=== PATIENT | male | born 1960 | race Caucasian/White ===

== ENCOUNTER 2019-05-14 18:36 | Inpatient (IN) ==
[2019-05-14] MEDS ORDERED: SODIUM CHLORIDE 0.9% 1000ML 1,000 ML IV SCH (19:15)
[2019-05-14 19:27] LABS: Basophils # (auto) 0.02 K/uL (0-0.2); Basophils % (auto) 0.2 %; Eosinophils # (auto) 0.01 K/uL (0-0.5); Eosinophils % (auto) 0.1 %; Hematocrit (blood only) 35.4 % (42-52); Hemoglobin 11.4 g/dL (14.0-18.0); Immature Granulocytes # (auto) 0.02 K/uL (0.00-0.02); Immature Granulocytes % (auto) 0.2 %; Lymphocytes % (auto) 10.5 %; Mean Corpuscular Hgb Conc 32.2 g/dL (32-36); Mean Corpuscular Volume 89.4 fL (80-100); Monocytes # (auto) 1.03 K/uL (0.11-0.59); Monocytes % (auto) 9.1 %; Neutrophils % (auto) 79.9 %; Platelet Count 302 K/uL (130-400); RDW Coefficient of Variation 15.7 % (11.5-14.5); RDW Standard Deviation 49.9 fL (36.4-46.3); Red Blood Count 3.96 M/uL (4.7-6.1); White Blood Count 11.38 K/uL (4.8-10.8)
--- NOTE | 2019-05-14 19:39 | XRay Report ---
XR chest 1V portable CLINICAL HISTORY: 58 years-old Male presenting with weakness. TECHNIQUE: Portable upright AP view of the chest was obtained. COMPARISON: 05/03/2019. FINDINGS: Cardiac silhouette mildly enlarged as on prior exam. Resolution of prior pulmonary vascular prominenc e. Resolution of prior interlobular septal thickening and added density in the lungs. No focal opacit y. No large effusion or pneumothorax. Degenerative changes of the thoracic spine. Upper abdomen melissa l. IMPRESSION: 1. Cardiomegaly with resolution of prior volume overload, congestive change, and pulmonary edema. No convincing evidence of acute cardiopulmonary disease on the current exam. Electronically signed by: Stanley Lopez M.D. 05/14/2019 7:38 PM
[2019-05-14 19:45] LABS: iSTAT Creatinine 1.2 mg/dl (0.6-1.3); iSTAT Hemoglobin 11.2 g/dl (14.0-18.0); iSTAT Ionized Calcium 1.09 mmol/l (1.12-1.32); iSTAT Potassium 5.1 mEq/L (3.3-5.0)
[2019-05-14 19:45] LABS: Alanine Aminotransferase 45 U/L (12-78); Albumin Level 3.3 gm/dl (3.4-5.0); Aspartate Aminotransferase 18 U/L (15-37); BUN Creatinine Ratio 23.6 (10-20); Blood Urea Nitrogen 32 mg/dl (7-18); Calcium 9.5 mg/dl (8.5-10.1); Carbon Dioxide 20 mmol/L (21-32); Chloride 107 mmol/L (98-107); Est GFR (African American) 67.5; Est GFR (Non-African American) 58.3; Glucose 163 mg/dl (70-99); Magnesium 1.6 mg/dl (1.8-2.4); Potassium 4.9 mmol/L (3.5-5.1); Sodium 138 mmol/L (136-145)
[2019-05-14 19:56] LABS: Albumin Globulin Ratio 0.6 (0.9-2); Alkaline Phosphatase 75 U/L (45-117); Bilirubin,Total 0.4 mg/dl (0.2-1); Creatine Kinase 29 U/L (39-308); Globulin 5.9 gm/dl (2.5-4.0); Total Protein 9.2 gm/dl (6.4-8.2)
--- NOTE | 2019-05-14 19:57 | CT Scan Report ---
CT head/brain wo con CLINICAL HISTORY: 58 years-old Male presenting with Pt c/o dizziness. TECHNIQUE: Multidetector CT imaging of the head was performed without the use of intravenous contrast . IV contrast: None. One or more dose lowering techniques were used consistent with the principles of ALARA (as low as reasonably achievable), including automatic exposure control, mA or kV adjustment t o individual patient size, and/or use of iterative reconstruction. COMPARISON: None. CT DOSE (mGy.cm): The estimated cumulative dose is 537.48 mGy.cm. FINDINGS: Commission Specialist topogram: Unremarkable. Ventricles and sulci normal in size. No hemorrhage. Brain parenchyma normal in appearance with preser sharifa zaldivar-white differentiation. No acute territorial infarct. No mass effect or midline shift. No ext ra-axial fluid collection. Paranasal sinuses and mastoid air cells clear. Calvarium intact. IMPRESSION: 1. No acute intracranial abnormality. Electronically signed by: Stanley Lopez M.D. 05/14/2019 7:56 PM
--- NOTE | 2019-05-14 20:06 | CT Scan Report ---
CT abd pelvis wo con CLINICAL HISTORY: 58 years-old Male presenting with ureteral stents, back pain. TECHNIQUE: Multidetector CT of the abdomen and pelvis was performed without the use of intravenous co ntrast. IV contrast: None. One or more dose lowering techniques were used consistent with the princip les of ALA (as low as reasonably achievable), including automatic exposure control, mA or kV adjust ment to individual patient size, and/or use of iterative reconstruction. COMPARISON: None. CT DOSE (mGy.cm): The estimated cumulative dose is 1468.87 mGy.cm. FINDINGS: Animal Care Giver topogram: Bilateral ureteral stents in place. Lung bases: Multichamber enlargement of the heart. Coronary artery calcification. No pericardial or p leural effusion. No focal infiltrate or nodule at the lung bases. Liver: Normal morphology. Normal density. Biliary: No gross biliary ductal dilatation allowing for noncontrast technique. Gallbladder contains gallstones. Pancreas: Normal noncontrast appearance. Spleen: Normal noncontrast appearance. Adrenal glands: Normal noncontrast appearance. Kidneys and ureters: Bilateral moderate perinephric fat infiltration. No right hydronephrosis. Mild t o moderate left pelvocaliectasis with distention of the left ureter to the level of 2 adjacent large calculi measuring 20 mm and 16 mm in the mid to distal left ureter. The right ureter is nondistended though there is a 7 mm calculus in the proximal right ureter. Bilateral urothelial thickening evident with bilateral ureteral stents in place. Bladder: 11 mm bladder calculus. Mild circumferential bladder wall thickening. Pelvic organs: Prostate enlargement likely secondary to benign prostatic hyperplasia. Bowel: Diverticulosis of the proximal to mid sigmoid colon and minimally in the distal descending col on. Focal wall thickening and trace pericolonic fat infiltration and peritoneal thickening in the lef t lower quadrant. The appendix is normal. No bowel obstruction. Peritoneal cavity: No extraluminal gas or fluid collection in the left lower quadrant adjacent to the inflamed sigmoid colon. No free intraperitoneal fluid or gas. Lymph nodes: No gross lymphadenopathy allowing for noncontrast technique. Vasculature: Atherosclerosis of the normal caliber abdominal aorta. Abdominal wall: Nodular infiltration in the subcutaneous tissue of the right chest wall (series 3 abby ge [id number]). Musculoskeletal: Degenerative changes of the spine. IMPRESSION: 1. Acute uncomplicated diverticulitis in the proximal to mid sigmoid colon in the left lower quadran t. No abscess or extraluminal gas. 2. Left pelvocaliectasis and distention of the left ureter raises concern for hydroureteronephrosis despite the presence of the left ureteral stent. 3. 2 adjacent large mid to distal left ureteral calculi may be resulting in obstruction or partial o bstruction. 4. Subcentimeter proximal right ureteral calculus. Right ureteral stent. No right hydronephrosis. 5. Urothelial thickening bilaterally may be reactive to the presence of the stents. Correlate with u rinalysis to exclude superinfection. 6. Prostatomegaly with suspected chronic bladder outlet obstruction. 7. Cholelithiasis. Electronically signed by: Stanley Lopez M.D. 05/14/2019 8:05 PM
--- NOTE | 2019-05-14 21:56 | History & Physical Report ---
Date of Service May 14, 2019 Assessment & Plan (1) Lightheadedness: Mr. Dorsey is a 58-year-old male with a past medical history of hypertension, diabetes mellitus, recent admission to [facility] for acute kidney injury secondary to bilateral nephrolithiasis, requiring emergent dialysis and bilateral ureteral stents who presents to the emergency department due to a 4- day history of lightheadedness. ED course: 1 L normal saline bolus Lightheadedness -Head CT negative -coincides with the start of both of his blood pressure medications, and seems orthostatic in nature -Orthostatic vital signs ordered -We will hold home amlodipine, and continue metoprolol -May also be related to palpitations, see below Palpitations -Patient describes long-standing history of a "fast heart rate," but denies a diagnosis of arrhythmia -TSH normal at 3.83, no electrolyte abnormalities noted -Reviewed records from [place], they mention a diagnosis of atrial fibrillation, however there are no further details and the patient is not on any anticoagula tion -EKG in the emergency department shows sinus tachycardia -Continue metoprolol -Monitor on telemetry -Request records from [place] from prior admission Acute diverticulitis -CT abdomen and pelvis shows acute uncomplicated diverticulitis in the proximal to mid sigmoid colon -mildly tachycardic, BP stable, afebrile, elevated WCC of 11.38 -no history of prior diverticulitis -IV Cipro and Flagyl ordered Bilateral nephrolithiasis -Patient is recently life flighted to [place] on 05/03 for bilateral nephrolithiasis resulting in acute kidney injury with a creatinine of 36 - patient required emergency dialysis -Creatinine has normalized to 1.35 -CT abdomen and pelvis today -> " left pelvic caliectasis and distention of the left ureter raises concern for hydroureteronephrosis despite the left ureteral stent. 2 adjacent large mid to distal left ureteral calculi may be resulting in obstruction" -Patient without any urinary symptoms, but does endorse left-sided back pain -consult urology, recommendations appreciated -CT scan also showed "urothelial thickening bilaterally - either reactive or superinfection" - will order UA to assess Hypertension -continue metoprolol, hold home amlodipine Diabetes mellitus -Hold home metformin -Place on insulin sliding scale with BSG AC/HS Hypomagnesemia -Magnesium 1.6 in the emergency department, repleted with 1 g magnesium sulfate CODE STATUS: Full DVT prophylaxis: Lovenox 40 mg SQ daily Disposition: Admit to med/surg with telemetry (2) Palpitations: (3) Diverticulitis: (4) Diabetes mellitus: (5) Hypertension: (6) Bilateral nephrolithiasis: History of Present Illness Chief Complaint: Lightheadedness Primary Care Provider: NO PCP Mr. Dorsey is a 58-year-old male with a past medical history of hypertension, diabetes mellitus, recent admission to [facility] for acute kidney injury secondary to bilateral nephrolithiasis, requiring emergent dialysis and bilateral ureteral stents who presents to the emergency department due to a 4-day history of lightheadedness. The patient states that he was started on several medications in [place], including 2 blood pressure medications. He states that after he started taking his medications 5 days ago, he began to feel lightheaded with standing. He denies any overt dizziness. He states that he is does not have any symptoms when lying down, however has a hard time walking due to severe lightheadedness, resulting in him feeling like he may pass out. He also endorses a long time history of a rapid heart rate, and states he feels like he "breathes heavier than regular people." He denies any history of chest pain, or prior history of [place]. He states he has never seen a [facility] for this, and has never been diagnosed with an arrhythmia. He denies any fever, chills, nausea, vomiting, or diarrhea. He states that he has been eating and drinking well. He has follow-up appointments arranged with a new primary care provider, and urologist, to establish care and follow-up from his recent discharge. Past medical history: HTN, Diabetes Mellitus, b/l nephrolithiasis Past surgical history: b/l ureteral stent placement Medications: Amlodipine, ferrous sulfate, folic acid, metformin, metoprolol, potassium chloride Allergies: No known drug allergies Social Hx: Quit smoking 25 years ago, chews tobacco daily. No recent alcohol or recreational drug use. Allergies Allergy/AdvReac Type Severity Reaction Status Date / Time No Known Allergies Allergy Unverified 05/14/19 20:13 Home Medications Home Medications Medication Instructions Recorded Confirmed Type amlodipine 2.5 mg tablet 2.5 mg PO DAILY 05/11/19 05/14/19 History ferrous sulfate 325 mg (65 mg 325 mg PO DAILY tab 05/11/19 05/14/19 History iron) tablet folic acid 1 mg tablet 1 mg PO DAILY 05/11/19 05/14/19 History metformin 500 mg tablet 500 mg PO BID 05/11/19 05/14/19 History metoprolol tartrate 50 mg tablet 50 mg PO BID 05/11/19 05/14/19 History potassium chloride ER 20 mEq 20 meq PO DAILY 05/11/19 05/14/19 History tablet,extended release Past Med/Surg History Social History Preferred Language: Hungarian Communication Ability: Effective Clean Room Assembler Required: No Beliefs That Will Affect Care: None marital status: Single Current Living Situation: Alone and Family Current Living Situation Comment: lives in downstairs apt from brother current occupational status: unemployed Other Information That Helps Us Care for You: No Feels Safe at Home: Yes Safety Concerns: Feels Safe At This Time Smoking Status: Former smoker Tobacco Type: smokeless tobacco ; Do You Dip or Chew Tobacco: No ; Hx Alcohol Use: No Hx Substance Use: No Review of Systems Constitutional: no fever, no chills, no fatigue and no anorexia Respiratory: no cough, no dyspnea, no pain on inspiration and no wheezing Cardiovascular: + palpitations; no chest pain, no syncope, no edema and no calf pain Gastrointestinal: no abdominal pain, no nausea, no vomiting, no change in bowel habits and no melena Genitourinary: no dysuria, no difficulty urinating, no urinary frequency, no urinary hesitancy, no hematuria and no flank pain Neurologic: + unsteadiness; no gait abnormality, no falls, no loss of sensation, no numbness, no syncope and no headache(s) Physical Exam Constitutional: WD/WN, vitals as above + disheveled, cooperative and comfortable Eyes: PERRL, conjunctivae normal, anicteric sclerae ENMT: external ear and nose normal, oropharynx normal Mouth: + poor dentition and + chipped teeth Respiratory: normal respiratory effort, lungs clear to auscultation Cardiovascular: Rate/Rhythm: regular rhythm and + tachycardic Extremities: no calf tenderness and no pedal edema Gastrointestinal (Abdomen): Percussion/Palpation: + abdomen tender (tender in LLQ) and abdomen soft; no guarding and abdomen not rigid Musculoskeletal: no cyanosis or clubbing, extremities motor strength 5/5 Skin: no rashes, warm and dry Neurologic: patellar DTR's 2+ bilat, sensation intact and PERRL, EOMI, accommodation nl, no face palsy, no dysarthria Psychiatric: A+Ox3, euthymic affect Results & Data Vital Signs (Past 12 Hours) Vital Signs Temp Pulse Pulse Resp BP BP Pulse Ox 05/14/19 20:49 100 H 16 112/71 94 05/14/19 20:38 102 H 18 95 05/14/19 19:04 112 H 24 109/76 93 05/14/19 18:43 36.6 C 82 22 105/66 98 Code Status & VTE Plan VTE Prophylaxis Plan VTE Prophylaxis will be ordered: Yes Supervising Physician Co-Signing Physician Notes Patient was seen and examined by me personally. I reviewed the chart, the orders and discussed the case in detail with Claudia Naik MD . I read this H&P and agree with its contents to entirety. PG Care Time/CCT Total # of Minutes Spent Total Time Spent with Patient: Total time spent is greater than 50% in coordination of care (as documented) at patient's floor/unit and/or counseling patient: Resident Activity Tracking Resident Involvement: Resident Care Provided Care Provided: Adult Hospital Medicine
[2019-05-14] MEDS ORDERED: GLUCAGON FOR INJ 1 MG VIAL SQ PRN (23:14)
[2019-05-14] MEDS ORDERED: MAGNESIUM SULFATE / D5W 1 GM/100 ML BAG IV ONE (23:14)
[2019-05-14] MEDS ORDERED: DEXTROSE 50% 50 ML SYRINGE IV PRN (23:14)
[2019-05-14] MEDS ORDERED: CARBOHYDRATES FOR HYPOGLYCEMIA PO PRN (23:14)
[2019-05-14] MEDS ORDERED: ACETAMINOPHEN 325 MG TAB PO PRN (23:14)
[2019-05-14] MEDS ORDERED: GLUCOSE 10 TABS/TUBE PO PRN (23:14)
[2019-05-14] MEDS ORDERED: GLUCOSE 40% GEL 15 GM TUBE PO PRN (23:14)
[2019-05-14] MEDS ORDERED: ONDANSETRON INJ 2 MG/ML 2 ML VIAL IV PRN (23:14)
[2019-05-15] MEDS: METOPROLOL TARTRATE 50 MG TAB PO SCH ×3 (00:19→20:19)
[2019-05-15] MEDS: metroNIDAZOLE 500 MG/100 ML BAG IV SCH ×4 (00:25→23:23)
--- NOTE | 2019-05-15 00:36 | Emergency Department Note ---
Entered by Marry Nowak acting as a scribe for Curtis Jamison MD History of Present Illness General Chief complaint: Dizziness Stated complaint: POSSIBLE ALLERGIC REACTION TO MEDICATIONS Time Seen by Provider: 05/14/19 19:04 Source: patient History of Present Illness Provider complaint: Dizziness Onset (ago): day(s) 2 Location: head Pain Consistency: + constant Maximum Pain Intensity: 1 Quality: + constant Associated symptoms: + other (Positive: dizziness, lightheadedness, rapid breathing. Negative: urinary symptoms ) The patient is a 58 year old male with past medical history of acute renal failure, dehydration, hyperkalemia, metabolic acidosis, hyperuricemia, who presents to the ED with complaints of constant dizziness and lightheadedness that started 2 days ago. The patient reports he is lightheaded and gets dizzy when he walks. He notes he breathes very rapidly when he takes a few steps. The patient additionally reports he thinks his symptoms might be due to starting new medications on Sunday. He reports he has history of very high potassium levels and kidney failure. He notes he has stents in his kidneys. The patient denies urinary symptoms. Home Medications Home Medications Medication Instructions Recorded Confirmed Type amlodipine 2.5 mg tablet 2.5 mg PO DAILY 05/11/19 05/14/19 History ferrous sulfate 325 mg (65 mg 325 mg PO DAILY tab 05/11/19 05/14/19 History iron) tablet folic acid 1 mg tablet 1 mg PO DAILY 05/11/19 05/14/19 History metformin 500 mg tablet 500 mg PO BID 05/11/19 05/14/19 History metoprolol tartrate 50 mg tablet 50 mg PO BID 05/11/19 05/14/19 History potassium chloride ER 20 mEq 20 meq PO DAILY 05/11/19 05/14/19 History tablet,extended release Allergies Allergy/AdvReac Type Severity Reaction Status Date / Time No Known Allergies Allergy Unverified 05/14/19 20:13 Past Med/Surg History Social History Preferred Language: Turkmen Communication Ability: Effective Dev 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 and A total of 10 systems reviewed and were otherwise negative Physical Exam Vital Signs Vital Signs - 24 hr 05/14/19 18:43 05/14/19 19:04 05/14/19 20:38 Temperature 36.6 C Temperature Source Oral Sepsis Recent Fever Within 48 Hours No Sepsis New/Unexplained Change in Mental Status No Sepsis Action Taken by Nursing No Action Required Pulse Rate 82 102 H Pulse Rate [Apical] 112 H Pulse Rhythm Regular Pulse Rhythm [Apical] Regular Respiratory Rate 22 24 18 Respiratory Effort / Characteristics Non-Labored Respiratory Depth Normal Shallow Respiratory Pattern Regular Tachypnea Blood Pressure 105/66 Blood Pressure [Right Arm] 109/76 Blood Pressure Mean 79 Blood Pressure Mean [Right Arm] 87 Blood Pressure Position Sitting Pulse Oximetry 98 93 95 Oxygen Delivery Method Room Air Room Air Room Air 05/14/19 20:39 05/14/19 20:49 Temperature 36.4 C L Temperature Source Oral Sepsis Recent Fever Within 48 Hours Sepsis New/Unexplained Change in Mental Status Sepsis Action Taken by Nursing Pulse Rate Pulse Rate [Apical] 103 H 100 H Pulse Rhythm Pulse Rhythm [Apical] Regular Respiratory Rate 28 H 16 Respiratory Effort / Characteristics Non-Labored Spontaneous Respiratory Depth Normal Respiratory Pattern Regular Blood Pressure Blood Pressure [Right Arm] 104/72 112/71 Blood Pressure Mean Blood Pressure Mean [Right Arm] 82 84 Blood Pressure Position Pulse Oximetry 94 94 Oxygen Delivery Method Room Air Room Air GENERAL: Awake, alert, well-appearing, in no acute distress HENT: Normocephalic, atraumatic. Oropharynx unremarkable. EYES: Normal conjunctiva. Sclera non-icteric. NECK: Supple. No nuchal rigidity. FROM. No JVD. RESPIRATORY: Clear to auscultation. CARDIAC: Regular rate, normal rhythm. Extremities warm and well perfused. Pulses equal. ABDOMEN: Soft, non-distended. No tenderness to palpation. No rebound or guarding. No masses. RECTAL: Deferred. MUSCULOSKELETAL: Chest examination reveals no tenderness. The back is symmetrical on inspection without obvious abnormality. There is no CVA tenderness to palpation. No joint edema. LOWER EXTREMITIES: Calves are equal size bilaterally and non-tender. +2 pitting edema bilaterally. No discoloration. NEURO: Normal sensorium. No sensory or motor deficits noted. SKIN: No rash or jaundice noted. Course 1910: The patient was evaluated in room A4B. A complete history and physical e xam was performed. 2050: I discussed the patient's case with Dr. Aguero, [facility] Hospitalist. He will evaluate the patient for further management. Administered Medications Metronidazole (Flagyl) 500 mg in 100 mls @ 100 mls/hr IV Q8H YASIR Stop: 05/25/19 00:00 Last Admin: 05/15/19 00:25 Dose: 100 mls/hr Documented by: [id number] Metoprolol Tartrate (Lopressor) 50 mg PO BID YASIR Stop: 06/13/19 23:13 Last Admin: 05/15/19 00:19 Dose: 50 mg Documented by: [id number] Discontinued Medications Sodium Chloride (Nss 1000ml) 1,000 mls @ 999 mls/hr IV .Q1H1M YASIR Stop: 05/14/19 20:15 Last Infusion: 05/14/19 22:17 Dose: 0 mls/hr Documented by: [id number] Admin: 05/14/19 20:26 Dose: 999 mls/hr Documented by: [id number] Magnesium Sulfate/Dextrose (Magnesium Sulfate / D5w) 1 gm in 100 mls @ 100 mls/hr IV ONE ONE Stop: 05/15/19 00:13 Last Admin: 05/15/19 00:24 Dose: 100 mls/hr Documented by: [id number] Medical Decision Making Differential Diagnosis Differential Diagnosis: Differential diagnosis includes etiologies such as benign positional vertigo, dehydration, hypovolemia, anemia, tumor, infection, hypoglycemia, electrolyte abnormalities, cardiac sources, intracerebral event, toxicologic, neurologic, as well as others were entertained. Medical Records Attestation: I reviewed the patient's medical records. Home Medications Current Medication List: was personally reviewed by me Laboratory Data Attestation: I reviewed the patient's lab results. Result diagrams: 05/14/19 19:07 05/14/19 19:07 Lab Results 05/14/19 05/14/19 05/14/19 Range/Units 19:07 19:07 19:10 WBC 11.38 H (4.8-10.8) K/uL RBC 3.96 L (4.7-6.1) M/uL Hgb 11.4 L (14.0-18.0) g/dL POC Hgb (14.0-18.0) g/dl Hct 35.4 L (42-52) % POC Hct (42-52) % MCV 89.4 (80-100) fL MCH 28.8 (25-34) pg MCHC 32.2 (32-36) g/dL RDW Std Deviation 49.9 H (36.4-46.3) fL RDW Coeff of Mayito 15.7 H (11.5-14.5) % Plt Count 302 (130-400) K/uL MPV 9.0 (7.4-10.4) fL Immature Gran % (Auto) 0.2 % Neut % (Auto) 79.9 % Lymph % (Auto) 10.5 % Mccreary % (Auto) 9.1 % Eos % (Auto) 0.1 % Baso % (Auto) 0.2 % Immature Gran # (Auto) 0.02 (0.00-0.02) K/uL Neut # (Auto) 9.10 H (1.4-6.5) K/uL Lymph # (Auto) 1.20 (1.2-3.4) K/uL Mccreary # (Auto) 1.03 H (0.11-0.59) K/uL Eos # (Auto) 0.01 (0-0.5) K/uL Baso # (Auto) 0.02 (0-0.2) K/uL POC Sodium (135-144) mEq/L Sodium 138 (136-145) mmol/L POC Potassium (3.3-5.0) mEq/L Potassium 4.9 (3.5-5.1) mmol/L POC Chloride (101-112) mEq/L Chloride 107 (98-107) mmol/L Carbon Dioxide 20 L (21-32) mmol/L POC Total CO2 (24-31) mEq/l Anion Gap 11.0 (3-11) POC Anion Gap (16-25) mmol/L POC BUN (7-18) mg/dl BUN 32 H (7-18) mg/dl Creatinine 1.35 (0.6-1.4) mg/dl POC Creatinine (0.6-1.3) mg/dl Est Cr Clr Drug Dosing Not Reportable Est GFR ( Amer) 67.5 Est GFR (Non-Af Amer) 58.3 BUN/Creatinine Ratio 23.6 H (10-20) Glucose 163 H (70-99) mg/dl POC Glucose 161 H (70-99) POC Glucose (other) (70-99) mg/dl Calcium 9.5 (8.5-10.1) mg/dl POC Ioniz Calcium Nabeel (1.12-1.32) mmol/l Magnesium 1.6 L (1.8-2.4) mg/dl Total Bilirubin 0.4 (0.2-1) mg/dl AST 18 (15-37) U/L ALT 45 (12-78) U/L Alkaline Phosphatase 75 (45-117) U/L Total Creatine Kinase 29 L (39-308) U/L Total Protein 9.2 H (6.4-8.2) gm/dl Albumin 3.3 L (3.4-5.0) gm/dl Globulin 5.9 H (2.5-4.0) gm/dl Albumin/Globulin Ratio 0.6 L (0.9-2) TSH 3.830 (0.300-4.500) uIu/ml 05/14/19 Range/Units 19:33 WBC (4.8-10.8) K/uL RBC (4.7-6.1) M/uL Hgb (14.0-18.0) g/dL POC Hgb 11.2 L (14.0-18.0) g/dl Hct (42-52) % POC Hct 33 L (42-52) % MCV (80-100) fL MCH (25-34) pg MCHC (32-36) g/dL RDW Std Deviation (36.4-46.3) fL RDW Coeff of Mayito (11.5-14.5) % Plt Count (130-400) K/uL MPV (7.4-10.4) fL Immature Gran % (Auto) % Neut % (Auto) % Lymph % (Auto) % Mccreary % (Auto) % Eos % (Auto) % Baso % (Auto) % Immature Gran # (Auto) (0.00-0.02) K/uL Neut # (Auto) (1.4-6.5) K/uL Lymph # (Auto) (1.2-3.4) K/uL Mccreary # (Auto) (0.11-0.59) K/uL Eos # (Auto) (0-0.5) K/uL Baso # (Auto) (0-0.2) K/uL POC Sodium 139 (135-144) mEq/L Sodium (136-145) mmol/L POC Potassium 5.1 H (3.3-5.0) mEq/L Potassium (3.5-5.1) mmol/L POC Chloride 107 (101-112) mEq/L Chloride (98-107) mmol/L Carbon Dioxide (21-32) mmol/L POC Total CO2 22 L (24-31) mEq/l Anion Gap (3-11) POC Anion Gap 16.0 (16-25) mmol/L POC BUN 39 H (7-18) mg/dl BUN (7-18) mg/dl Creatinine (0.6-1.4) mg/dl POC Creatinine 1.2 (0.6-1.3) mg/dl Est Cr Clr Drug Dosing Est GFR ( Amer) Est GFR (Non-Af Amer) BUN/Creatinine Ratio (10-20) Glucose (70-99) mg/dl POC Glucose (70-99) POC Glucose (other) 157 H (70-99) mg/dl Calcium (8.5-10.1) mg/dl POC Ioniz Calcium Nabeel 1.09 L (1.12-1.32) mmol/l Magnesium (1.8-2.4) mg/dl Total Bilirubin (0.2-1) mg/dl AST (15-37) U/L ALT (12-78) U/L Alkaline Phosphatase (45-117) U/L Total Creatine Kinase (39-308) U/L Total Protein (6.4-8.2) gm/dl Albumin (3.4-5.0) gm/dl Globulin (2.5-4.0) gm/dl Albumin/Globulin Ratio (0.9-2) TSH (0.300-4.500) uIu/ml Imaging Data Radiologist's Impression: Radiology results as stated below per my review and the radiologist's interpretation: XR chest 1V portable CLINICAL HISTORY: 58 years-old Male presenting with weakness. TECHNIQUE: Portable upright AP view of the chest was obtained. COMPARISON: 05/03/2019. FINDINGS: Cardiac silhouette mildly enlarged as on prior exam. Resolution of prior pulmonary vascular prominence. Resolution of prior interlobular septal t hickening and added density in the lungs. No focal opacity. No large effusion or pneumothorax. Degenerative changes of the thoracic spine. Upper abdomen normal. IMPRESSION: 1. Cardiomegaly with resolution of prior volume overload, congestive change, and pulmonary edema. No convincing evidence of acute cardiopulmonary disease on the current exam. Electronically signed by: Stanley Lopez M.D. 05/14/2019 7:[address] head/brain wo con CLINICAL HISTORY: 58 years-old Male presenting with Pt c/o dizziness. TECHNIQUE: Multidetector CT imaging of the head was performed without the use of intravenous contrast. IV contrast: None. One or more dose lowering techniques were used consistent with the principles of ALARA (as low as reasonably achievable), including automatic exposure control, mA or kV adjustment to individual patient size, and/or use of iterative reconstruction. COMPARISON: None. CT DOSE (mGy.cm): The estimated cumulative dose is 537.48 mGy.cm. FINDINGS: Money Room Supervisor topogram: Unremarkable. Ventricles and sulci normal in size. No hemorrhage. Brain parenchyma normal in appearance with preserved zaldivar-white differentiation. No acute territorial infarct. No mass effect or midline shift. No extra-axial fluid collection. Paranasal sinuses and mastoid air cells clear. Calvarium intact. IMPRESSION: 1. No acute intracranial abnormality. Electronically signed by: Stanley Lopez M.D. 05/14/2019 7:56 PM ADDENDUM Additional impression: 8. Nodular subcutaneous fat infiltration in the right chest wall. This is indeterminate. Correlate with physical exam. It is not known if this is associated with the right breast as the right nipple was not included within the [id number]. Electronically signed by: Stanley Lopez M.D. 05/14/2019 8:[address] abd pelvis wo con CLINICAL HISTORY: 58 years-old Male presenting with ureteral stents, back pain. TECHNIQUE: Multidetector CT of the abdomen and pelvis was performed without the use of intravenous contrast. IV contrast: None. One or more dose lowering techniques were used consistent with the principles of ALARA (as low as reasonably achievable), including automatic exposure control, mA or kV adjustment to individual patient size, and/or use of iterative reconstruction. COMPARISON: None. CT DOSE (mGy.cm): The estimated cumulative dose is 1468.87 mGy.cm. FINDINGS: Money Room Supervisor topogram: Bilateral ureteral stents in place. Lung bases: Multichamber enlargement of the heart. Coronary artery calcification. No pericardial or pleural effusion. No focal infiltrate or nodule at the lung bases. Liver: Normal morphology. Normal density. Biliary: No gross biliary ductal dilatation allowing for noncontrast technique. Gallbladder contains gallstones. Pancreas: Normal noncontrast appearance. Spleen: Normal noncontrast appearance. Adrenal glands: Normal noncontrast appearance. Kidneys and ureters: Bilateral moderate perinephric fat infiltration. No right hydronephrosis. Mild to moderate left pelvocaliectasis with distention of the left ureter to the level of 2 adjacent large calculi measuring 20 mm and 16 mm in the mid to distal left ureter. The right ureter is nondistended though there is a 7 mm calculus in the proximal right ureter. Bilateral urothelial thickening evident with bilateral ureteral stents in place. Bladder: 11 mm bladder calculus. Mild circumferential bladder wall thickening. Pelvic organs: Prostate enlargement likely secondary to benign prostatic hyperplasia. Bowel: Diverticulosis of the proximal to mid sigmoid colon and minimally in the distal descending colon. Focal wall thickening and trace pericolonic fat infiltration and peritoneal thickening in the left lower quadrant. The appendix is normal. No bowel obstruction. Peritoneal cavity: No extraluminal gas or fluid collection in the left lower quadrant adjacent to the inflamed sigmoid colon. No free intraperitoneal fluid or gas. Lymph nodes: No gross lymphadenopathy allowing for noncontrast technique. Vasculature: Atherosclerosis of the normal caliber abdominal aorta. Abdominal wall: Nodular infiltration in the subcutaneous tissue of the right chest wall (series 3 image 51). Musculoskeletal: Degenerative changes of the spine. IMPRESSION: 1. Acute uncomplicated diverticulitis in the proximal to mid sigmoid colon in the left lower quadrant. No abscess or extraluminal gas. 2. Left pelvocaliectasis and distention of the left ureter raises concern for hydroureteronephrosis despite the presence of the left ureteral stent. 3. 2 adjacent large mid to distal left ureteral calculi may be resulting in obstruction or partial obstruction. 4. Subcentimeter proximal right ureteral calculus. Right ureteral stent. No right hydronephrosis. 5. Urothelial thickening bilaterally may be reactive to the presence of the stents. Correlate with urinalysis to exclude superinfection. 6. Prostatomegaly with suspected chronic bladder outlet obstruction. 7. Cholelithiasis. Electronically signed by: Stanley Lopez M.D. 05/14/2019 8:05 PM Blood Pressure Blood Pressure Findings: Normal blood pressure Blood Pressure Disposition: did not require urgent referral MDM Narrative This is a 58-year-old male who presents to the emergency department complaining of dizziness. Patient was recently diagnosed with acute renal failure and went to [facility] for dialysis. His creatinine has recovered however I am concerned that the patient appears to have diverticulitis as well as swelling of the kidney. He was started on antibiotics in the emergency department. I did discuss case with the hospitalist service who agreed to admit the patient. Patient was in agreement with the treatment plan. Impression & Plan Dehydration, Diverticulitis, Lightheadedness Discharge Plan Visit Data *Final* Discharge Date/Time: 05/14/19 22:25 Chief Complaint: Dizziness Stated Complaint: POSSIBLE ALLERGIC REACTION TO MEDICATIONS ED Provider: Curtis Jamison Discharge Problem: Dehydration, Diverticulitis, Lightheadedness Patient Disposition: Admitted As Inpatient Discharge Instructions Interventions: ED Discharge Assessment Last Done: 05/14/19 22:25 The scribe's documentation has been prepared under my direction and personally reviewed by me in its entirety. I confirm that the note above accurately reflects all work, treatment, procedures, and medical decision making performed by me.
[2019-05-15] MEDS: CIPROFLOXACIN 400 MG/200 ML BAG IV SCH ×2 (01:29→13:32)
[2019-05-15] MEDS ORDERED: PNEUMOCOCCAL ADMINISTRATION CHARGE ONE (04:45)
[2019-05-15] MEDS ORDERED: PNEUMOCOCCAL POLYSACCHARIDES 25 MCG/0.5 ML VIAL/SYR IM ONE (04:45)
[2019-05-15] MEDS ORDERED: ENOXAPARIN INJ 40 MG/0.4 ML SYR SQ SCH (06:00)
[2019-05-15 06:23] LABS: Appearance Urine Clear (Clear); Bacteria Urine Automated Negative (Negative); Bilirubin Urine Negative (Negative); Blood Urine 2+ (Negative); Color Urine Yellow; Epithelial Cell Urine Auto >30 /lpf (0-5); Glucose Urine UA Negative (Negative); Ketones Urine Negative (Negative); Leukocyte Esterase Urine Trace (Negative); Nitrite Urine Negative (Negative); Protein Urine Trace (Negative); Urobilinogen Urine Negative (Negative)
[2019-05-15 07:17] LABS: Basophils # (auto) 0.03 K/uL (0-0.2); Basophils % (auto) 0.3 %; Eosinophils # (auto) 0.03 K/uL (0-0.5); Eosinophils % (auto) 0.3 %; Hematocrit (blood only) 32.7 % (42-52); Hemoglobin 10.5 g/dL (14.0-18.0); Immature Granulocytes # (auto) 0.02 K/uL (0.00-0.02); Immature Granulocytes % (auto) 0.2 %; Lymphocytes # (auto) 2.56 K/uL (1.2-3.4); Lymphocytes % (auto) 24.9 %; Mean Corpuscular Hgb Conc 32.1 g/dL (32-36); Mean Corpuscular Volume 90.3 fL (80-100); Monocytes # (auto) 1.07 K/uL (0.11-0.59); Monocytes % (auto) 10.4 %; Neutrophils # (auto) 6.58 K/uL (1.4-6.5); Neutrophils % (auto) 63.9 %; Platelet Count 276 K/uL (130-400); RDW Coefficient of Variation 16.1 % (11.5-14.5); RDW Standard Deviation 52.3 fL (36.4-46.3); Red Blood Count 3.62 M/uL (4.7-6.1); White Blood Count 10.29 K/uL (4.8-10.8)
[2019-05-15 07:50] LABS: BUN Creatinine Ratio 22.8 (10-20); Calcium 8.6 mg/dl (8.5-10.1); Creatinine Clr Calc Pharmacy 79.8 ml/min; Est GFR (African American) 68.2; Est GFR (Non-African American) 58.8; Potassium 4.5 mmol/L (3.5-5.1)
[2019-05-15] MEDS ORDERED: SODIUM CHLORIDE 0.9% 1000ML 500 ML IV ONE (08:08)
--- NOTE | 2019-05-15 08:27 | Urology Consultation ---
Date of Consultation May 15, 2019 Assessment & Plan (1) Bilateral nephrolithiasis: A/P 58 yo comorbid male, poor historian, with bilateral ureteral stones and bilateral ureteral stents placed at outside facility. Findings reviewed. Patient is adequately decompressed, Cr normalized, no s/s ongoing obstruction, CT findings not overly concerning. If there is concern over inadequate urinary drainage clinically by primary service the next step would be mireles placement - would avoid if possible. Check for UTI and cover as needed. Will need outside records and imaging from [facility]. Continue evaluation for source of ongoing SOB and lightheadedness. Renal function seems to be improved, less likely to still be source. Will assume urologic care of patient locally. When stabilized will need to have his stones addressed surgically - not urgent with adequate stent drainage. Semi-elective bilateral ureteoscopy with laser lithotripsy will likely be the modality of therapy. Will discuss further with patient when stabilized. Thank you for allowing us to participate in this patient's acute care. Please contact our service with any questions or concerns. History of Present Illness Reason for Consultation: Bilateral ureteral stents, stone disease, history of renal failure. Attending Physician: Anthony Doss MD History of Present Illness 58 yo male, poor historian, who was in his usual state of health until a few weeks ago when he presented locally to ER due to SOB, ? CVA symptoms. Evaluation demonstrated hyperkalemia, leukocytosis, renal failure with a Cr of 36 and bilateral obstructive ureteral stones. Patient was life-flighted to [facility] where he was managed acutely with bilateral ureteral stents and emergent dialysis. He was discharged with a plan for outpatient follow-up later this month. He is unsure of the specifics of his care or who he was due to see as outpatient. Impressively his Cr has normalized to 1.3. He is readmitted currently due to lightheadedness, palpitations and his chronic SOB. He reports he was told some of these symptoms were due to new BP meds. CT imaging has been done showing questionable mild L hydro with stent in place (not impressive on personal review especially in the context of the degree of hydronephrosis described on the patient's original CT scan, likely chronic), 7 mm R proximal stone, large L distal ureteral stone, bladder stone, R stent with incomplete coil in bladder, bilateral stent otherwise in place. consult is requested to assist with the patient's care. Allergies Allergy/AdvReac Type Severity Reaction Status Date / Time No Known Allergies Allergy Unverified 05/14/19 20:13 Home Medications Home Medications Medication Instructions Recorded Confirmed Type amlodipine 2.5 mg tablet 2.5 mg PO DAILY 05/11/19 05/14/19 History ferrous sulfate 325 mg (65 mg 325 mg PO DAILY tab 05/11/19 05/14/19 History iron) tablet folic acid 1 mg tablet 1 mg PO DAILY 05/11/19 05/14/19 History metformin 500 mg tablet 500 mg PO BID 05/11/19 05/14/19 History metoprolol tartrate 50 mg tablet 50 mg PO BID 05/11/19 05/14/19 History potassium chloride ER 20 mEq 20 meq PO DAILY 05/11/19 05/14/19 History tablet,extended release Patient History Social History Preferred Language: Malay Communication Ability: Effective Valve Steamer Required: No Beliefs That Will Affect Care: None marital status: Single Current Living Situation: Alone and Family Current Living Situation Comment: lives in downstairs apt from brother current occupational status: unemployed Feels Safe at Home: Yes Smoking Status: Former smoker Tobacco Type: smokeless tobacco ; Hx Alcohol Use: No Hx Substance Use: No Review of Systems Constitutional: + weakness; no fever and no chills Eyes: no diplopia Ear, Nose, Mouth, Throat: no ear pain and no hearing loss Respiratory: + dyspnea (chronic) Cardiovascular: + lightheadedness; no chest pain Gastrointestinal: + abdominal pain; no vomiting Genitourinary: + as per Subjective / HPI Musculoskeletal: + back pain Integumentary: no acne and no boil Neurologic: no paralysis Psychiatric: no hopelessness Endocrine: + fatigue Hematologic / Lymphatic: no lymphadenopathy Allergy / Immunological: no tongue swelling Physical Exam Constitutional: + obese; no acute distress Eyes: eyes not dysmorphic ENMT: Ears: no external ear abnormality Neck: trachea midline; no anterior neck swelling Respiratory: + respiratory distress (mild to moderate) and + labored breathing Cardiovascular: Vessels: + radial pulses abnormal Gastrointestinal (Abdomen): Inspection/Auscultation: + abdomen distended and + significant pannus Percussion/Palpation: abdomen soft; abdomen nontender Musculoskeletal: Head/Neck/Chest: normocephalic Skin: normal turgor Neurologic: awake; not obtunded Psychiatric: Orientation: oriented x 3 Lymphatic: no lymphadenopathy Results & Data Vital Signs (Past 12 Hours) Vital Signs Temp Pulse Pulse Resp BP BP Pulse Ox 05/15/19 07:22 36.6 C 84 20 99/68 L 94 05/15/19 05:10 83 14 99/66 L 94 05/15/19 04:00 36.4 C L 86 19 98/67 L 90 05/15/19 00:06 107 H 05/14/19 22:17 18 116/67 97 05/14/19 20:49 100 H 16 112/71 94 05/14/19 20:39 36.4 C L 103 H 28 H 104/72 94 05/14/19 20:38 102 H 18 95 Laboratory Results Laboratory Results - last 48 hr 05/14/19 05/14/19 05/14/19 19:07 19:07 19:10 WBC 11.38 H RBC 3.96 L Hgb 11.4 L POC Hgb Hct 35.4 L POC Hct MCV 89.4 MCH 28.8 MCHC 32.2 RDW Std Deviation 49.9 H RDW Coeff of [place] 15.7 H Plt Count 302 MPV 9.0 Immature Gran % (Auto) 0.2 Neut % (Auto) 79.9 Lymph % (Auto) 10.5 [place] % (Auto) 9.1 Eos % (Auto) 0.1 Baso % (Auto) 0.2 Immature Gran # (Auto) 0.02 Neut # (Auto) 9.10 H Lymph # (Auto) 1.20 [place] # (Auto) 1.03 H Eos # (Auto) 0.01 Baso # (Auto) 0.02 POC Sodium Sodium 138 POC Potassium Potassium 4.9 POC Chloride Chloride 107 Carbon Dioxide 20 L POC Total CO2 Anion Gap 11.0 POC Anion Gap POC BUN BUN 32 H Creatinine 1.35 POC Creatinine Est Cr Clr Drug Dosing Not Reportable Est GFR ( Amer) 67.5 Est GFR (Non-Af Amer) 58.3 BUN/Creatinine Ratio 23.6 H Glucose 163 H POC Glucose 161 H POC Glucose (other) Calcium 9.5 POC Ioniz Calcium Nabeel Magnesium 1.6 L Total Bilirubin 0.4 AST 18 ALT 45 Alkaline Phosphatase 75 Total Creatine Kinase 29 L Total Protein 9.2 H Albumin 3.3 L Globulin 5.9 H Albumin/Globulin Ratio 0.6 L TSH 3.830 Urine Color Urine Appearance Urine pH Ur Specific [place] Urine Protein Urine Glucose (UA) Urine Ketones Urine Blood Urine Nitrite Urine Bilirubin Urine Urobilinogen Ur Leukocyte Esterase Urine WBC (Auto) Urine RBC (Auto) U Hyaline Cast (Auto) U Epithel Cells (Auto) Urine Bacteria (Auto) 05/14/19 05/15/19 05/15/19 19:33 05:55 06:51 WBC 10.29 RBC 3.62 L Hgb 10.5 L POC Hgb 11.2 L Hct 32.7 L POC Hct 33 L MCV 90.3 MCH 29.0 MCHC 32.1 RDW Std Deviation 52.3 H RDW Coeff of [place] 16.1 H Plt Count 276 MPV 9.0 Immature Gran % (Auto) 0.2 Neut % (Auto) 63.9 Lymph % (Auto) 24.9 [place] % (Auto) 10.4 Eos % (Auto) 0.3 Baso % (Auto) 0.3 Immature Gran # (Auto) 0.02 Neut # (Auto) 6.58 H Lymph # (Auto) 2.56 [place] # (Auto) 1.07 H Eos # (Auto) 0.03 Baso # (Auto) 0.03 POC Sodium 139 Sodium POC Potassium 5.1 H Potassium POC Chloride 107 Chloride Carbon Dioxide POC Total CO2 22 L Anion Gap POC Anion Gap 16.0 POC BUN 39 H BUN Creatinine POC Creatinine 1.2 Est Cr Clr Drug Dosing Est GFR ( Amer) Est GFR (Non-Af Amer) BUN/Creatinine Ratio Glucose POC Glucose POC Glucose (other) 157 H Calcium POC Ioniz Calcium Nabeel 1.09 L Magnesium Total Bilirubin AST ALT Alkaline Phosphatase Total Creatine Kinase Total Protein Albumin Globulin Albumin/Globulin Ratio TSH Urine Color Yellow Urine Appearance Clear Urine pH 5.0 Ur Specific [place] 1.020 Urine Protein Trace H Urine Glucose (UA) Negative Urine Ketones Negative Urine Blood 2+ H Urine Nitrite Negative Urine Bilirubin Negative Urine Urobilinogen Negative Ur Leukocyte Esterase Trace H Urine WBC (Auto) 5-10 H Urine RBC (Auto) 5-10 H U Hyaline Cast (Auto) 1-5 U Epithel Cells (Auto) >30 H Urine Bacteria (Auto) Negative 05/15/19 05/15/19 06:51 08:24 WBC RBC Hgb POC Hgb Hct POC Hct MCV MCH MCHC RDW Std Deviation RDW Coeff of [place] Plt Count MPV Immature Gran % (Auto) Neut % (Auto) Lymph % (Auto) [place] % (Auto) Eos % (Auto) Baso % (Auto) Immature Gran # (Auto) Neut # (Auto) Lymph # (Auto) [place] # (Auto) Eos # (Auto) Baso # (Auto) POC Sodium Sodium 140 POC Potassium Potassium 4.5 POC Chloride Chloride 109 H Carbon Dioxide 23 POC Total CO2 Anion Gap 8.0 POC Anion Gap POC BUN BUN 31 H Creatinine 1.34 POC Creatinine Est Cr Clr Drug Dosing 79.8 Est GFR ( Amer) 68.2 Est GFR (Non-Af Amer) 58.8 BUN/Creatinine Ratio 22.8 H Glucose 128 H POC Glucose 147 H POC Glucose (other) Calcium 8.6 POC Ioniz Calcium Nabeel Magnesium Total Bilirubin AST ALT Alkaline Phosphatase Total Creatine Kinase Total Protein Albumin Globulin Albumin/Globulin Ratio TSH Urine Color Urine Appearance Urine pH Ur Specific [place] Urine Protein Urine Glucose (UA) Urine Ketones Urine Blood Urine Nitrite Urine Bilirubin Urine Urobilinogen Ur Leukocyte Esterase Urine WBC (Auto) Urine RBC (Auto) U Hyaline Cast (Auto) U Epithel Cells (Auto) Urine Bacteria (Auto) PG Care Time/CCT Total # of Minutes Spent Total Time Spent with Patient: Total time spent is greater than 50% in coordination of care (as documented) at patient's floor/unit and/or counseling patient:
[2019-05-15] MEDS: FOLIC ACID 1 MG TAB PO SCH (08:53)
[2019-05-15] MEDS: FERROUS SULFATE 325 MG TAB PO SCH (08:53)
[2019-05-15] MEDS: INSULIN ASPART 100 UNITS/ML 3 ML PEN SC SCH ×4 (08:59→21:34)
[2019-05-15] MEDS: SODIUM CHLORIDE 0.9% 1000ML 1,000 ML IV SCH ×2 (10:59→19:15)
--- NOTE | 2019-05-15 15:43 | Ultrasound Report ---
ULTRASOUND RIGHT LOWER EXTREMITY VENOUS CLINICAL HISTORY: Right leg swelling. COMPARISON STUDY: No priors. TECHNIQUE: Real-time, grayscale, and color Doppler sonography of the deep veins of the right lower ex tremity was performed from the inguinal crease to the calf. Compression and augmentation were utilize d. FINDINGS: There is occlusive deep venous thrombosis identified in the popliteal vein. This extends in to the calf within the posterior tibial and peroneal veins. The common femoral and superficial femora l veins are patent and normally compressible. The greater saphenous vein and the profunda femoris vei n at the junction with the common femoral vein are clear. IMPRESSION: There is occlusive deep venous thrombosis identified in the popliteal vein which extends into the calf. See above. Electronically signed by: Lauri Ramsey M.D. 05/15/2019 3:41 PM
[2019-05-15] MEDS ORDERED: Nursing to Pharmacy Communication ONE ×2 (17:32→20:23)
--- NOTE | 2019-05-15 19:00 | History & Physical Bridge Note ---
Date of Service May 15, 2019 History & Physical Bridge Note Pt seen and examined at bedside. Doing well at present with diminishing positional lightheadedness and no complaint of SOB or similar. LLQ pain is aching and faint, but present. Bowels have been regular. No urinary complaints. No PCP per pt, nor previous preventative screening. On exam, S1/S2 nl RRR no MCG. CTAB. Abd ND BS+ve, TTP upper LLQ. RLE with significant swelling, no dusky skin changes or TTP. DVT with likely PE - start rivaroxaban LLQ pain - diverticulitis called on noncontrast CT - continue cipro/flagyl, tolerating well and afebrile Hypertension - holding amlodipine, continue metoprolol. Likely not to resume amlodipine on discharge regardless. For attending attestation and further detail, see resident note from day of encounter.
--- NOTE | 2019-05-15 19:32 | Family Medicine Progress Note ---
Date of Service May 15, 2019 Assessment & Plan (1) Lightheadedness: 58 M here with lightheadedness, palpitations with new supplemental O2 requirement and unilateral leg swelling. DVT RLE / mild hypoxia - + on U/S in RLE - start on rivaroxaban - appreciate for CM to check for cost - suspect PE given new O2 demand - wary of using IV contrast if not necessary given very recent florid kidney failure and emergent dialysis (now since resolved, see below) - will add TTE to assess for right heart strain. Orthostatic hypotension - cont maint fluids - agree with holding amlodipine. Cont metoprolol. Diverticulitis - incidental finding on CT abd (which was to assess ureteral stents) - cont cipro flagyl, tolerating well Ureteral stents, recent h/o fulminant kidney failure - did req emergent dialysis in [place] on 05/03 for bilateral nephrolithiasis resulting in acute kidney injury with a creatinine of 36 - CT shows reactive urotherlium - seen by Urology here, no acute issues or interventions needed with regard to stents. - follow BMP. FEN/GI: DM2, NSS @ 125 ml/hr. DVT ppx: on rivaraxoban CODE STATUS: FULL DISPO: med/tele Other ongoing medical issues: HTN: holding home amlodipine. Cont home metoprolol. T2DM: ISS here (2) DVT of lower extremity (deep venous thrombosis): (3) Diverticulitis: (4) Palpitations: Supervising Physician Co-Signing Physician Notes Attending attestation Pt seen and examined in concert with Dr. Beasley. In agreement with the documented findings as noted in the resident documentation with any exceptions or additions as noted here. Doing well at present with diminishing positional lightheadedness and no complaint of SOB or similar. LLQ pain is aching and faint, but present. Bowels have been regular. No urinary complaints. No PCP per pt, nor previous preventative screening. On exam, S1/S2 nl RRR no MCG. CTAB. Abd ND BS+ve, TTP upper LLQ. RLE with significant swelling, no dusky skin changes or TTP. DVT with likely PE - start rivaroxaban LLQ pain - diverticulitis called on noncontrast CT - continue cipro/flagyl, tolerating well and afebrile Hypertension - holding amlodipine, continue metoprolol. Likely not to resume amlodipine on discharge regardless. Else see resident documentation as noted. Subjective Still with some lightheadedness, subjective palpitations. Dyspnea with exertion. Now with O2 requirement. Tolerating PO otherwise, denies chest pain or severe abdominal pain. Review of Systems Review of Systems: All systems reviewed & are unremarkable except as noted in HPI & below Physical Exam Physical Exam: Vitals noted and within normal limits with the exception of hypoxia, mild hypotension GENERAL: Awake, alert to person, place, and time, nontoxic-appearing, in no distress. HENT: Normocephalic, atraumatic. Nasal cannula in place. Mucus membranes appear moist. EYES: Normal conjunctiva. Sclera non-icteric. EOMI. NECK: Supple. Full range of motion. No JVD. RESPIRATORY: Clear to auscultation. Normal work of breathing. CARDIAC: Regular rate, normal rhythm. Extremities warm and well perfused, 2+ r adial pulses bilaterally; 2+ posterior tibialis pulses bilaterally. ABDOMEN: Soft, non-distended. very mild tenderness to palpation in llq. Bowel sounds are normal. LOWER EXTREMITIES: Inspection of calves reveal RIGHT >> LEFT. They are non- tender. trace edema. No discoloration. NEURO: No gross focal motor deficits noted. Sensation in tact. CN II-XII grossly in tact. . SKIN: Rash not present. No jaundice noted. PSYCH: Appropriate mood and affect. Cooperative. Exam as done by Antonia Beasley MD, [employer]. Results & Data Vital Signs (Past 12 Hours) Vital Signs Temp Pulse Pulse Resp BP Pulse Ox 05/15/19 16:00 74 05/15/19 11:41 36.4 C L 81 20 97/70 L 94 05/15/19 08:00 81 05/15/19 07:22 36.6 C 84 20 99/68 L 94 Laboratory Results 05/15/19 05/15/19 05/15/19 Range/Units 16:17 12:02 08:25 WBC (4.8-10.8) K/uL RBC (4.7-6.1) M/uL Hgb (14.0-18.0) g/dL POC Hgb (14.0-18.0) g/dl Hct (42-52) % POC Hct (42-52) % MCV (80-100) fL MCH (25-34) pg MCHC (32-36) g/dL RDW Std Deviation (36.4-46.3) fL RDW Coeff of Mayito (11.5-14.5) % Plt Count (130-400) K/uL MPV (7.4-10.4) fL Immature Gran % (Auto) % Neut % (Auto) % Lymph % (Auto) % Vernon % (Auto) % Eos % (Auto) % Baso % (Auto) % Immature Gran # (Auto) (0.00-0.02) K/uL Neut # (Auto) (1.4-6.5) K/uL Lymph # (Auto) (1.2-3.4) K/uL Vernon # (Auto) (0.11-0.59) K/uL Eos # (Auto) (0-0.5) K/uL Baso # (Auto) (0-0.2) K/uL POC Sodium (135-144) mEq/L Sodium (136-145) mmol/L POC Potassium (3.3-5.0) mEq/L Potassium (3.5-5.1) mmol/L POC Chloride (101-112) mEq/L Chloride (98-107) mmol/L Carbon Dioxide (21-32) mmol/L POC Total CO2 (24-31) mEq/l Anion Gap (3-11) POC Anion Gap (16-25) mmol/L POC BUN (7-18) mg/dl BUN (7-18) mg/dl Creatinine (0.6-1.4) mg/dl POC Creatinine (0.6-1.3) mg/dl Est Cr Clr Drug Dosing Est GFR ( Amer) Est GFR (Non-Af Amer) BUN/Creatinine Ratio (10-20) Glucose (70-99) mg/dl POC Glucose 125 H 116 H (70-99) POC Glucose (other) (70-99) mg/dl Calcium (8.5-10.1) mg/dl POC Ioniz Calcium Nabeel (1.12-1.32) mmol/l Magnesium (1.8-2.4) mg/dl Total Bilirubin (0.2-1) mg/dl AST (15-37) U/L ALT (12-78) U/L Alkaline Phosphatase (45-117) U/L Total Creatine Kinase (39-308) U/L Troponin I 0.069 H* (0-0.045) ng/ml Total Protein (6.4-8.2) gm/dl Albumin (3.4-5.0) gm/dl Globulin (2.5-4.0) gm/dl Albumin/Globulin Ratio (0.9-2) TSH (0.300-4.500) uIu/ml Urine Color Urine Appearance (Clear) Urine pH (4.5-7.5) Ur Specific [place] (1.000-1.030) Urine Protein (Negative) Urine Glucose (UA) (Negative) Urine Ketones (Negative) Urine Blood (Negative) Urine Nitrite (Negative) Urine Bilirubin (Negative) Urine Urobilinogen (Negative) Ur Leukocyte Esterase (Negative) Urine WBC (Auto) (0-5) /hpf Urine RBC (Auto) (0-4) /hpf U Hyaline Cast (Auto) (0-5) /lpf U Epithel Cells (Auto) (0-5) /lpf Urine Bacteria (Auto) (Negative) Hepatitis C Ab Screen (Neg) 05/15/19 05/15/19 05/15/19 Range/Units 08:24 06:51 06:51 WBC 10.29 (4.8-10.8) K/uL RBC 3.62 L (4.7-6.1) M/uL Hgb 10.5 L (14.0-18.0) g/dL POC Hgb (14.0-18.0) g/dl Hct 32.7 L (42-52) % POC Hct (42-52) % MCV 90.3 (80-100) fL MCH 29.0 (25-34) pg MCHC 32.1 (32-36) g/dL RDW Std Deviation 52.3 H (36.4-46.3) fL RDW Coeff of Mayito 16.1 H (11.5-14.5) % Plt Count 276 (130-400) K/uL MPV 9.0 (7.4-10.4) fL Immature Gran % (Auto) 0.2 % Neut % (Auto) 63.9 % Lymph % (Auto) 24.9 % Vernon % (Auto) 10.4 % Eos % (Auto) 0.3 % Baso % (Auto) 0.3 % Immature Gran # (Auto) 0.02 (0.00-0.02) K/uL Neut # (Auto) 6.58 H (1.4-6.5) K/uL Lymph # (Auto) 2.56 (1.2-3.4) K/uL Vernon # (Auto) 1.07 H (0.11-0.59) K/uL Eos # (Auto) 0.03 (0-0.5) K/uL Baso # (Auto) 0.03 (0-0.2) K/uL POC Sodium (135-144) mEq/L Sodium 140 (136-145) mmol/L POC Potassium (3.3-5.0) mEq/L Potassium 4.5 (3.5-5.1) mmol/L POC Chloride (101-112) mEq/L Chloride 109 H (98-107) mmol/L Carbon Dioxide 23 (21-32) mmol/L POC Total CO2 (24-31) mEq/l Anion Gap 8.0 (3-11) POC Anion Gap (16-25) mmol/L POC BUN (7-18) mg/dl BUN 31 H (7-18) mg/dl Creatinine 1.34 (0.6-1.4) mg/dl POC Creatinine (0.6-1.3) mg/dl Est Cr Clr Drug Dosing 79.8 Est GFR ( Amer) 68.2 Est GFR (Non-Af Amer) 58.8 BUN/Creatinine Ratio 22.8 H (10-20) Glucose 128 H (70-99) mg/dl POC Glucose 147 H (70-99) POC Glucose (other) (70-99) mg/dl Calcium 8.6 (8.5-10.1) mg/dl POC Ioniz Calcium Nabeel (1.12-1.32) mmol/l Magnesium (1.8-2.4) mg/dl Total Bilirubin (0.2-1) mg/dl AST (15-37) U/L ALT (12-78) U/L Alkaline Phosphatase (45-117) U/L Total Creatine Kinase (39-308) U/L Troponin I (0-0.045) ng/ml Total Protein (6.4-8.2) gm/dl Albumin (3.4-5.0) gm/dl Globulin (2.5-4.0) gm/dl Albumin/Globulin Ratio (0.9-2) TSH (0.300-4.500) uIu/ml Urine Color Urine Appearance (Clear) Urine pH (4.5-7.5) Ur Specific [place] (1.000-1.030) Urine Protein (Negative) Urine Glucose (UA) (Negative) Urine Ketones (Negative) Urine Blood (Negative) Urine Nitrite (Negative) Urine Bilirubin (Negative) Urine Urobilinogen (Negative) Ur Leukocyte Esterase (Negative) Urine WBC (Auto) (0-5) /hpf Urine RBC (Auto) (0-4) /hpf U Hyaline Cast (Auto) (0-5) /lpf U Epithel Cells (Auto) (0-5) /lpf Urine Bacteria (Auto) (Negative) Hepatitis C Ab Screen (Neg) 05/15/19 05/14/19 05/14/19 Range/Units 05:55 19:33 19:07 WBC (4.8-10.8) K/uL RBC (4.7-6.1) M/uL Hgb (14.0-18.0) g/dL POC Hgb 11.2 L (14.0-18.0) g/dl Hct (42-52) % POC Hct 33 L (42-52) % MCV (80-100) fL MCH (25-34) pg MCHC (32-36) g/dL RDW Std Deviation (36.4-46.3) fL RDW Coeff of Mayito (11.5-14.5) % Plt Count (130-400) K/uL MPV (7.4-10.4) fL Immature Gran % (Auto) % Neut % (Auto) % Lymph % (Auto) % Vernon % (Auto) % Eos % (Auto) % Baso % (Auto) % Immature Gran # (Auto) (0.00-0.02) K/uL Neut # (Auto) (1.4-6.5) K/uL Lymph # (Auto) (1.2-3.4) K/uL Vernon # (Auto) (0.11-0.59) K/uL Eos # (Auto) (0-0.5) K/uL Baso # (Auto) (0-0.2) K/uL POC Sodium 139 (135-144) mEq/L Sodium (136-145) mmol/L POC Potassium 5.1 H (3.3-5.0) mEq/L Potassium (3.5-5.1) mmol/L POC Chloride 107 (101-112) mEq/L Chloride (98-107) mmol/L Carbon Dioxide (21-32) mmol/L POC Total CO2 22 L (24-31) mEq/l Anion Gap (3-11) POC Anion Gap 16.0 (16-25) mmol/L POC BUN 39 H (7-18) mg/dl BUN (7-18) mg/dl Creatinine (0.6-1.4) mg/dl POC Creatinine 1.2 (0.6-1.3) mg/dl Est Cr Clr Drug Dosing Est GFR ( Amer) Est GFR (Non-Af Amer) BUN/Creatinine Ratio (10-20) Glucose (70-99) mg/dl POC Glucose (70-99) POC Glucose (other) 157 H (70-99) mg/dl Calcium (8.5-10.1) mg/dl POC Ioniz Calcium Nabeel 1.09 L (1.12-1.32) mmol/l Magnesium (1.8-2.4) mg/dl Total Bilirubin (0.2-1) mg/dl AST (15-37) U/L ALT (12-78) U/L Alkaline Phosphatase (45-117) U/L Total Creatine Kinase (39-308) U/L Troponin I (0-0.045) ng/ml Total Protein (6.4-8.2) gm/dl Albumin (3.4-5.0) gm/dl Globulin (2.5-4.0) gm/dl Albumin/Globulin Ratio (0.9-2) TSH (0.300-4.500) uIu/ml Urine Color Yellow Urine Appearance Clear (Clear) Urine pH 5.0 (4.5-7.5) Ur Specific [place] 1.020 (1.000-1.030) Urine Protein Trace H (Negative) Urine Glucose (UA) Negative (Negative) Urine Ketones Negative (Negative) Urine Blood 2+ H (Negative) Urine Nitrite Negative (Negative) Urine Bilirubin Negative (Negative) Urine Urobilinogen Negative (Negative) Ur Leukocyte Esterase Trace H (Negative) Urine WBC (Auto) 5-10 H (0-5) /hpf Urine RBC (Auto) 5-10 H (0-4) /hpf U Hyaline Cast (Auto) 1-5 (0-5) /lpf U Epithel Cells (Auto) >30 H (0-5) /lpf Urine Bacteria (Auto) Negative (Negative) Hepatitis C Ab Screen Neg (Neg) 05/14/19 05/14/19 Range/Units 19:07 19:07 WBC 11.38 H (4.8-10.8) K/uL RBC 3.96 L (4.7-6.1) M/uL Hgb 11.4 L (14.0-18.0) g/dL POC Hgb (14.0-18.0) g/dl Hct 35.4 L (42-52) % POC Hct (42-52) % MCV 89.4 (80-100) fL MCH 28.8 (25-34) pg MCHC 32.2 (32-36) g/dL RDW Std Deviation 49.9 H (36.4-46.3) fL RDW Coeff of Mayito 15.7 H (11.5-14.5) % Plt Count 302 (130-400) K/uL MPV 9.0 (7.4-10.4) fL Immature Gran % (Auto) 0.2 % Neut % (Auto) 79.9 % Lymph % (Auto) 10.5 % Vernon % (Auto) 9.1 % Eos % (Auto) 0.1 % Baso % (Auto) 0.2 % Immature Gran # (Auto) 0.02 (0.00-0.02) K/uL Neut # (Auto) 9.10 H (1.4-6.5) K/uL Lymph # (Auto) 1.20 (1.2-3.4) K/uL Vernon # (Auto) 1.03 H (0.11-0.59) K/uL Eos # (Auto) 0.01 (0-0.5) K/uL Baso # (Auto) 0.02 (0-0.2) K/uL POC Sodium (135-144) mEq/L Sodium 138 (136-145) mmol/L POC Potassium (3.3-5.0) mEq/L Potassium 4.9 (3.5-5.1) mmol/L POC Chloride (101-112) mEq/L Chloride 107 (98-107) mmol/L Carbon Dioxide 20 L (21-32) mmol/L POC Total CO2 (24-31) mEq/l Anion Gap 11.0 (3-11) POC Anion Gap (16-25) mmol/L POC BUN (7-18) mg/dl BUN 32 H (7-18) mg/dl Creatinine 1.35 (0.6-1.4) mg/dl POC Creatinine (0.6-1.3) mg/dl Est Cr Clr Drug Dosing Not Reportable Est GFR ( Amer) 67.5 Est GFR (Non-Af Amer) 58.3 BUN/Creatinine Ratio 23.6 H (10-20) Glucose 163 H (70-99) mg/dl POC Glucose (70-99) POC Glucose (other) (70-99) mg/dl Calcium 9.5 (8.5-10.1) mg/dl POC Ioniz Calcium Nabeel (1.12-1.32) mmol/l Magnesium 1.6 L (1.8-2.4) mg/dl Total Bilirubin 0.4 (0.2-1) mg/dl AST 18 (15-37) U/L ALT 45 (12-78) U/L Alkaline Phosphatase 75 (45-117) U/L Total Creatine Kinase 29 L (39-308) U/L Troponin I (0-0.045) ng/ml Total Protein 9.2 H (6.4-8.2) gm/dl Albumin 3.3 L (3.4-5.0) gm/dl Globulin 5.9 H (2.5-4.0) gm/dl Albumin/Globulin Ratio 0.6 L (0.9-2) TSH 3.830 (0.300-4.500) uIu/ml Urine Color Urine Appearance (Clear) Urine pH (4.5-7.5) Ur Specific [place] (1.000-1.030) Urine Protein (Negative) Urine Glucose (UA) (Negative) Urine Ketones (Negative) Urine Blood (Negative) Urine Nitrite (Negative) Urine Bilirubin (Negative) Urine Urobilinogen (Negative) Ur Leukocyte Esterase (Negative) Urine WBC (Auto) (0-5) /hpf Urine RBC (Auto) (0-4) /hpf U Hyaline Cast (Auto) (0-5) /lpf U Epithel Cells (Auto) (0-5) /lpf Urine Bacteria (Auto) (Negative) Hepatitis C Ab Screen (Neg) Medications Administered Current Inpatient Medications Acetaminophen (Tylenol) 650 mg PO Q4H PRN PRN Reason: pain/fever Stop: 06/13/19 23:13 Dextrose (Dextrose 50%) 25 - 50 ml IV UD PRN; Protocol PRN Reason: Hypoglycemia Protocol Stop: 06/13/19 23:13 Ferrous Sulfate (Feosol) 325 mg PO DAILY YASIR Stop: 06/14/19 08:59 Last Admin: 05/15/19 08:53 Dose: 325 mg Documented by: Folic Acid (Folvite) 1 mg PO DAILY YASIR Stop: 06/14/19 08:59 Last Admin: 05/15/19 08:53 Dose: 1 mg Documented by: Glucagon (Glucagen) 1 mg SQ UD PRN; Protocol PRN Reason: Hypoglycemia Protocol Stop: 06/13/19 23:13 Glucose (Glucose 40%) 15 - 30 gm PO UD PRN; Protocol PRN Reason: Hypoglycemia Protocol Stop: 06/13/19 23:13 Glucose (Dex4 Glucose) 4 - 8 tabs PO UD PRN; Protocol PRN Reason: Hypoglycemia Protocol Stop: 06/13/19 23:13 Metronidazole (Flagyl) 500 mg in 100 mls @ 100 mls/hr IV Q8H [facility] Stop: 05/25/19 00:00 Last Infusion: 05/15/19 17:21 Dose: Infused Documented by: Ciprofloxacin (Cipro) 400 mg in 200 mls @ 100 mls/hr IV Q12H YASIR; Protocol Stop: 05/25/19 01:59 Last Infusion: 05/15/19 15:50 Dose: Infused Documented by: Sodium Chloride (Nss 1000ml) 1,000 mls @ 125 mls/hr IV .Q8H YASIR Stop: 06/14/19 08:14 Last Admin: 05/15/19 19:15 Dose: 125 mls/hr Documented by: Insulin Aspart (Novolog Flexpen) 0 units SC ACHS YASIR Stop: 06/14/19 07:29 Last Admin: 05/15/19 17:17 Dose: 2 units Documented by: Metoprolol Tartrate (Lopressor) 50 mg PO BID [facility] Stop: 06/13/19 23:13 Last Admin: 05/15/19 08:54 Dose: 50 mg Documented by: Miscellaneous (Carbohydrates For Hypoglycemia) 15 - 30 gm PO UD PRN PRN Reason: Hypoglycemia Treatment Stop: 06/13/19 23:13 Ondansetron HCl (Zofran) 4 mg IV Q6H PRN PRN Reason: Nausea Stop: 06/13/19 23:13 Rivaroxaban (Xarelto) 15 mg PO BID [facility] Stop: 06/14/19 20:59 PG Care Time/CCT Total # of Minutes Spent Total Time Spent with Patient: Total time spent is greater than 50% in coordination of care (as documented) at patient's floor/unit and/or counseling patient: Resident Activity Tracking Resident Involvement: Resident Care Provided Care Provided: Adult Hospital Medicine
[2019-05-15] MEDS: RIVAROXABAN 15 MG TAB PO SCH (20:20)
[2019-05-16] MEDS: CIPROFLOXACIN 400 MG/200 ML BAG IV SCH ×2 (01:19→14:01)
[2019-05-16] MEDS: SODIUM CHLORIDE 0.9% 1000ML 1,000 ML IV SCH ×3 (03:20→18:15)
[2019-05-16 06:25] LABS: Basophils # (auto) 0.03 K/uL (0-0.2); Basophils % (auto) 0.4 %; Eosinophils # (auto) 0.14 K/uL (0-0.5); Eosinophils % (auto) 1.7 %; Hematocrit (blood only) 29.4 % (42-52); Hemoglobin 9.3 g/dL (14.0-18.0); Immature Granulocytes # (auto) 0.01 K/uL (0.00-0.02); Immature Granulocytes % (auto) 0.1 %; Lymphocytes # (auto) 2.31 K/uL (1.2-3.4); Lymphocytes % (auto) 27.6 %; Mean Corpuscular Hgb Conc 31.6 g/dL (32-36); Mean Corpuscular Volume 90.7 fL (80-100); Mean Platelet Volume 8.7 fL (7.4-10.4); Monocytes # (auto) 1.05 K/uL (0.11-0.59); Monocytes % (auto) 12.5 %; Neutrophils # (auto) 4.83 K/uL (1.4-6.5); Neutrophils % (auto) 57.7 %; Platelet Count 221 K/uL (130-400); RDW Coefficient of Variation 15.8 % (11.5-14.5); RDW Standard Deviation 52.1 fL (36.4-46.3); Red Blood Count 3.24 M/uL (4.7-6.1); White Blood Count 8.37 K/uL (4.8-10.8)
[2019-05-16 06:52] LABS: BUN Creatinine Ratio 22.1 (10-20); Calcium 8.6 mg/dl (8.5-10.1); Creatinine Clr Calc Pharmacy 85.9 ml/min; Est GFR (African American) 74.1; Potassium 4.3 mmol/L (3.5-5.1)
[2019-05-16] MEDS: INSULIN ASPART 100 UNITS/ML 3 ML PEN SC SCH ×4 (08:07→21:53)
[2019-05-16] MEDS: metroNIDAZOLE 500 MG/100 ML BAG IV SCH ×3 (08:07→23:30)
[2019-05-16] MEDS: FOLIC ACID 1 MG TAB PO SCH (08:08)
[2019-05-16] MEDS: RIVAROXABAN 15 MG TAB PO SCH ×2 (08:08→20:31)
[2019-05-16] MEDS: METOPROLOL TARTRATE 50 MG TAB PO SCH (08:08)
[2019-05-16] MEDS: FERROUS SULFATE 325 MG TAB PO SCH (08:08)
--- NOTE | 2019-05-16 08:47 | Urology Progress Note ---
Date of Service May 16, 2019 Assessment & Plan (1) Bilateral nephrolithiasis: A/P 58 yo comorbid male, poor historian, with bilateral ureteral stones and bilateral ureteral stents placed at outside facility. Findings reviewed. Patient is adequately decompressed, Cr normalized, no s/s ongoing obstruction, past CT findings not overly concerning. When stabilized will need to have his stones addressed surgically with our service. Semi- elective bilateral ureteoscopy with laser lithotripsy will likely be the modality of therapy. Will discuss further with patient when stabilized as outpatient - will arrange for OP f/u in 2-3 weeks to coordinate. Patient instructed to expect hematuria to arise with anticoagulation seen indwelling bilateral ureteral stents. Thank you for allowing us to participate in this patient's acute care. Subjective 58 yo male with bilateral ureteral stent and stones. He notes a DVT was found yesterday, pending anticoagulation. Past notes and labs reviewed, no new c/o, voiding clear urine. Review of Systems Constitutional: + weakness; no fever and no chills Eyes: no diplopia Respiratory: + dyspnea (chronic) Cardiovascular: + lightheadedness; no chest pain Gastrointestinal: + abdominal pain; no vomiting Genitourinary: + as per Subjective / HPI Musculoskeletal: + back pain Integumentary: no acne Neurologic: no paralysis Psychiatric: no hopelessness Endocrine: + fatigue Physical Exam Constitutional: + obese; no acute distress Eyes: eyes not dysmorphic ENMT: Ears: no external ear abnormality Neck: trachea midline; no anterior neck swelling Respiratory: + respiratory distress (mild to moderate) and + labored breathing Cardiovascular: Vessels: + radial pulses abnormal Gastrointestinal (Abdomen): Inspection/Auscultation: + abdomen distended and + significant pannus Percussion/Palpation: abdomen soft; abdomen nontender Musculoskeletal: Head/Neck/Chest: normocephalic Skin: normal turgor Neurologic: awake; not obtunded Psychiatric: Orientation: oriented x 3 Lymphatic: no lymphadenopathy Results & Data Vital Signs (Past 12 Hours) Vital Signs Temp Pulse Pulse Resp BP Pulse Ox 05/16/19 07:28 36.5 C 78 20 117/80 93 05/16/19 03:51 36.3 C L 81 20 109/77 96 05/15/19 23:34 83 05/15/19 23:02 36.7 C 84 20 91/62 L 90 Laboratory Results Laboratory Results - last 48 hr 05/14/19 05/14/19 05/14/19 19:07 19:07 19:07 WBC 11.38 H RBC 3.96 L Hgb 11.4 L POC Hgb Hct 35.4 L POC Hct MCV 89.4 MCH 28.8 MCHC 32.2 RDW Std Deviation 49.9 H RDW Coeff of Mayito 15.7 H Plt Count 302 MPV 9.0 Immature Gran % (Auto) 0.2 Neut % (Auto) 79.9 Lymph % (Auto) 10.5 King % (Auto) 9.1 Eos % (Auto) 0.1 Baso % (Auto) 0.2 Immature Gran # (Auto) 0.02 Neut # (Auto) 9.10 H Lymph # (Auto) 1.20 King # (Auto) 1.03 H Eos # (Auto) 0.01 Baso # (Auto) 0.02 POC Sodium Sodium 138 POC Potassium Potassium 4.9 POC Chloride Chloride 107 Carbon Dioxide 20 L POC Total CO2 Anion Gap 11.0 POC Anion Gap POC BUN BUN 32 H Creatinine 1.35 POC Creatinine Est Cr Clr Drug Dosing Not Reportable Est GFR ( Amer) 67.5 Est GFR (Non-Af Amer) 58.3 BUN/Creatinine Ratio 23.6 H Glucose 163 H POC Glucose POC Glucose (other) Calcium 9.5 POC Ioniz Calcium Nabeel Magnesium 1.6 L Total Bilirubin 0.4 AST 18 ALT 45 Alkaline Phosphatase 75 Total Creatine Kinase 29 L Troponin I Total Protein 9.2 H Albumin 3.3 L Globulin 5.9 H Albumin/Globulin Ratio 0.6 L TSH 3.830 Urine Color Urine Appearance Urine pH Ur Specific [place] Urine Protein Urine Glucose (UA) Urine Ketones Urine Blood Urine Nitrite Urine Bilirubin Urine Urobilinogen Ur Leukocyte Esterase Urine WBC (Auto) Urine RBC (Auto) U Hyaline Cast (Auto) U Epithel Cells (Auto) Urine Bacteria (Auto) Hepatitis C Ab Screen Neg 05/14/19 05/14/19 05/15/19 19:10 19:33 05:55 WBC RBC Hgb POC Hgb 11.2 L Hct POC Hct 33 L MCV MCH MCHC RDW Std Deviation RDW Coeff of Mayito Plt Count MPV Immature Gran % (Auto) Neut % (Auto) Lymph % (Auto) King % (Auto) Eos % (Auto) Baso % (Auto) Immature Gran # (Auto) Neut # (Auto) Lymph # (Auto) King # (Auto) Eos # (Auto) Baso # (Auto) POC Sodium 139 Sodium POC Potassium 5.1 H Potassium POC Chloride 107 Chloride Carbon Dioxide POC Total CO2 22 L Anion Gap POC Anion Gap 16.0 POC BUN 39 H BUN Creatinine POC Creatinine 1.2 Est Cr Clr Drug Dosing Est GFR ( Amer) Est GFR (Non-Af Amer) BUN/Creatinine Ratio Glucose POC Glucose 161 H POC Glucose (other) 157 H Calcium POC Ioniz Calcium Nabeel 1.09 L Magnesium Total Bilirubin AST ALT Alkaline Phosphatase Total Creatine Kinase Troponin I Total Protein Albumin Globulin Albumin/Globulin Ratio TSH Urine Color Yellow Urine Appearance Clear Urine pH 5.0 Ur Specific [place] 1.020 Urine Protein Trace H Urine Glucose (UA) Negative Urine Ketones Negative Urine Blood 2+ H Urine Nitrite Negative Urine Bilirubin Negative Urine Urobilinogen Negative Ur Leukocyte Esterase Trace H Urine WBC (Auto) 5-10 H Urine RBC (Auto) 5-10 H U Hyaline Cast (Auto) 1-5 U Epithel Cells (Auto) >30 H Urine Bacteria (Auto) Negative Hepatitis C Ab Screen 05/15/19 05/15/19 05/15/19 06:51 06:51 08:24 WBC 10.29 RBC 3.62 L Hgb 10.5 L POC Hgb Hct 32.7 L POC Hct MCV 90.3 MCH 29.0 MCHC 32.1 RDW Std Deviation 52.3 H RDW Coeff of Mayito 16.1 H Plt Count 276 MPV 9.0 Immature Gran % (Auto) 0.2 Neut % (Auto) 63.9 Lymph % (Auto) 24.9 King % (Auto) 10.4 Eos % (Auto) 0.3 Baso % (Auto) 0.3 Immature Gran # (Auto) 0.02 Neut # (Auto) 6.58 H Lymph # (Auto) 2.56 King # (Auto) 1.07 H Eos # (Auto) 0.03 Baso # (Auto) 0.03 POC Sodium Sodium 140 POC Potassium Potassium 4.5 POC Chloride Chloride 109 H Carbon Dioxide 23 POC Total CO2 Anion Gap 8.0 POC Anion Gap POC BUN BUN 31 H Creatinine 1.34 POC Creatinine Est Cr Clr Drug Dosing 79.8 Est GFR ( Amer) 68.2 Est GFR (Non-Af Amer) 58.8 BUN/Creatinine Ratio 22.8 H Glucose 128 H POC Glucose 147 H POC Glucose (other) Calcium 8.6 POC Ioniz Calcium Nabeel Magnesium Total Bilirubin AST ALT Alkaline Phosphatase Total Creatine Kinase Troponin I Total Protein Albumin Globulin Albumin/Globulin Ratio TSH Urine Color Urine Appearance Urine pH Ur Specific [place] Urine Protein Urine Glucose (UA) Urine Ketones Urine Blood Urine Nitrite Urine Bilirubin Urine Urobilinogen Ur Leukocyte Esterase Urine WBC (Auto) Urine RBC (Auto) U Hyaline Cast (Auto) U Epithel Cells (Auto) Urine Bacteria (Auto) Hepatitis C Ab Screen 05/15/19 05/15/19 05/15/19 08:25 12:02 16:17 WBC RBC Hgb POC Hgb Hct POC Hct MCV MCH MCHC RDW Std Deviation RDW Coeff of Mayito Plt Count MPV Immature Gran % (Auto) Neut % (Auto) Lymph % (Auto) King % (Auto) Eos % (Auto) Baso % (Auto) Immature Gran # (Auto) Neut # (Auto) Lymph # (Auto) King # (Auto) Eos # (Auto) Baso # (Auto) POC Sodium Sodium POC Potassium Potassium POC Chloride Chloride Carbon Dioxide POC Total CO2 Anion Gap POC Anion Gap POC BUN BUN Creatinine POC Creatinine Est Cr Clr Drug Dosing Est GFR ( Amer) Est GFR (Non-Af Amer) BUN/Creatinine Ratio Glucose POC Glucose 116 H 125 H POC Glucose (other) Calcium POC Ioniz Calcium Nabeel Magnesium Total Bilirubin AST ALT Alkaline Phosphatase Total Creatine Kinase Troponin I 0.069 H* Total Protein Albumin Globulin Albumin/Globulin Ratio TSH Urine Color Urine Appearance Urine pH Ur Specific [place] Urine Protein Urine Glucose (UA) Urine Ketones Urine Blood Urine Nitrite Urine Bilirubin Urine Urobilinogen Ur Leukocyte Esterase Urine WBC (Auto) Urine RBC (Auto) U Hyaline Cast (Auto) U Epithel Cells (Auto) Urine Bacteria (Auto) Hepatitis C Ab Screen 05/15/19 05/16/19 05/16/19 21:05 06:01 06:01 WBC 8.37 RBC 3.24 L Hgb 9.3 L POC Hgb Hct 29.4 L POC Hct MCV 90.7 MCH 28.7 MCHC 31.6 L RDW Std Deviation 52.1 H RDW Coeff of Mayito 15.8 H Plt Count 221 MPV 8.7 Immature Gran % (Auto) 0.1 Neut % (Auto) 57.7 Lymph % (Auto) 27.6 King % (Auto) 12.5 Eos % (Auto) 1.7 Baso % (Auto) 0.4 Immature Gran # (Auto) 0.01 Neut # (Auto) 4.83 Lymph # (Auto) 2.31 King # (Auto) 1.05 H Eos # (Auto) 0.14 Baso # (Auto) 0.03 POC Sodium Sodium 142 POC Potassium Potassium 4.3 POC Chloride Chloride 113 H Carbon Dioxide 23 POC Total CO2 Anion Gap 6.0 POC Anion Gap POC BUN BUN 28 H Creatinine 1.25 POC Creatinine Est Cr Clr Drug Dosing 85.9 Est GFR ( Amer) 74.1 Est GFR (Non-Af Amer) 64.0 BUN/Creatinine Ratio 22.1 H Glucose 101 H POC Glucose 105 H POC Glucose (other) Calcium 8.6 POC Ioniz Calcium Nabeel Magnesium Total Bilirubin AST ALT Alkaline Phosphatase Total Creatine Kinase Troponin I Total Protein Albumin Globulin Albumin/Globulin Ratio TSH Urine Color Urine Appearance Urine pH Ur Specific [place] Urine Protein Urine Glucose (UA) Urine Ketones Urine Blood Urine Nitrite Urine Bilirubin Urine Urobilinogen Ur Leukocyte Esterase Urine WBC (Auto) Urine RBC (Auto) U Hyaline Cast (Auto) U Epithel Cells (Auto) Urine Bacteria (Auto) Hepatitis C Ab Screen 05/16/19 07:43 WBC RBC Hgb POC Hgb Hct POC Hct MCV MCH MCHC RDW Std Deviation RDW Coeff of Myaito Plt Count MPV Immature Gran % (Auto) Neut % (Auto) Lymph % (Auto) King % (Auto) Eos % (Auto) Baso % (Auto) Immature Gran # (Auto) Neut # (Auto) Lymph # (Auto) King # (Auto) Eos # (Auto) Baso # (Auto) POC Sodium Sodium POC Potassium Potassium POC Chloride Chloride Carbon Dioxide POC Total CO2 Anion Gap POC Anion Gap POC BUN BUN Creatinine POC Creatinine Est Cr Clr Drug Dosing Est GFR ( Amer) Est GFR (Non-Af Amer) BUN/Creatinine Ratio Glucose POC Glucose 107 H POC Glucose (other) Calcium POC Ioniz Calcium Nabeel Magnesium Total Bilirubin AST ALT Alkaline Phosphatase Total Creatine Kinase Troponin I Total Protein Albumin Globulin Albumin/Globulin Ratio TSH Urine Color Urine Appearance Urine pH Ur Specific [place] Urine Protein Urine Glucose (UA) Urine Ketones Urine Blood Urine Nitrite Urine Bilirubin Urine Urobilinogen Ur Leukocyte Esterase Urine WBC (Auto) Urine RBC (Auto) U Hyaline Cast (Auto) U Epithel Cells (Auto) Urine Bacteria (Auto) Hepatitis C Ab Screen PG Care Time/CCT Total # of Minutes Spent Total Time Spent with Patient: Total time spent is greater than 50% in coordination of care (as documented) at patient's floor/unit and/or counseling patient:
--- NOTE | 2019-05-16 09:56 | XRay Report ---
XR KUB/Abdomen 1 view CLINICAL HISTORY: stones COMPARISON STUDY: CT scan dated 05/14/2019 FINDINGS: There is no pathologic bowel dilatation. Bilateral double pigtail nephroureteral stents are visualized. The distal pigtail on the right is not fully formed. No urinary tract calculi are visual ized. The bladder calculus and 2 large distal left ureteral calculi are not visualized with certainty on this conventional radiographic study. IMPRESSION: 1. Bilateral nephroureteral stents 2. The previously identified ureteral and bladder calculi are not visualized with certainty on this c onventional radiographic study Electronically signed by: Ancelmo Wright M.D. 05/16/2019 9:55 AM
--- NOTE | 2019-05-16 18:00 | Family Medicine Progress Note ---
Date of Service May 16, 2019 Assessment & Plan (1) Lightheadedness: 58 M here with lightheadedness, palpitations with new supplemental O2 requirement and unilateral leg swelling. DVT RLE / mild hypoxia - + on U/S in RLE - started on rivaroxaban Case Management is arranging coupons to be sent to PCP for first year of treatment until insurance is approved to pay for care. Suspect PE as well Obtained echo showing right heart elevated systolic pressure to 40-50 mmHg and borderline dilation of right ventricle Orthostatic hypotension Holding amlodipine and cut metoprolol dose in half. BP's not low but likely low for him. Diverticulitis - incidental finding on CT abd (which was to assess ureteral stents) - cont cipro flagyl, tolerating well Ureteral stents, recent h/o fulminant kidney failure - did req emergent dialysis in [place] on 05/03 for bilateral nephrolithiasis resulting in acute kidney injury with a creatinine of 36 - CT shows reactive urotherlium - seen by Urology here, no acute issues or interventions needed with regard to stents. - follow BMP. FEN/GI: DM2, D/C'd fluids DVT ppx: on rivaraxoban CODE STATUS: FULL DISPO: med/tele Other ongoing medical issues: HTN: holding home amlodipine. Cont home metoprolol. T2DM: ISS here (2) DVT of lower extremity (deep venous thrombosis): (3) Diverticulitis: (4) Palpitations: Supervising Physician Co-Signing Physician Notes I saw the patient the resident physician and confirmed mosley portion of the history and physical exam. Agree with the impression and plan as noted above. Upon examination, the patient is seated in his bed. Denies abdominal pain, chest pain, and dyspnea. His only complaint is being lightheaded, which worsens with standing and activity. Hypertension -amlodipine has been held. Recommend decreasing metoprolol dose with hold parameters. VTE -first event that he is aware of, could be provoked and related to prior hospitalization. He will need anticoagulation for 3 to 6 months. Recommend usual cancer screenings -colonoscopy, PSA. Continue rivaroxaban. Diverticulitis -continue antibiotics DVT with likely PE - start rivaroxaban Subjective Patient continuing to have lightheadedness with change in position. He otherwise feels well, is saturating well on room air, and has no acute complaints. He notices the lightheadedness on standing and denies heart palpitations or syncope. Review of Systems Review of Systems: All systems reviewed & are unremarkable except as noted in HPI & below Physical Exam Constitutional: well developed, well nourished, + disheveled, cooperative and comfortable; no acute distress Eyes: PERRL, conjunctivae normal, anicteric sclerae Respiratory: normal respiratory effort; no respiratory distress Auscultation: lungs clear to auscultation bilaterally; no crackles, no rales, no rhonchi and no wheezes Cardiovascular: Rate/Rhythm: regular rate and regular rhythm Heart Sounds: no click, no gallop, no murmur and no cardiac rub Extremities: no calf tenderness Gastrointestinal (Abdomen): Inspection/Auscultation: abdomen normal to inspection; abdomen not distended Percussion/Palpation: abdomen soft; abdomen nontender Skin: no rashes, warm and dry Neurologic: patellar DTR's 2+ bilat, sensation intact and PERRL, EOMI, accommodation nl, no face palsy, no dysarthria Results & Data Vital Signs (Past 12 Hours) Vital Signs Temp Pulse Pulse Resp BP BP Pulse Ox 05/16/19 15:50 36.6 C 80 18 103/71 90 05/16/19 15:02 80 05/16/19 11:22 36.7 C 84 20 107/74 95 05/16/19 07:28 36.5 C 78 20 117/80 93 PG Care Time/CCT Total # of Minutes Spent Total Time Spent with Patient: Total time spent is greater than 50% in coordination of care (as documented) at patient's floor/unit and/or counseling patient: Resident Activity Tracking Resident Involvement: Resident Care Provided Care Provided: Adult Hospital Medicine
[2019-05-16] MEDS: METOPROLOL TARTRATE 25 MG TAB PO SCH (20:31)
[2019-05-17] MEDS: CIPROFLOXACIN 400 MG/200 ML BAG IV SCH (01:54)
[2019-05-17 06:14] LABS: Basophils # (auto) 0.02 K/uL (0-0.2); Basophils % (auto) 0.3 %; Eosinophils # (auto) 0.19 K/uL (0-0.5); Eosinophils % (auto) 2.6 %; Hematocrit (blood only) 30.4 % (42-52); Hemoglobin 9.4 g/dL (14.0-18.0); Immature Granulocytes # (auto) 0.02 K/uL (0.00-0.02); Immature Granulocytes % (auto) 0.3 %; Lymphocytes # (auto) 1.97 K/uL (1.2-3.4); Lymphocytes % (auto) 27.1 %; Mean Corpuscular Hgb Conc 30.9 g/dL (32-36); Mean Corpuscular Volume 90.7 fL (80-100); Mean Platelet Volume 8.6 fL (7.4-10.4); Monocytes # (auto) 0.96 K/uL (0.11-0.59); Monocytes % (auto) 13.2 %; Neutrophils # (auto) 4.12 K/uL (1.4-6.5); Neutrophils % (auto) 56.5 %; Platelet Count 249 K/uL (130-400); RDW Coefficient of Variation 15.9 % (11.5-14.5); RDW Standard Deviation 52.1 fL (36.4-46.3); Red Blood Count 3.35 M/uL (4.7-6.1); White Blood Count 7.28 K/uL (4.8-10.8)
[2019-05-17 06:35] LABS: Calcium 8.4 mg/dl (8.5-10.1); Est GFR (African American) 79.5; Est GFR (Non-African American) 68.6; Potassium 3.8 mmol/L (3.5-5.1)
[2019-05-17] MEDS: INSULIN ASPART 100 UNITS/ML 3 ML PEN SC SCH ×4 (08:03→20:42)
[2019-05-17] MEDS: metroNIDAZOLE 500 MG/100 ML BAG IV SCH (08:03)
[2019-05-17] MEDS: FOLIC ACID 1 MG TAB PO SCH (08:05)
[2019-05-17] MEDS: RIVAROXABAN 15 MG TAB PO SCH ×2 (08:05→20:56)
[2019-05-17] MEDS: METOPROLOL TARTRATE 25 MG TAB PO SCH (08:05)
[2019-05-17] MEDS: FERROUS SULFATE 325 MG TAB PO SCH (08:05)
--- NOTE | 2019-05-17 10:43 | Urology Progress Note ---
Date of Service May 17, 2019 Assessment & Plan (1) Bilateral nephrolithiasis: Bilateral ureteral stents Anticoagulation for DVT No hematuria now Discussed that this may occur as he continues ambulation and increase his activity levels Plan for outpatient follow-up to definitively treat his obstruction and remove stents Subjective Subjectively the patient reports he feels well No hematuria No flank pain No dysuria Feels he is emptying his bladder completely Awaiting cardiac evaluation Physical Exam Constitutional: well developed and well nourished Respiratory: no respiratory distress Cardiovascular: Extremities: no pedal edema Gastrointestinal (Abdomen): Inspection/Auscultation: abdomen normal to inspection Results & Data Vital Signs (Past 12 Hours) Vital Signs Temp Pulse Pulse Resp BP BP Pulse Ox 05/17/19 08:47 66 05/17/19 07:43 36.7 C 81 18 103/72 94 05/17/19 03:56 36.5 C 78 18 116/74 91 05/16/19 23:25 36.6 C 81 18 110/73 91 05/16/19 23:16 79 PG Care Time/CCT Total # of Minutes Spent Total Time Spent with Patient: Total time spent is greater than 50% in coordination of care (as documented) at patient's floor/unit and/or counseling patient:
--- NOTE | 2019-05-17 13:21 | Family Medicine Progress Note ---
Date of Service May 17, 2019 Assessment & Plan (1) Lightheadedness: 58 M here with lightheadedness, palpitations with new supplemental O2 requirement and unilateral leg swelling. History of type 2 diabetes, hypertension. DVT RLE / mild hypoxia, provoked - + on U/S in RLE Started on Xarelto 15 mg twice daily for 21 days. And then 20 mg daily thereafter Would consider this a provoked DVT, status post hospitalization last week for 7 days, no prior history of DVT or PE, no family history. Recommend treatment for 3 to 6 months, defer to PCP Case Management is arranging coupons to be sent to PCP for first year of treatment until insurance is approved to pay for care. Consider PE as wellpatient is hemodynamically stable Echo showing right heart elevated systolic pressure to 40-50 mmHg and borderline dilation of right ventricle Orthostatic hypotension Likely contributing presenting symptoms of lightheadedness, fatigue DC metoprolol, continue with amlodipine 5 mg Type 2 diabetes Continue insulin sliding scale Diverticulitis - incidental finding on CT abd (which was to assess ureteral stents) -Transition to p.o. Cipro/Flagyl Ureteral stents, recent h/o fulminant kidney failure - did req emergent dialysis in [place] on 05/03 for bilateral nephrolithiasis resulting in acute kidney injury with a creatinine of 36 - CT shows reactive urotherlium - seen by Urology here, no acute issues or interventions needed with regard to stents. - follow BMP. FEN/GI: DM2, D/C'd fluids DVT ppx: on rivaraxoban CODE STATUS: FULL DISPO: med/tele (2) DVT of lower extremity (deep venous thrombosis): (3) Diverticulitis: (4) Palpitations: Supervising Physician Co-Signing Physician Notes I saw the patient the resident physician and confirmed mosley portion of the history and physical exam. Agree with the impression and plan as noted above. Hypertension -hold beta-shanti as this is the more likely culprit in his orthostasis; restart low-dose amlodipine. VTE -first event that he is aware of, could be provoked and related to prior hospitalization. He will need anticoagulation for 3 to 6 months. Recommend usual cancer screenings -colonoscopy, PSA. Continue rivaroxaban. Diverticulitis -continue antibiotics; convert to oral. Subjective Doing well, no acute complaints, no SOB, no CP, ab pain, no n/v/d. Would like to get up and take a shower. Review of Systems Review of Systems: All systems reviewed & are unremarkable except as noted in HPI & below Physical Exam Constitutional: WD/WN, vitals as above Eyes: PERRL, conjunctivae normal, anicteric sclerae ENMT: external ear and nose normal, oropharynx normal Neck: trachea midline, no thyromegaly Respiratory: normal respiratory effort, lungs clear to auscultation Cardiovascular: RRR, no murmur, no edema Gastrointestinal (Abdomen): normal bowel sounds, soft, nontender, no hepatosplenomegaly Musculoskeletal: no cyanosis or clubbing, extremities motor strength 5/5 edema right lower extremity>left lower extremity Skin: no rashes, warm and dry Neurologic: patellar DTR's 2+ bilat, sensation intact Psychiatric: A+Ox3, euthymic affect Results & Data Vital Signs (Past 12 Hours) Vital Signs Temp Pulse Pulse Resp BP BP Pulse Ox 05/17/19 08:47 66 05/17/19 07:43 36.7 C 81 18 103/72 94 05/17/19 03:56 36.5 C 78 18 116/74 91 PG Care Time/CCT Total # of Minutes Spent Total Time Spent with Patient: Total time spent is greater than 50% in coordination of care (as documented) at patient's floor/unit and/or counseling patient: Resident Activity Tracking Resident Involvement: Resident Care Provided Care Provided: Adult Hospital Medicine
[2019-05-17] MEDS: CIPROFLOXACIN 500 MG TAB PO SCH ×2 (13:35→20:57)
[2019-05-17] MEDS: metroNIDAZOLE 500 MG TAB PO SCH ×2 (13:35→20:57)
[2019-05-18] MEDS: INSULIN ASPART 100 UNITS/ML 3 ML PEN SC SCH ×4 (08:33→20:23)
[2019-05-18] MEDS: FERROUS SULFATE 325 MG TAB PO SCH (08:35)
[2019-05-18] MEDS: FOLIC ACID 1 MG TAB PO SCH (08:35)
[2019-05-18] MEDS: metroNIDAZOLE 500 MG TAB PO SCH ×3 (08:35→20:23)
[2019-05-18] MEDS: CIPROFLOXACIN 500 MG TAB PO SCH ×2 (08:35→20:23)
[2019-05-18] MEDS: RIVAROXABAN 15 MG TAB PO SCH ×2 (08:36→20:23)
[2019-05-18] MEDS ORDERED: AMLODIPINE BESYLATE 5 MG TAB PO SCH (09:00)
[2019-05-18] MEDS ORDERED: dilTIAZem HCL 30 MG TAB PO ONE ×2 (12:30→16:54)
--- NOTE | 2019-05-18 12:31 | Family Medicine Progress Note ---
Date of Service May 18, 2019 Assessment & Plan (1) DVT of lower extremity (deep venous thrombosis): 58 M here with lightheadedness, palpitations with new supplemental O2 requirement and unilateral leg swelling. History of type 2 diabetes, hypertension. DVT RLE / mild hypoxia, provoked - + on U/S in RLE Started on Xarelto 15 mg twice daily for 21 days. And then 20 mg daily thereafter Would consider this a provoked DVT, status post hospitalization last week for 7 days, no prior history of DVT or PE, no family history. Recommend treatment for 3 to 6 months, defer to PCP Case Management is arranging coupons to be sent to PCP for first year of treatm ent until insurance is approved to pay for care. Consider PE as wellpatient is hemodynamically stable Echo showing right heart elevated systolic pressure to 40-50 mmHg and borderline dilation of right ventricle Atrial fibrillation with RVR Diagnosed during ambulatory pulse ox--could explain his presenting symptoms of lightheadedness Concern and context of possible PE, discussed with cardiology, will attempt rate control, patient is already anticoagulated Currently stable, consider cardiology consult if things change Patient was previously on a shanti. We stopped the beta-shanti because of orthostatic hypotension and potential contributing Type 2 diabetes Continue insulin sliding scale Diverticulitis - incidental finding on CT abd (which was to assess ureteral stents) -Transition to p.o. Cipro/Flagyl Ureteral stents, recent h/o fulminant kidney failure - did req emergent dialysis in [place] on 05/03 for bilateral nephrolithiasis resulting in acute kidney injury with a creatinine of 36 - CT shows reactive urotherlium - seen by Urology here, no acute issues or interventions needed with regard to stents. - follow BMP. FEN/GI: DM2, D/C'd fluids DVT ppx: on rivaraxoban CODE STATUS: FULL DISPO: med/tele (2) Bilateral nephrolithiasis: (3) Hypertension: (4) Diabetes mellitus: (5) Diverticulitis: (6) Palpitations: (7) Lightheadedness: (8) Atrial fibrillation with RVR: Supervising Physician Co-Signing Physician Notes I saw the patient the resident physician and confirmed mosley portion of the history and physical exam. Agree with the impression and plan as noted above. The patient still notes episodes of lightheadedness and dizziness. Initial thought was he may be having some desaturation during exercise, and when he had his two-step his oxygen remained good but he went into rapid atrial fibrillation. It is not clear if this was causing his symptoms initially as there was no mention of atrial fibrillation this admission (he has been on telemetry). Atrial fibrillation with rapid ventricular response -he was on a beta-shanti previously but had difficulties with orthostatic hypotension, thus agree with addition of calcium channel shanti. For the most part, he is asymptomatic with regards to his atrial fibrillation and given the recent DVT, he is very on therapeutic anticoagulation. VTE -first event that he is aware of, could be provoked and related to prior hospitalization. He will need anticoagulation for 3 to 6 months. Recommend usual cancer screenings -colonoscopy, PSA. Continue rivaroxaban. He may need this longer with his recent diagnosis of atrial fibrillation Diverticulitis -essentially asymptomatic; complete 10-day course of antibiotics Subjective Patient states that he gets short of breath especially with ambulation. Denies any chest pain or heart palpitations. Review of Systems Review of Systems: All systems reviewed & are unremarkable except as noted in HPI & below Physical Exam Constitutional: WD/WN, vitals as above Eyes: PERRL, conjunctivae normal, anicteric sclerae ENMT: external ear and nose normal, oropharynx normal Neck: trachea midline, no thyromegaly Respiratory: normal respiratory effort, lungs clear to auscultation Cardiovascular: Rate/Rhythm: + irregularly irregular Gastrointestinal (Abdomen): normal bowel sounds, soft, nontender, no he patosplenomegaly Musculoskeletal: right LE>Left LE, no erythema, no calf tenderness Skin: no rashes, warm and dry Psychiatric: A+Ox3, euthymic affect Results & Data Vital Signs (Past 12 Hours) Vital Signs Temp Pulse Pulse Pulse Pulse Pulse Resp 05/18/19 11:35 95 H 96 H 82 05/18/19 08:01 36.7 C 85 20 05/18/19 08:00 76 05/18/19 04:03 36.4 C L 82 20 Resp Resp Resp BP BP Pulse Ox Pulse Ox 05/18/19 11:35 24 22 18 96 05/18/19 08:01 125/86 94 05/18/19 08:00 05/18/19 04:03 113/72 91 Pulse Ox Pulse Ox 05/18/19 11:35 98 97 05/18/19 08:01 05/18/19 08:00 05/18/19 04:03 PG Care Time/CCT Total # of Minutes Spent Total Time Spent with Patient: Total time spent is greater than 50% in coordination of care (as documented) at patient's floor/unit and/or counseling patient: Resident Activity Tracking Resident Involvement: Resident Care Provided Care Provided: Adult Hospital Medicine
[2019-05-18 12:53] LABS: BUN Creatinine Ratio 18.8 (10-20); Creatinine Clr Calc Pharmacy 86.7 ml/min; Est GFR (African American) 76.3; Est GFR (Non-African American) 65.9; Magnesium 1.8 mg/dl (1.8-2.4); Potassium 3.9 mmol/L (3.5-5.1)
[2019-05-19 06:24] LABS: Basophils # (auto) 0.07 K/uL (0-0.2); Eosinophils # (auto) 0.21 K/uL (0-0.5); Hematocrit (blood only) 36.8 % (42-52); Hemoglobin 11.8 g/dL (14.0-18.0); Immature Granulocytes # (auto) 0.03 K/uL (0.00-0.02); Immature Granulocytes % (auto) 0.4 %; Lymphocytes # (auto) 1.98 K/uL (1.2-3.4); Lymphocytes % (auto) 28.6 %; Mean Corpuscular Hgb Conc 32.1 g/dL (32-36); Mean Corpuscular Volume 90.2 fL (80-100); Mean Platelet Volume 8.6 fL (7.4-10.4); Monocytes # (auto) 0.84 K/uL (0.11-0.59); Monocytes % (auto) 12.1 %; Neutrophils % (auto) 54.9 %; Platelet Count 278 K/uL (130-400); RDW Standard Deviation 51.1 fL (36.4-46.3); Red Blood Count 4.08 M/uL (4.7-6.1); White Blood Count 6.93 K/uL (4.8-10.8)
[2019-05-19 06:59] LABS: BUN Creatinine Ratio 17.2 (10-20); Creatinine Clr Calc Pharmacy 81.2 ml/min; Est GFR (Non-African American) 60.4; Potassium 4.1 mmol/L (3.5-5.1)
[2019-05-19] MEDS: RIVAROXABAN 15 MG TAB PO SCH ×2 (08:45→21:16)
[2019-05-19] MEDS: CIPROFLOXACIN 500 MG TAB PO SCH ×2 (08:45→21:16)
[2019-05-19] MEDS: FOLIC ACID 1 MG TAB PO SCH (08:45)
[2019-05-19] MEDS: metroNIDAZOLE 500 MG TAB PO SCH ×3 (08:45→21:16)
[2019-05-19] MEDS: FERROUS SULFATE 325 MG TAB PO SCH (08:45)
[2019-05-19] MEDS: INSULIN ASPART 100 UNITS/ML 3 ML PEN SC SCH ×4 (08:46→21:31)
--- NOTE | 2019-05-19 13:45 | Discharge Summary ---
Date of Service May 20, 2019 Admission HPI Per Admitting Provider Mr. Dorsey is a 58-year-old male with a past medical history of hypertension, diabetes mellitus, recent admission to [facility] for acute kidney injury secondary to bilateral nephrolithiasis, requiring emergent dialysis and bilateral ureteral stents who presents to the emergency department due to a 4-day history of lightheadedness. The patient states that he was started on several medications in [place], including 2 blood pressure medications. He states that after he started taking his medications 5 days ago, he began to feel lightheaded with standing. He denies any overt dizziness. He states that he is does not have any symptoms when lying down, however has a hard time walking due to severe lightheadedness, resulting in him feeling like he may pass out. He also endorses a long time history of a rapid heart rate, and states he feels like he "breathes heavier than regular people." He denies any history of chest pain, or prior history of [place]. 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 He denies any fever, chills, nausea, vomiting, or diarrhea. He states that he has been eating and drinking well. He has follow-up appointments arranged with a new primary care provider, and urologist, to establish care and follow-up from his recent discharge. Past medical history: HTN, Diabetes Mellitus, b/l nephrolithiasis Past surgical history: b/l ureteral stent placement Medications: Amlodipine, ferrous sulfate, folic acid, metformin, metoprolol, potassium chloride Allergies: No known drug allergies Social Hx: Quit smoking 25 years ago, chews tobacco daily. No recent alcohol or recreational drug use. Admission Exam Per Admitting Provider Constitutional: WD/WN, vitals as above + disheveled, cooperative and comfortable Eyes: PERRL, conjunctivae normal, anicteric sclerae ENMT: external ear and nose normal, oropharynx normal Mouth: + poor dentition and + chipped teeth Respiratory: normal respiratory effort, lungs clear to auscultation Cardiovascular: Rate/Rhythm: regular rhythm and + tachycardic Extremities: no calf tenderness and no pedal edema Gastrointestinal (Abdomen): Percussion/Palpation: + abdomen tender (tender i n LLQ) and abdomen soft; no guarding and abdomen not rigid Musculoskeletal: no cyanosis or clubbing, extremities motor strength 5/5 Skin: no rashes, warm and dry Neurologic: patellar DTR's 2+ bilat, sensation intact and PERRL, EOMI, accommodation nl, no face palsy, no dysarthria Psychiatric: A+Ox3, euthymic affect Principal Diagnosis Right lower extremity DVT, diverticulitis, pAFib Discharge Exam Constitutional WD/WN, vitals as above Eyes PERRL, conjunctivae normal, anicteric sclerae ENMT external ear and nose normal, oropharynx normal Neck trachea midline, no thyromegaly Respiratory normal respiratory effort, lungs clear to auscultation Cardiovascular RRR, no murmur, no edema Gastrointestinal (Abdomen) normal bowel sounds, soft, nontender, no hepatosplenomegaly Musculoskeletal no cyanosis or clubbing, extremities motor strength 5/5 Skin no rashes, warm and dry Neurologic PERRL, EOMI, accommodation nl, no face palsy, no dysarthria Psychiatric A+Ox3, euthymic affect Discharge Data Allergies Allergy/AdvReac Type Severity Reaction Status Date / Time No Known Allergies Allergy Unverified 05/14/19 20:13 Consultations 05/14/19 20:42 ED Decision to Admit Stat 05/14/19 23:14 Consult Urology Routine Ordered Studies [facility] [address], [place] [phone] XRay Report Patient: Monse DORSEY Date: 05/14/19 MR#: [id number]: [address] Acct ID:[id number]: [facility] Zip[facility] [place] [address] Age: 58Location: 2W Sex: M Room/Bed: [facility] Att Phy: Duong Allen D.O.Diagnosis: DIVERTICULITIS, LIGHTHEADEDNESS, PALPITATIONS Mary Ann Phy: PCP,NOService Date: 05/16/19 Fam Phy:Interpreting Phy: Ancelmo Wright MD Admit Phy: Claudia Naik MD Ordering Phy: Femi Rice MD, Urology cc: ~ XR KUB/Abdomen 1 view CLINICAL HISTORY: stones COMPARISON STUDY: CT scan dated 05/14/2019 FINDINGS: There is no pathologic bowel dilatation. Bilateral double pigtail nephroureteral stents are visualized. The distal pigtail on the right is not fully formed. No urinary tract calculi are visualized. The bladder calculus and 2 large distal left ureteral calculi are not visualized with certainty on this conventional radiographic study. IMPRESSION: 1. Bilateral nephroureteral stents 2. The previously identified ureteral and bladder calculi are not visualized with certainty on this conventional radiographic study Electronically signed by: Ancelmo Wright M.D. 05/16/2019 9:55 AM Dictated: 05/16/19 0953 Transcribed: 05/16/19 0953 05/14/19 19:15 CT abd pelvis wo con [place], [place] [phone] Ultrasound Report Patient: Monse DORSEY Date: 05/14/19 MR#: [id number]: [address] Acct ID:[id number]: Date: [address] [place] [address] Zip: [place] [address] Age: 58Location: 2W Sex: M Room/Bed: [facility] Att Phy: Cecil Doss, MDDiagnosis: DIVERTICULITIS, LIGHTHEADEDNESS, PALPITATIONS Mary Ann Phy: PCP,NOService Date: 05/15/19 Fam Phy:Interpreting Phy: Lauri Ramsey MD Admit Phy: Claudia Naik MD Ordering Phy: Antonia Beasley MD cc: ~ ULTRASOUND RIGHT LOWER EXTREMITY VENOUS CLINICAL HISTORY: Right leg swelling. COMPARISON STUDY: No priors. TECHNIQUE: Real-time, grayscale, and color Doppler sonography of the deep veins of the right lower extremity was performed from the inguinal crease to the calf. Compression and augmentation were utilized. FINDINGS: There is occlusive deep venous thrombosis identified in the popliteal vein. This extends into the calf within the posterior tibial and peroneal veins. The common femoral and superficial femoral veins are patent and normally compressible. The greater saphenous vein and the profunda femoris vein at the junction with the common femoral vein are clear. IMPRESSION: There is occlusive deep venous thrombosis identified in the popliteal vein which extends into the calf. See above. Electronically signed by: Lauri Ramsey M.D. 05/15/2019 3:41 PM Dictated: 05/15/19 1540 Transcribed: 05/15/19 1540 [place], [place] [phone] CT Scan Report Patient: Monse DORSEY Date: 05/14/19 MR#: [id number]: [address] Acct ID:[id number]: Date: [address] [place] [address] Zip: [place] [address] Age: 58Location: ED Sex: M Room/Bed: Att Phy:Diagnosis: POSSIBLE ALLERGIC REACTION TO MEDICATIONS Mary Ann Phy: PCP,NOService Date: 05/14/19 Fam Phy:Interpreting Phy: Stanley Lopez MD Admit Phy: Ordering Phy: Curtis Jamison MD cc: ~ CT head/brain wo con CLINICAL HISTORY: 58 years-old Male presenting with Pt c/o dizziness. TECHNIQUE: Multidetector CT imaging of the head was performed without the use of intravenous contrast. IV contrast: None. One or more dose lowering techniques were used consistent with the principles of ALARA (as low as reasonably achievable), including automatic exposure control, mA or kV adjustment to individual patient size, and/or use of iterative reconstruction. COMPARISON: None. CT DOSE (mGy.cm): The estimated cumulative dose is 537.48 mGy.cm. 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 Ventricles and sulci normal in size. No hemorrhage. Brain parenchyma normal in appearance with preserved zaldivar-white differentiation. No acute territorial infarct. No mass effect or midline shift. No extra-axial fluid collection. Paranasal sinuses and mastoid air cells clear. Calvarium intact. IMPRESSION: 1. No acute intracranial abnormality. Electronically signed by: Stanley Lopez M.D. 05/14/2019 7:56 PM Dictated: 05/14/191953 Transcribed: 05/14/191953 [facility] [address], [place] [phone] CT Scan Report Patient: Monse DORSEY Date: 05/14/19 MR#: [id number]: [address] Acct ID:[id number]: Date: [address] [place] [address] Zip: [place] [address] Age: 58Location: ED Sex: M Room/Bed: Att Phy:Diagnosis: POSSIBLE ALLERGIC REACTION TO MEDICATIONS Mary Ann Phy: PCP,NOService Date: 05/14/19 [facility] Phy:Interpreting Phy: Stanley Lopez MD Admit Phy: Ordering Phy: Curtis Jamison MD cc: ~ ADDENDUM Additional impression: 8. Nodular subcutaneous fat infiltration in the right chest wall. This is indeterminate. Correlate with physical exam. It is not known if this is associated with the right breast as the right nipple was not included within the [id number]. Electronically signed by: Stanley Lopez M.D. 05/14/2019 8:[address] abd pelvis wo con CLINICAL HISTORY: 58 years-old Male presenting with ureteral stents, back pain. TECHNIQUE: Multidetector CT of the abdomen and pelvis was performed without the use of intravenous contrast. IV contrast: None. One or more dose lowering techniques were used consistent with the principles of ALARA (as low as reasonably achievable), including automatic exposure control, mA or kV adjustment to individual patient size, and/or use of iterative reconstruction. COMPARISON: None. CT DOSE (mGy.cm): The estimated cumulative dose is 1468.87 mGy.cm. 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 Lung bases: Multichamber enlargement of the heart. Coronary artery calcification. No pericardial or pleural effusion. No focal infiltrate or nodule at the lung bases. Liver: Normal morphology. Normal density. Biliary: No gross biliary ductal dilatation allowing for noncontrast technique. Gallbladder contains gallstones. Pancreas: Normal noncontrast appearance. Spleen: Normal noncontrast appearance. Adrenal glands: Normal noncontrast appearance. Kidneys and ureters: Bilateral moderate perinephric fat infiltration. No right hydronephrosis. Mild to moderate left pelvocaliectasis with distention of the left ureter to the level of 2 adjacent large calculi measuring 20 mm and 16 mm in the mid to distal left ureter. The right ureter is nondistended though there is a 7 mm calculus in the proximal right ureter. Bilateral urothelial thickening evident with bilateral ureteral stents in place. Bladder: 11 mm bladder calculus. Mild circumferential bladder wall thickening. Pelvic organs: Prostate enlargement likely secondary to benign prostatic hyperplasia. Bowel: Diverticulosis of the proximal to mid sigmoid colon and minimally in the distal descending colon. Focal wall thickening and trace pericolonic fat infiltration and peritoneal thickening in the left lower quadrant. The appendix is normal. No bowel obstruction. Peritoneal cavity: No extraluminal gas or fluid collection in the left lower quadrant adjacent to the inflamed sigmoid colon. No free intraperitoneal fluid or gas. Lymph nodes: No gross lymphadenopathy allowing for noncontrast technique. Vasculature: Atherosclerosis of the normal caliber abdominal aorta. Abdominal wall: Nodular infiltration in the subcutaneous tissue of the right chest wall (series 3 image 51). Musculoskeletal: Degenerative changes of the spine. IMPRESSION: 1. Acute uncomplicated diverticulitis in the proximal to mid sigmoid colon in the left lower quadrant. No abscess or extraluminal gas. 2. Left pelvocaliectasis and distention of the left ureter raises concern for hydroureteronephrosis despite the presence of the left ureteral stent. 3. 2 adjacent large mid to distal left ureteral calculi may be resulting in obstruction or partial obstruction. 4. Subcentimeter proximal right ureteral calculus. Right ureteral stent. No right hydronephrosis. 5. Urothelial thickening bilaterally may be reactive to the presence of the stents. Correlate with urinalysis to exclude superinfection. 6. Prostatomegaly with suspected chronic bladder outlet obstruction. 7. Cholelithiasis. Electronically signed by: Stanley Lopez M.D. 05/14/2019 8:05 PM Dictated: 05/14/191957 Transcribed: 05/14/191957 CT head/brain wo con Stat 05/15/19 10:50 US venous doppler LE RT Routine Echocardiogram performed on 05/16/2019. Interpretation showsmild concentric left ventricular hypertrophy, left ventricular systolic function is normal, grade 1 diastolic dysfunction, there is septal dyskinsis, the right ventricle is borderline dilated, the right ventricle systolic pressure is elevated at 40 to 50 mmHg Hospital Course (1) DVT of lower extremity (deep venous thrombosis): 58 M history of hypertension, diabetes, recent admission for fulminant kidney failure secondary to obstructive uropathy presents with nonspecific symptoms including lightheadedness, fatigue. Upon work-up, the patient was found to have a number of incidental findings including DVT, diverticulitis and paroxysmal atrial fibrillation. DVT RLE / mild hypoxia, provoked Started on Xarelto 15 mg twice daily for 21 days. And then 20 mg daily thereafter Continue anticoagulation indefinitely considering comorbid paroxysmal atrial fibrillation Would consider this a provoked DVT, status post hospitalization last week for 7 days, no prior history of DVT or PE, no family history. Case Management is arranging coupons to be sent to PCP for first year of treatment until insurance is approved to pay for care. Echo showing right heart elevated systolic pressure to 40-50 mmHg and borderline dilation of right ventricle Considered PE based on ECHO results no indication for CTA considering initiation of anticoagulation and overall stability. In addition, patient recent hospitalization for fulminant kidney failure secondary to obstructive uropathy--wanted to avoid contrast Atrial fibrillation with RVR, rapid rhythm resolved Diagnosed during ambulatory pulse ox--could help explain his presenting symptoms of lightheadedness Continue rate control, patient is already anticoagulated Regular rate and rhythm at the time of discharge Type 2 diabetes Continue home metformin Diverticulitis - incidental finding on CT abd (which was to assess ureteral stents) -Continue 4 more days of Cipro/Flagyl Ureteral stents, recent h/o fulminant kidney failure - did req emergent dialysis in [place] on 05/03 for bilateral nephrolithiasis resulting in acute kidney injury with a creatinine of 36 - CT shows reactive urotherlium - seen by Urology here, no acute issues or interventions needed with regard to stents. - follow BMP. (2) Bilateral nephrolithiasis: (3) Hypertension: (4) Diabetes mellitus: (5) Diverticulitis: (6) Palpitations: (7) Atrial fibrillation with RVR: Total Time Total Time Spent Total Time Spent (In Minutes): Less than 30 minutes Total Time Includes: Examination of the Patient, Discharge Planning, Medication Reconciliation and Communication With Other Providers Discharge Plan Discharge Items Patient Disposition: Home - Self-Care Reason For Visit: DIVERTICULITIS, LIGHTHEADEDNESS, PALPITATIONS Discharge Diagnosis: Diverticulitis, DVT, Atrial Fibrillation with RVR Condition on Discharge: Good Activity: As commented below Bathing: No limitations Non-emergency contact: Primary Care Provider and Urologist Call non-emergency contact if: you have any medication questions and your symptoms worsen Follow-up/Referrals: Irina Maldonado MD [Physician] - 05/22/19 2:00 pm (Please, follow up at [facility] with Dr. Maldonado on May 22 at 2:15 pm (arrive 2:00 pm). *If you have any questions, call the office at [phone].) Diet: Carb Consistent or DM2 and Heart Healthy Addtl Attending Provider Instructions: You came to the hospital with fatigue, lightheadedness. You were found in the hospital to have diverticulitis and DVT and then developed an irregular heart rhythm called 'atrial fibrillation'. You are being discharged with treatment for all three. Please follow the below recommendations: #1 Continue to take the antibiotic for 4 more days, Flagyl 500mg three times a days, Ciprofloxacin 500mg twice daily. This is the treatment for the diverticulitis. #2 Continue to take the blood thinner for the blood clot in your leg. Our case making machine operator are helping arrange this medication for you. You will need to take 15 mg twice daily for the next 17 days. You will then need to be switched to 20mg once daily thereafter. Please follow up with your primary care doctor for continued treatment. This is also treatment to prevent a clot developing in the heart given your atrial fibrillation, so very likely you will need to continue this medication daily indefinitely. #3 While your fatigue and lightheadedness may be related to your recent hospitalizations and intestinal infection (diverticulitis), we are also concerned that the symptoms are secondary to your blood pressure medication. We recommend that you stop your amlodipine. We recommend that you continue metoprolol for blood pressure control and to treat your atrial fibrillation. Pending Studies at Discharge: No Stand-Alone Forms: My [facility] Medications and DC Order Prescriptions: New Xarelto 15 mg Tablet 15 mg PO BID 18 Days Qty: 36 RF: 0 ciprofloxacin HCl 500 mg tablet 500 mg PO BID 4 Days Qty: 8 RF: 0 metronidazole [Flagyl] 500 mg tablet 500 mg PO TID 4 Days Qty: 12 RF: 0 metoprolol succinate 25 mg Tablet Extended Release 24 Hr 12.5 mg PO DAILY 30 Days Qty: 15 RF: 0 Continued ferrous sulfate 325 mg (65 mg iron) tablet 325 mg PO DAILY RF: 0 folic acid 1 mg tablet 1 mg PO DAILY RF: 0 metformin 500 mg tablet 500 mg PO BID RF: 0 potassium chloride 20 mEq tablet extended release 20 meq PO DAILY RF: 0 Discontinued amlodipine 2.5 mg tablet 2.5 mg PO DAILY RF: 0 metoprolol tartrate [Lopressor] 50 mg tablet 50 mg PO BID RF: 0 Discharge Orders: Discharge Order (Routine); Ordered 05/20/19 Ordered By: Antonia Owens/Other Patient Handouts: DVT, AFL/Afib, Diverticulitis Dc Admission Data Admit Date/Time: 05/14/19 21:35 Attending Provider: Mariusz Moreno Admit Provider: Claudia Naik Primary Care Provider: PCP,NO Other Providers: Nirav Ca ; Femi Rice I. ; Antonia Beasley ; Duong Allen Other Interventions: Discharge Summary Assessment (RN) Last Done: 05/20/19 13:44 DC Date/Time DO NOT enter until pt leaves facility: 05/20/19 16:00 Supervising Physician Co-Signing Physician Notes I personally examined the patient and verified all mosley points of history and exam, discussed case, and agree with decision making with Dr Beasley. Feeling better. Still a little bit lightheaded, but far better than before. We took a walk around the hallway and he did well walking the entire length of the hallway, with his pulse ox staying 94% or greater on room air, he was conversational the whole time. Answered all questions the best my ability. Vitals noted, in general he is awake and alert pleasant no distress. HEENT normocephalic atraumatic mucous members moist. Breathing unlabored no accessory muscle use good effort. Skin shows no rashes no pallor or icterus. He has no conversational dyspnea even when walking, he does breathe a little bit heavy, but notes this is actually his normal. His gait is steady, somewhat slow but no loss of balance. New onset atrial fibrillationrate controlled, we discussed sending home on medication versus monitoring, and given that he was lightheaded possibly somewhat as a side effect of blood pressure medications, for now will use low dose metoprolol and have close f/u. Anticoagulated with Xarelto DVThigh suspicion for PE as well. 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 Given that he had a DVT, he would need it anticoagulated regardless, his symptoms and new onset A. fib certainly would fit with having had a PE. He needs anticoagulated indefinitely for the atrial fibrillation, continue Xarelto for DVT presumed PE as well. Stable for discharge to home, close follow-up as above Resident Activity Tracking Resident Involvement: Resident Care Provided Care Provided: Adult Hospital Medicine
--- NOTE | 2019-05-19 18:20 | Family Medicine Progress Note ---
Date of Service May 19, 2019 Assessment & Plan (1) DVT of lower extremity (deep venous thrombosis): 58M here with lightheadedness/palpitations found to have DVT in RLE with evidence of RT heart strain on TTE, thus presumed pulmonary emboli, who also developed AF w RVR during this stay. PE/DVT -no CTA for PE given very recent fulminant kidney failure (now resolved) but with + U/S for DVT and evidence of RT heart strain combined with clinical picture (windedness, initially O2 need) - very likely c/w pulmonary emboli. -begun on rivaroxaban, tolerating well AF with RVR - PAF on monitor over the weekend, now in sinus - recommend in definite anticoagulation -also start on Toprol XL 12.5 (does not appear to tolerate any higher doses at this time - hypotension - resolved). Diverticulitis - incidentally found on CT abd/pelvis - treated empirically with cipro/flagyl, recommend finish therapy. Otherwise doing well, tolerating PO, normal BMs. FEN/GI: HH diet DVT ppx: rivaroxaban CODE STATUS: FULL DISPO: MED/TELE await DC to home. For close f/u with PCP Other ongoing medical issues: Bilateral nephrolithiasis - ongoing follow up with urology T2DM - to resume metformin on discharge (2) Atrial fibrillation with RVR: (3) Bilateral nephrolithiasis: (4) Hypertension: (5) Diabetes mellitus: (6) Diverticulitis: (7) Palpitations: (8) Lightheadedness: Supervising Physician Co-Signing Physician Notes I personally examined the patient and verified all mosley points of history and exam, discussed case, and agree with decision making with Dr Beasley. Feeling better. Still a little bit lightheaded, but far better than before. We took a walk around the hallway and he did well walking the entire length of the hallway, with his pulse ox staying 94% or greater on room air, he was conversational the whole time. Answered all questions the best my ability. Vitals noted, in general he is awake and alert pleasant no distress. HEENT normocephalic atraumatic mucous members moist. Breathing unlabored no accessory muscle use good effort. Skin shows no rashes no pallor or icterus. He has no conversational dyspnea even when walking, he does breathe a little bit heavy, but notes this is actually his normal. His gait is steady, somewhat slow but no loss of balance. New onset atrial fibrillationrate controlled, we discussed sending home on medication versus monitoring, and given that he was lightheaded possibly somewhat as a side effect of blood pressure medications, for now will use low dose metoprolol and have close f/u. Anticoagulated with Xarelto DVThigh suspicion for PE as well. 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 Given that he had a DVT, he would need it anticoagulated regardless, his symptoms and new onset A. fib certainly would fit with having had a PE. He needs anticoagulated indefinitely for the atrial fibrillation, continue Xarelto for DVT presumed PE as well. Stable for discharge to home, close follow-up as above Subjective Feeling well this AM - worked with PT, do not rec rehab. Tolerating PO. Does feel like he gets winded with exertion, although he states this is also his baseline. Took a lap with pt in the negrete, did well, some windedness. Review of Systems Review of Systems: All systems reviewed & are unremarkable except as noted in HPI & below Physical Exam Physical Exam: Vitals noted and reviewed, as above GENERAL: no acute distress HEAD: normocephalic atraumatic ENT: sclerae normal, trachea midline RESP: normal work of breathing CV: regular rate and rhythm ABDOMEN: nondistended SKIN: no rashes or jaundice PSYCH: appropriate mood and affect Results & Data Vital Signs (Past 12 Hours) Vital Signs Temp Pulse Pulse Pulse Resp BP BP 05/19/19 15:50 88 05/19/19 15:46 37.1 C 83 20 117/80 05/19/19 14:31 36.4 C L 81 79 18 122/83 98/73 L 05/19/19 14:14 36.4 C L 81 79 18 122/83 98/73 L 05/19/19 11:03 36.4 C L 79 18 122/83 05/19/19 07:53 37.0 C 78 20 116/80 05/19/19 07:00 73 Pulse Ox 05/19/19 15:50 05/19/19 15:46 98 05/19/19 14:31 98 09/16/19 14:14 98 05/19/19 11:03 98 05/19/19 07:53 96 05/19/19 07:00 PG Care Time/CCT Total # of Minutes Spent Total Time Spent with Patient: Total time spent is greater than 50% in coordination of care (as documented) at patient's floor/unit and/or counseling patient: Resident Activity Tracking Resident Involvement: Resident Care Provided Care Provided: Adult Hospital Medicine
[2019-05-19] MEDS: METOPROLOL SUCC 25MG EXT REL TAB PO SCH (20:10)
[2019-05-20] MEDS: FOLIC ACID 1 MG TAB PO SCH (08:01)
[2019-05-20] MEDS: METOPROLOL SUCC 25MG EXT REL TAB PO SCH (08:01)
[2019-05-20] MEDS: FERROUS SULFATE 325 MG TAB PO SCH (08:01)
[2019-05-20] MEDS: metroNIDAZOLE 500 MG TAB PO SCH ×2 (08:02→13:57)
[2019-05-20] MEDS: CIPROFLOXACIN 500 MG TAB PO SCH (08:02)
[2019-05-20] MEDS: RIVAROXABAN 15 MG TAB PO SCH (08:02)
[2019-05-20] MEDS: INSULIN ASPART 100 UNITS/ML 3 ML PEN SC SCH ×2 (08:05→12:48)
== END 2019-05-20 16:00 | disposition home or self-care (01) | DRG 300 ==
LOC: ED 18:36 → SUATTDRO 21:35 → 2W 21:35

== ENCOUNTER 2020-12-24 19:48 | Inpatient (IN) ==
[2020-12-24 22:17] LABS: iSTAT Creatinine 1.5 mg/dl (0.6-1.3); iSTAT Hemoglobin 15.3 g/dl (14.0-18.0); iSTAT Ionized Calcium 1.04 mmol/l (1.12-1.32); iSTAT Potassium 4.2 mmol/L (3.3-5.0)
[2020-12-24 22:19] LABS: Basophils # (auto) 0.01 K/uL (0-0.2); Basophils % (auto) 0.1 %; Hemoglobin 14.4 g/dL (14.0-18.0); Immature Granulocytes # (auto) 0.01 K/uL (0.00-0.02); Immature Granulocytes % (auto) 0.1 %; Lymphocytes # (auto) 0.89 K/uL (1.2-3.4); Mean Corpuscular Hemoglobin 28.4 pg (25-34); Mean Corpuscular Hgb Conc 33.5 g/dL (32-36); Mean Corpuscular Volume 84.8 fL (80-100); Mean Platelet Volume 8.9 fL (7.4-10.4); Monocytes # (auto) 0.65 K/uL (0.11-0.59); Monocytes % (auto) 9.5 %; Neutrophils # (auto) 5.28 K/uL (1.4-6.5); Neutrophils % (auto) 77.3 %; Platelet Count 247 K/uL (130-400); RDW Coefficient of Variation 15.7 % (11.5-14.5); RDW Standard Deviation 48.8 fL (36.4-46.3); Red Blood Count 5.07 M/uL (4.7-6.1); White Blood Count 6.84 K/uL (4.8-10.8)
[2020-12-24 22:28] LABS: Alanine Aminotransferase 34 U/L (12-78); Albumin Level 3.5 gm/dl (3.4-5.0); Aspartate Aminotransferase 44 U/L (15-37); BUN Creatinine Ratio 17.5 (10-20); Blood Urea Nitrogen 26 mg/dl (7-18); Calcium 9.1 mg/dl (8.5-10.1); Carbon Dioxide 22 mmol/L (21-32); Chloride 105 mmol/L (98-107); Est GFR (African American) 58.6; Est GFR (Non-African American) 50.6; Glucose 96 mg/dl (70-99); Lipase 99 U/L (73-393); Potassium 4.2 mmol/L (3.5-5.1); Sodium 137 mmol/L (136-145)
[2020-12-24 22:30] LABS: Base Excess ABG -3.5 mEq/L (-9-1.8); HCO3 ABG 18 mmol/L (19-24); Oxygen Saturation ABG 94.1 % (90-95); PCO2 ABG 26 mmHg (35-46); PO2 ABG 63 mmHg (80-95); pH ABG 7.47 (7.35-7.45)
[2020-12-24 22:33] LABS: Albumin Globulin Ratio 0.6 (0.9-2); Alkaline Phosphatase 84 U/L (45-117); Bilirubin,Total 0.4 mg/dl (0.2-1); Globulin 5.7 gm/dl (2.5-4.0); NT Pro B Type Natriuretic Pept 32 pg/ml (0-900); Total Protein 9.2 gm/dl (6.4-8.2); Troponin I < 0.015 ng/ml (0-0.045)
[2020-12-24 22:53] LABS: Influenza A virus by PCR Negative (Neg); Influenza B virus by PCR Negative (Neg); RSV by PCR Negative (Neg)
[2020-12-24 22:57] LABS: Allen Test POS (Pos)
[2020-12-24] MEDS ORDERED: OPTIRAY 350 500ml IV ONE (23:02)
[2020-12-24 23:27] LABS: SARS CoV2 RNA(COVID-19) InHosp POSITIVE (Negative)
[2020-12-24] MEDS ORDERED: dexAMETHasone**PF** 10 MG/ML VIAL IV ONE (23:28)
--- NOTE | 2020-12-25 00:32 | History & Physical Report ---
Date of Service December 25, 2020 Assessment & Plan (1) COVID-19: Patient with Covid-19, hypoxic on arrival now improved with supplemental O2 - SpO2 of 94% on 3L NC. -Admit to medical -Maintain isolation precautions -Dexamethasone 6mg IV daily -Remdesivir per 5 day protocol -Patient is anticoagulated -Supplemental O2 as needed -Tylenol, Tessalon, ALbuterol HFA and Zofran PRN -Repeat troponin with AM labs Present on Admission?: Yes (2) Diabetes mellitus: Controlled. BSG=96 -Hold Metformin for now -Check A1C with AM labs -Lantus 5u BID -ISS Present on Admission?: Yes (3) Hypertension: Blood pressure stable -Continue Metoprolol 12.5mg po qAM -Continue to monitor Present on Admission?: Yes (4) Atrial fibrillation: History of. Presently in NSR -Continue Metoprolol -Continue Xarelto F/E/N - Heplock. Electrolytes WNL. CC/AHA diet as tolerated Ppx - On Xarelto anticoagulation for history of AF and prior VTE Code - Full per discussion with patient Dispo - Admit to medical Present on Admission?: Yes History of Present Illness Chief Complaint: shortness of breath Primary Care Provider: Irina Maldonado MD Sriram Drosey is a pleasant 60yo C male with history of DM/HTN and AF on Xarelto anticoagulation. Patient has been feeling fairly well over the last several days. However, he was mowing his lawn this afternoon around 15:00 when he developed shortness of breath on exertion and cough. He had some mild left sided chest pressure as well. Patient had several episodes of vomiting on 12/23/19, otherwise he denies fever/chills/palpitations/abdominal pain/diarrhea/loss of taste or smell. His brother just tested positive for Covid-19 as well. Patient has been spending time with him. He has not yet been vaccinated against Covid-19 In the ER patient afebrile, HD stable. Tachypneic with RR of 26, initially saturating 89% on room air which improved to 94% on 3L NC ER Course: Dexamethasone 6mg IV Allergies Allergy/AdvReac Type Severity Reaction Status Date / Time No Known Allergies Allergy Verified 12/24/20 22:16 Home Medications Medication Instructions Recorded Confirmed Type folic acid 1 mg tablet 1 mg PO DAILY #30 tab 10/27/20 12/24/20 Rx metformin 500 mg tablet 500 mg PO BID #60 tab 10/27/20 12/24/20 Rx potassium chloride 20 mEq 20 meq PO DAILY #30 tab 10/28/20 12/24/20 Rx tablet,extended release(part/cryst) ferrous sulfate 325 mg (65 mg 325 mg PO DAILY #30 tab 11/29/20 12/24/20 Rx iron) tablet metoprolol succinate 12.5 mg PO QAM 12/24/20 12/24/20 History rivaroxaban [Xarelto] 20 mg PO DAILY 12/24/20 12/24/20 History Past Med/Surg History Medical History (Updated 12/25/20 @ 02:35 by Nadia Reddy DO) Atrial fibrillation Diagnosed 05/2019. Pt to see [facility] for f/u on 07/28 Complicated UTI (urinary tract infection) Seeing ID, to have PICC line and IV ABX prior to surgery. Diabetes mellitus, type 2 Exertional dyspnea History of dysuria post-op urinary retention requiring stent (ureteral) Hx of deep venous thrombosis RLE (05/2019) currently on Xarelto Hypertension Surgical History History of urinary tract surgery STENT PLACEMENT (URETERAL) Family History Mother FHx: diabetes mellitus Social History Smoking Status: Former smoker Second Hand Exposure: No; Do You Dip or Chew Tobacco: Yes; Hx Alcohol Use: No Hx Substance Use: No Preferred Language: Eritrean Communication Ability: Effective Color Strainer Required: No Beliefs That Will Affect Care: None marital status: Single Current Living Situation: Alone Current Living Situation Comment: Lives on a property with brother nearby current occupational status: unemployed Feels Safe at Home: Yes Assistive Devices: Walker Review of Systems Review of Systems: All systems reviewed & are unremarkable except as noted in HPI & below Physical Exam Physical Exam: General: patient resting comfortably, NAD, non-toxic in appear ance, AA&O x 4 Skin: warm, dry, intact, no rashes or lesions HEENT: NC/AT, PERRL, EOMI, anicteric sclera, conjunctiva without injection, external ear normal to inspection and nontender, nares patent, moist mucus membranes, dentition intact, no oropharyngeal lesions, neck supple, trachea midline, no LAD, no thyromegaly, no JVD Heart: +S1/S2, regular, no m/r/g Lungs: equal air entry bilaterally, no rales/rhonchi/wheezes, +tachypneic Abd: +BS, soft, NT/ND, no masses/organomegaly/ascites Ext: warm, 2+ pulses in UE/LE bilaterally, no clubbing/cyanosis or edema Neuro: nonfocal, patient AA&O x 4, speech intact, no facial droop, moving all extremities on command with equal strength 5/5 Results & Data Results & Data ([facility]) Vital Signs (Past 12 Hours) Vital Signs Temp Pulse Resp BP Pulse Ox 12/25/20 00:00 87 27 H 116/65 91 12/24/20 23:30 84 26 H 143/87 H 93 12/24/20 22:30 88 22 132/87 96 12/24/20 22:03 96 12/24/20 22:00 90 21 131/85 97 12/24/20 21:58 91 H 35 H 96 12/24/20 21:56 90 39 H 135/84 96 12/24/20 20:05 37.0 C 94 H 18 136/91 89 L Laboratory Results Lab Results 12/24/20 12/24/20 12/24/20 Range/Units 21:55 21:55 21:55 WBC 6.84 (4.8-10.8) K/uL RBC 5.07 (4.7-6.1) M/uL Hgb 14.4 (14.0-18.0) g/dL POC Hgb (14.0-18.0) g/dl Hct 43.0 (42-52) % POC Hct (42-52) % MCV 84.8 (80-100) fL MCH 28.4 (25-34) pg MCHC 33.5 (32-36) g/dL RDW Std Deviation 48.8 H (36.4-46.3) fL RDW Coeff of Mayito 15.7 H (11.5-14.5) % Plt Count 247 (130-400) K/uL MPV 8.9 (7.4-10.4) fL Immature Gran % (Auto) 0.1 % Neut % (Auto) 77.3 % Lymph % (Auto) 13.0 % Caswell % (Auto) 9.5 % Eos % (Auto) 0.0 % Baso % (Auto) 0.1 % Neut # (Auto) 5.28 (1.4-6.5) K/uL Lymph # (Auto) 0.89 L (1.2-3.4) K/uL Caswell # (Auto) 0.65 H (0.11-0.59) K/uL Eos # (Auto) 0.00 (0-0.5) K/uL Baso # (Auto) 0.01 (0-0.2) K/uL Immature Gran # (Auto) 0.01 (0.00-0.02) K/uL ABG pH (7.35-7.45) ABG pCO2 (35-46) mmHg ABG pO2 (80-95) mmHg ABG HCO3 (19-24) mmol/L ABG O2 Saturation (90-95) % ABG Base Excess (-9-1.8) mEq/L Jose Test (Pos) Barometric Pressure mm/Hg Oxygen Given POC Sodium (135-144) mmol/L Sodium 137 (136-145) mmol/L POC Potassium (3.3-5.0) mmol/L Potassium 4.2 (3.5-5.1) mmol/L POC Chloride (101-112) mmol/L Chloride 105 (98-107) mmol/L Carbon Dioxide 22 (21-32) mmol/L POC Total CO2 (24-31) mmol/L Anion Gap 10.0 (3-11) POC Anion Gap (16-25) mmol/L POC BUN (7-18) mg/dl BUN 26 H (7-18) mg/dl Creatinine 1.50 H (0.6-1.4) mg/dl POC Creatinine (0.6-1.3) mg/dl Est Cr Clr Drug Dosing Not Reportable Est GFR ( Amer) 58.6 Est GFR (Non-Af Amer) 50.6 BUN/Creatinine Ratio 17.5 (10-20) Glucose 96 (70-99) mg/dl POC Glucose (other) (70-99) mg/dl Calcium 9.1 (8.5-10.1) mg/dl POC Ioniz Calcium Nabeel (1.12-1.32) mmol/l Phosphorus 2.7 (2.5-4.9) mg/dl Magnesium 2.3 (1.8-2.4) mg/dl Total Bilirubin 0.4 (0.2-1) mg/dl AST 44 H (15-37) U/L ALT 34 (12-78) U/L Alkaline Phosphatase 84 (45-117) U/L Total Creatine Kinase 123 (39-308) U/L Troponin I < 0.015 (0-0.045) ng/ml NT-Pro-B Natriuret Pep 32 (0-900) pg/ml Total Protein 9.2 H (6.4-8.2) gm/dl Albumin 3.5 (3.4-5.0) gm/dl Globulin 5.7 H (2.5-4.0) gm/dl Albumin/Globulin Ratio 0.6 L (0.9-2) Lipase 99 (73-393) U/L COVID-19 Eval Order CovFluRsv at [facility] SARS-CoV-2 (PCR) (Negative) Influenza Type A (PCR) (Neg) Influenza Type B (PCR) (Neg) RSV (RT-PCR) (Neg) 12/24/20 12/24/20 12/24/20 Range/Units 21:55 22:04 22:16 WBC (4.8-10.8) K/uL RBC (4.7-6.1) M/uL Hgb (14.0-18.0) g/dL POC Hgb 15.3 (14.0-18.0) g/dl Hct (42-52) % POC Hct 45 (42-52) % MCV (80-100) fL MCH (25-34) pg MCHC (32-36) g/dL RDW Std Deviation (36.4-46.3) fL RDW Coeff of Mayito (11.5-14.5) % Plt Count (130-400) K/uL MPV (7.4-10.4) fL Immature Gran % (Auto) % Neut % (Auto) % Lymph % (Auto) % Caswell % (Auto) % Eos % (Auto) % Baso % (Auto) % Neut # (Auto) (1.4-6.5) K/uL Lymph # (Auto) (1.2-3.4) K/uL Caswell # (Auto) (0.11-0.59) K/uL Eos # (Auto) (0-0.5) K/uL Baso # (Auto) (0-0.2) K/uL Immature Gran # (Auto) (0.00-0.02) K/uL ABG pH 7.47 H (7.35-7.45) ABG pCO2 26 L (35-46) mmHg ABG pO2 63 L (80-95) mmHg ABG HCO3 18 L (19-24) mmol/L ABG O2 Saturation 94.1 (90-95) % ABG Base Excess -3.5 (-9-1.8) mEq/L Jose Test POS (Pos) Barometric Pressure 732.7 mm/Hg Oxygen Given 3 L POC Sodium 138 (135-144) mmol/L Sodium (136-145) mmol/L POC Potassium 4.2 (3.3-5.0) mmol/L Potassium (3.5-5.1) mmol/L POC Chloride 103 (101-112) mmol/L Chloride (98-107) mmol/L Carbon Dioxide (21-32) mmol/L POC Total CO2 24 (24-31) mmol/L Anion Gap (3-11) POC Anion Gap 16.0 (16-25) mmol/L POC BUN 27 H (7-18) mg/dl BUN (7-18) mg/dl Creatinine (0.6-1.4) mg/dl POC Creatinine 1.5 H (0.6-1.3) mg/dl Est Cr Clr Drug Dosing Est GFR ( Amer) Est GFR (Non-Af Amer) BUN/Creatinine Ratio (10-20) Glucose (70-99) mg/dl POC Glucose (other) 101 H (70-99) mg/dl Calcium (8.5-10.1) mg/dl POC Ioniz Calcium Nabeel 1.04 L (1.12-1.32) mmol/l Phosphorus (2.5-4.9) mg/dl Magnesium (1.8-2.4) mg/dl Total Bilirubin (0.2-1) mg/dl AST (15-37) U/L ALT (12-78) U/L Alkaline Phosphatase (45-117) U/L Total Creatine Kinase (39-308) U/L Troponin I (0-0.045) ng/ml NT-Pro-B Natriuret Pep (0-900) pg/ml Total Protein (6.4-8.2) gm/dl Albumin (3.4-5.0) gm/dl Globulin (2.5-4.0) gm/dl Albumin/Globulin Ratio (0.9-2) Lipase (73-393) U/L COVID-19 Eval Order SARS-CoV-2 (PCR) POSITIVE A* (Negative) Influenza Type A (PCR) Negative (Neg) Influenza Type B (PCR) Negative (Neg) RSV (RT-PCR) Negative (Neg) Diagnostic Findings CTA - per STAT-rad: No evidence of acute PE. Evidence of viral pneumonia ECG Additional Comments: EKG wtih NSR at 89, normal axis, IJ=536, QRS=72, SRg=400, no acute ischemic changes Code Status & VTE Plan VTE Prophylaxis Plan VTE Prophylaxis will be ordered: Yes PG Care Time/CCT Total # of Minutes Spent Total Time Spent with Patient: Total time spent is greater than 50% in coordination of care (as documented) at patient's floor/unit and/or counseling patient: Coding Level of Care Code 94716 Initial Inpt Care Lvl 3 Diagnoses COVID-19 U07.1 Diabetes mellitus E11.9 Diabetes mellitus type: type 2 Diabetes mellitus extermination inspector insulin use: without extermination inspector use Diabetes mellitus complication status: without complication Hypertension I10 Hypertension type: essential hypertension Atrial fibrillation I48.91 Atrial fibrillation type: unspecified (1) Diabetes mellitus Diabetes mellitus type: type 2 Diabetes mellitus prison insulin use: without prison use Diabetes mellitus complication status: without complication Qualified Code(s): E11.9 - Type 2 diabetes mellitus without complications (2) Hypertension Hypertension type: essential hypertension Qualified Code(s): I10 - Essential (primary) hypertension (3) Atrial fibrillation Atrial fibrillation type: unspecified Qualified Code(s): I48.91 - Unspecified atrial fibrillation
[2020-12-25] MEDS ORDERED: BENZONATATE 100 MG CAPSULE PO PRN (02:08)
[2020-12-25] MEDS ORDERED: GLUCOSE 40% GEL 15 GM TUBE PO PRN (02:08)
[2020-12-25] MEDS ORDERED: GLUCAGON FOR INJ 1 MG VIAL SQ PRN (02:08)
[2020-12-25] MEDS ORDERED: ACETAMINOPHEN 325 MG TAB PO PRN (02:08)
[2020-12-25] MEDS ORDERED: GLUCOSE 10 TABS/TUBE PO PRN (02:08)
[2020-12-25] MEDS ORDERED: CARBOHYDRATES FOR HYPOGLYCEMIA PO PRN (02:08)
[2020-12-25] MEDS ORDERED: ONDANSETRON INJ 2 MG/ML 2 ML VIAL IV PRN (02:08)
[2020-12-25] MEDS ORDERED: DEXTROSE 50% 50 ML SYRINGE IV PRN (02:08)
[2020-12-25] MEDS ORDERED: REMDESIVIR 200 MG in SODIUM CHLORIDE 0.9% 210 ML IV STA (02:24)
[2020-12-25 02:28] LABS: Creatine Kinase 123 U/L (39-308); Magnesium 2.3 mg/dl (1.8-2.4); Phosphorus 2.7 mg/dl (2.5-4.9)
[2020-12-25] MEDS: ALBUTEROL HFA 8 GM INHALER INH SCH ×2 (03:43→07:23)
--- NOTE | 2020-12-25 04:00 | Emergency Department Note ---
History of Present Illness General Chief Complaint: Chest Pain Stated Complaint: TROUBLE BREATHING Time Seen by Provider: 12/24/20 21:28 History of Present Illness Maximum Pain Intensity: 8 This 60-year-old presents to the ER complaining of chest pain and dyspnea Location: Chest Quality: Hard to breathe Severity: Moderate Duration: Today Timing: Today Context: Patient was concerned and came in Modifying factors: better with rest; worse with activity Patient denies fever, chills, abdominal pain, flulike illness, vomiting, diarrhea. No Covid vaccine. No known Covid exposures. Home Medications Medication Instructions Recorded Confirmed Type folic acid 1 mg tablet 1 mg PO DAILY #30 tab 10/27/20 12/24/20 Rx metformin 500 mg tablet 500 mg PO BID #60 tab 10/27/20 12/24/20 Rx potassium chloride 20 mEq 20 meq PO DAILY #30 tab 10/28/20 12/24/20 Rx tablet,extended release(part/cryst) ferrous sulfate 325 mg (65 mg 325 mg PO DAILY #30 tab 11/29/20 12/24/20 Rx iron) tablet metoprolol succinate 12.5 mg PO QAM 12/24/20 12/24/20 History rivaroxaban [Xarelto] 20 mg PO DAILY 12/24/20 12/24/20 History Allergies Allergy/AdvReac Type Severity Reaction Status Date / Time No Known Allergies Allergy Verified 12/24/20 22:16 Past Med/Surg History Medical History Atrial fibrillation Diagnosed 05/2019. Pt to see Alissa for f/u on 07/28 Complicated UTI (urinary tract infection) Seeing ID, to have PICC line and IV ABX prior to surgery. Diabetes mellitus, type 2 Exertional dyspnea History of dysuria post-op urinary retention requiring stent (ureteral) Hx of deep venous thrombosis RLE (05/2019) currently on Xarelto Hypertension Surgical History History of urinary tract surgery STENT PLACEMENT (URETERAL) Family History Mother FHx: diabetes mellitus Social History Smoking Status: Former smoker Second Hand Exposure: No; Hx Alcohol Use: No Hx Substance Use: No Preferred Language: Ethiopian Communication Ability: Effective Supervisor Steno Pool Required: No Beliefs That Will Affect Care: None marital status: Single Current Living Situation: Alone Current Living Situation Comment: Lives on a property with brother nearby current occupational status: unemployed Feels Safe at Home: Yes Assistive Devices: Oxygen - Continuous Review of Systems A total of 10 systems reviewed and were otherwise negative Physical Exam Vital Signs Vital Signs - 24 hr 12/24/20 20:05 12/24/20 20:11 12/24/20 21:56 Temperature 37.0 C Temperature Source Temporal Artery Scan Pulse Rate 94 H 90 Pulse Rate from SpO2 Sensor 90 Respiratory Rate 18 39 H Respiratory Effort / Characteristics Non-Labored Spontaneous Respiratory Depth Normal Respiratory Pattern Regular Blood Pressure 136/91 135/84 Blood Pressure Mean 106 101 Blood Pressure Position Sitting Pulse Oximetry 89 L 96 Oxygen Delivery Method Room Air Nasal Cannula Nasal Cannula Oxygen Flow Rate 2 3 Sepsis Recent Fever Within 48 Hours No Sepsis New/Unexplained Change in Mental Status No Sepsis Action Taken by Nursing No Action Required 12/24/20 21:58 12/24/20 22:00 12/24/20 22:03 Temperature Temperature Source Pulse Rate 91 H 90 Pulse Rate from SpO2 Sensor 92 H 96 H Respiratory Rate 35 H 21 Respiratory Effort / Characteristics Respiratory Depth Respiratory Pattern Blood Pressure 131/85 Blood Pressure Mean 100 Blood Pressure Position Pulse Oximetry 96 97 96 Oxygen Delivery Method Nasal Cannula Nasal Cannula Nasal Cannula Oxygen Flow Rate 3 3 3 Sepsis Recent Fever Within 48 Hours Sepsis New/Unexplained Change in Mental Status Sepsis Action Taken by Nursing 12/24/20 22:30 12/24/20 23:30 12/25/20 00:00 Temperature Temperature Source Pulse Rate 88 84 87 Pulse Rate from SpO2 Sensor 89 84 87 Respiratory Rate 22 26 H 27 H Respiratory Effort / Characteristics Respiratory Depth Respiratory Pattern Blood Pressure 132/87 143/87 H 116/65 Blood Pressure Mean 102 105 82 Blood Pressure Position Pulse Oximetry 96 93 91 Oxygen Delivery Method Nasal Cannula Nasal Cannula Nasal Cannula Oxygen Flow Rate 3 3 3 Sepsis Recent Fever Within 48 Hours Sepsis New/Unexplained Change in Mental Status Sepsis Action Taken by Nursing 12/25/20 00:30 Temperature Temperature Source Pulse Rate 87 Pulse Rate from SpO2 Sensor 87 Respiratory Rate 24 Respiratory Effort / Characteristics Respiratory Depth Respiratory Pattern Blood Pressure 132/75 Blood Pressure Mean 94 Blood Pressure Position Pulse Oximetry 91 Oxygen Delivery Method Nasal Cannula Oxygen Flow Rate 3 Sepsis Recent Fever Within 48 Hours Sepsis New/Unexplained Change in Mental Status Sepsis Action Taken by Nursing VITALS: Vitals are noted on the nurse's note and reviewed by myself. Vital sig ns hypoxic at 85% on room air. GENERAL: White male working to breathe SKIN: The skin was without rashes, erythema, edema, or bruising. There is no tenting of the skin. Capillary reflex less than 2 seconds. HEAD: Normocephalic atraumatic. EARS: External auditory canals clear, tympanic membranes pearly zaldivar without erythema or effusion bilaterally. EYES: Pupils equal round and reactive to light and accommodation. Conjunctivae without injection, sclerae without icterus. Extraocular movements intact. NOSE: Patent, turbinates without inflammation or discharge. No sinus tenderness. MOUTH: Mucous membranes moist. Pharynx without erythema or exudate. Uvula midline. Airway patent. Tongue does not deviate. NECK: Supple without nuchal rigidity. No lymphadenopathy. No thyromegaly. Cervical spine is nontender. No JVD. HEART: Regular rate and rhythm LUNGS: Mild diffuse end expiratory wheezes, No retractions or accessory muscle use. ABDOMEN: Positive bowel sounds x 4. Normal tympanic percussion. Soft, nontender, without masses or organomegaly. Nieto sign negative. No guarding or rebound tenderness. No CVA tenderness MUSCULOSKELETAL: No muscle atrophy, erythema, or edema noted. NEURO: Patient was alert and oriented to person place and time. Normal sensation to light and sharp touch. No focal neurological deficits. Course Administered Medications Albuterol (Albuterol Hfa 8 Gm Inhaler) 2 puffs INH Q4R YASIR Stop: 01/24/21 02:59 Last Admin: 12/25/20 03:43 Dose: 2 puffs Documented by: [id number] Remdesivir 200 mg/ Sodium (Chloride) 250 mls @ 125 mls/hr IV ONE STA; Protocol Stop: 12/25/20 04:23 Last Admin: 12/25/20 03:38 Dose: 125 mls/hr Documented by: [id number] Discontinued Medications Dexamethasone Sodium Phosphate (DexamethasonePf 10 Mg/Ml Vial) 6 mg IV NOW ONE Stop: 12/24/20 23:29 Last Admin: 12/24/20 23:51 Dose: 6 mg Documented by: [id number] Ioversol (Optiray 350 500ml) 120 ml IV ONCE ONE Stop: 12/24/20 23:03 Last Admin: 12/24/20 23:02 Dose: 120 ml Documented by: [id number] Medical Decision Making Medical Records Attestation: I reviewed the patient's medical records. Home Medications Current Medication List: was personally reviewed by me Laboratory Data Attestation: I reviewed the patient's lab results. Result diagrams: 12/24/20 21:55 12/24/20 21:55 Labs: Lab Results 12/24/20 12/24/20 12/24/20 Range/Units 21:55 21:55 21:55 WBC 6.84 (4.8-10.8) K/uL RBC 5.07 (4.7-6.1) M/uL Hgb 14.4 (14.0-18.0) g/dL POC Hgb (14.0-18.0) g/dl Hct 43.0 (42-52) % POC Hct (42-52) % MCV 84.8 (80-100) fL MCH 28.4 (25-34) pg MCHC 33.5 (32-36) g/dL RDW Std Deviation 48.8 H (36.4-46.3) fL RDW Coeff of Mayito 15.7 H (11.5-14.5) % Plt Count 247 (130-400) K/uL MPV 8.9 (7.4-10.4) fL Immature Gran % (Auto) 0.1 % Neut % (Auto) 77.3 % Lymph % (Auto) 13.0 % Doddridge % (Auto) 9.5 % Eos % (Auto) 0.0 % Baso % (Auto) 0.1 % Neut # (Auto) 5.28 (1.4-6.5) K/uL Lymph # (Auto) 0.89 L (1.2-3.4) K/uL Doddridge # (Auto) 0.65 H (0.11-0.59) K/uL Eos # (Auto) 0.00 (0-0.5) K/uL Baso # (Auto) 0.01 (0-0.2) K/uL Immature Gran # (Auto) 0.01 (0.00-0.02) K/uL ABG pH (7.35-7.45) ABG pCO2 (35-46) mmHg ABG pO2 (80-95) mmHg ABG HCO3 (19-24) mmol/L ABG O2 Saturation (90-95) % ABG Base Excess (-9-1.8) mEq/L Jose Test (Pos) Barometric Pressure mm/Hg Oxygen Given POC Sodium (135-144) mmol/L Sodium 137 (136-145) mmol/L POC Potassium (3.3-5.0) mmol/L Potassium 4.2 (3.5-5.1) mmol/L POC Chloride (101-112) mmol/L Chloride 105 (98-107) mmol/L Carbon Dioxide 22 (21-32) mmol/L POC Total CO2 (24-31) mmol/L Anion Gap 10.0 (3-11) POC Anion Gap (16-25) mmol/L POC BUN (7-18) mg/dl BUN 26 H (7-18) mg/dl Creatinine 1.50 H (0.6-1.4) mg/dl POC Creatinine (0.6-1.3) mg/dl Est Cr Clr Drug Dosing Not Reportable Est GFR ( Amer) 58.6 Est GFR (Non-Af Amer) 50.6 BUN/Creatinine Ratio 17.5 (10-20) Glucose 96 (70-99) mg/dl POC Glucose (other) (70-99) mg/dl Calcium 9.1 (8.5-10.1) mg/dl POC Ioniz Calcium Nabeel (1.12-1.32) mmol/l Phosphorus 2.7 (2.5-4.9) mg/dl Magnesium 2.3 (1.8-2.4) mg/dl Total Bilirubin 0.4 (0.2-1) mg/dl AST 44 H (15-37) U/L ALT 34 (12-78) U/L Alkaline Phosphatase 84 (45-117) U/L Total Creatine Kinase 123 (39-308) U/L Troponin I < 0.015 (0-0.045) ng/ml NT-Pro-B Natriuret Pep 32 (0-900) pg/ml Total Protein 9.2 H (6.4-8.2) gm/dl Albumin 3.5 (3.4-5.0) gm/dl Globulin 5.7 H (2.5-4.0) gm/dl Albumin/Globulin Ratio 0.6 L (0.9-2) Lipase 99 (73-393) U/L COVID-19 Eval Order CovFluRsv at [facility] SARS-CoV-2 (PCR) (Negative) Influenza Type A (PCR) (Neg) Influenza Type B (PCR) (Neg) RSV (RT-PCR) (Neg) 12/24/20 12/24/20 12/24/20 Range/Units 21:55 22:04 22:16 WBC (4.8-10.8) K/uL RBC (4.7-6.1) M/uL Hgb (14.0-18.0) g/dL POC Hgb 15.3 (14.0-18.0) g/dl Hct (42-52) % POC Hct 45 (42-52) % MCV (80-100) fL MCH (25-34) pg MCHC (32-36) g/dL RDW Std Deviation (36.4-46.3) fL RDW Coeff of Mayito (11.5-14.5) % Plt Count (130-400) K/uL MPV (7.4-10.4) fL Immature Gran % (Auto) % Neut % (Auto) % Lymph % (Auto) % Doddridge % (Auto) % Eos % (Auto) % Baso % (Auto) % Neut # (Auto) (1.4-6.5) K/uL Lymph # (Auto) (1.2-3.4) K/uL Doddridge # (Auto) (0.11-0.59) K/uL Eos # (Auto) (0-0.5) K/uL Baso # (Auto) (0-0.2) K/uL Immature Gran # (Auto) (0.00-0.02) K/uL ABG pH 7.47 H (7.35-7.45) ABG pCO2 26 L (35-46) mmHg ABG pO2 63 L (80-95) mmHg ABG HCO3 18 L (19-24) mmol/L ABG O2 Saturation 94.1 (90-95) % ABG Base Excess -3.5 (-9-1.8) mEq/L Jose Test POS (Pos) Barometric Pressure 732.7 mm/Hg Oxygen Given 3 L POC Sodium 138 (135-144) mmol/L Sodium (136-145) mmol/L POC Potassium 4.2 (3.3-5.0) mmol/L Potassium (3.5-5.1) mmol/L POC Chloride 103 (101-112) mmol/L Chloride (98-107) mmol/L Carbon Dioxide (21-32) mmol/L POC Total CO2 24 (24-31) mmol/L Anion Gap (3-11) POC Anion Gap 16.0 (16-25) mmol/L POC BUN 27 H (7-18) mg/dl BUN (7-18) mg/dl Creatinine (0.6-1.4) mg/dl POC Creatinine 1.5 H (0.6-1.3) mg/dl Est Cr Clr Drug Dosing Est GFR ( Amer) Est GFR (Non-Af Amer) BUN/Creatinine Ratio (10-20) Glucose (70-99) mg/dl POC Glucose (other) 101 H (70-99) mg/dl Calcium (8.5-10.1) mg/dl POC Ioniz Calcium Nabeel 1.04 L (1.12-1.32) mmol/l Phosphorus (2.5-4.9) mg/dl Magnesium (1.8-2.4) mg/dl Total Bilirubin (0.2-1) mg/dl AST (15-37) U/L ALT (12-78) U/L Alkaline Phosphatase (45-117) U/L Total Creatine Kinase (39-308) U/L Troponin I (0-0.045) ng/ml NT-Pro-B Natriuret Pep (0-900) pg/ml Total Protein (6.4-8.2) gm/dl Albumin (3.4-5.0) gm/dl Globulin (2.5-4.0) gm/dl Albumin/Globulin Ratio (0.9-2) Lipase (73-393) U/L COVID-19 Eval Order SARS-CoV-2 (PCR) POSITIVE A* (Negative) Influenza Type A (PCR) Negative (Neg) Influenza Type B (PCR) Negative (Neg) RSV (RT-PCR) Negative (Neg) MDM Narrative Prior records/ancillary studies reviewed. Triage Nursing notes reviewed. Additional history obtained from nursing. The patient's history was concerning for respiratory difficulties. Differential diagnosis: Etiologies such as infections, reactive airway disease, pneumonia, pneumothorax, COPD, CHF, cardiac ischemia, pulmonary embolism, musculoskeletal, gastrointestinal, as well as others were entertained. Physical examination: As above. ER treatment provided: An order was placed for continuous cardiac monitoring. The monitor shows a rate of 60-1 20 with a sinus rhythm. Oxygen, Decadron On reassessment the patient felt better. Diagnostic interpretation by me: The electrocardiogram was ordered for chest pain EKG: Normal sinus, T wave flattening the lateral leads, rate 89, T wave inversion lead III. Impression normal sinus rhythm with T wave flattening abnormalities interpreted by myself I think arrhythmia is unlikely. EKG shows normal sinus rhythm with no interval abnormalities such as QT prolongation or WPW. There are no findings to suggest Brugada syndrome. Cardiac monitoring in the emergency department reveals no tachycardic or bradycardic dysrhythmia. Hypertrophic cardiomyopathy was considered but there are no clear historical elements pointing toward this. EKG is not suggestive. The QRS voltage is not extremely large and there are no suggestive Q waves. The labs revealed positive Covid Negative troponin Imaging studies: Preliminary Findings Only See Final Report For Complete Findings CTA CHEST: Comparison: CT chest 05/03/19. Evaluation degraded by respiratory motion artifact. No evidence of acute pulmonary embolism as visualized. Suboptimal evaluation of the distal pulmonary artery branch vessels. Evidence of viral pneumonia with patchy and widespread bilateral ground-glass a nd partly consolidative opacities, most extensive in the lower lobes. No thoracic aortic aneurysm. No pericardial effusion. Coronary artery atherosclerosis. No pleural effusion or pneumothorax. Small hiatal hernia. Radiologist: Romina Ambrosio M.D. Chest x-ray concerning for pulmonary congestion and possible consolidation per my interpretation. Consultation: A consultation was placed with the hospitalist. The case was discussed and diagnostics were reviewed. The patient was evaluated in the ER for further treatment. This appears to be consistent with Covid pneumonia. Patient was hypoxic. He was placed on nasal cannula. His O2 came up. He is given Decadron. Medicine was consulted. He will be evaluated for admission. By the evaluation outlined above emergent etiologies such as CHF, cardiac ischemia, pulmonary embolism, reactive airway disease, pneumothorax, musculoskeletal, serious bacterial infections, as well as others were deemed relatively unlikely. The pt informed about the findings as listed above. All questions were answered and pleased with the treatment. The chart was completed utilizing [employer] Speech voice recognition software. Grammatical errors, random word insertions, pronoun errors, and incomplete sentences are an occassional consequence of this system due to software limitations, ambient noise, and hardware issues. Any formal questions or concerns about the content, text, or information contained within the body of this dictation should be directly addressed to the physician ob gyn physician assistant for clarification. condition. Impression & Plan COVID-19, Hypoxemia Discharge Plan Visit Data Chief Complaint: Chest Pain Stated Complaint: TROUBLE BREATHING ED Provider: Ernie Barney ED Midlevel Provider: Mary Kitchen Discharge Problem: COVID-19, Hypoxemia Patient Disposition: Admitted As Inpatient Condition: Fair Discharge Instructions Interventions: ED Discharge Assessment Last Done: 12/25/20 01:40
[2020-12-25] MEDS: SODIUM CHLORIDE 0.9% 10ML FLUSH IV SCH ×2 (05:51→21:52)
[2020-12-25 08:12] LABS: Estimated Average Glucose 146 mg/dl; Hemoglobin A1C 6.7 % (4.5-5.6)
--- NOTE | 2020-12-25 08:24 | XRay Report ---
SINGLE VIEW CHEST CLINICAL HISTORY: Atypical chest pain. FINDINGS: An AP, portable, upright chest radiograph is compared to study dated 07/25/2019. The examin ation is degraded by portable technique and patient rotation. The heart is enlarged. There is multif ocal airspace consolidation seen throughout both lungs, right greater than left. No large pleural eff usion or Pneumothorax is seen. The skeletal structures appear osteopenic. The bony thorax is grossly intact. IMPRESSION: 1. Multifocal airspace consolidation is seen throughout both lungs, typical for multifocal pneumonia. Clinical correlation will be required and radiographic follow-up to resolution is recommended. 2. Cardiomegaly. ACT 112: Negative or not required by law. Electronically signed by: Lauri Ramsey M.D. 12/25/2020 8:23 AM
--- NOTE | 2020-12-25 08:49 | CT Scan Report ---
CT ANGIOGRAM OF THE CHEST CLINICAL HISTORY: Dyspnea. Covid. COMPARISON STUDY: Chest x-ray dated 12/24/2020. Chest CT dated 05/03/2019 TECHNIQUE: Following the IV administration of 120 cc of Optiray 350, CT angiogram of the chest was pe rformed from the upper abdomen to the thoracic inlet utilizing the pulmonary embolus protocol. Images are reviewed in the axial, sagittal, and coronal planes. 3-D MIPS images are created and assessed. I V contrast was administered without complication. A dose lowering technique was utilized adhering to the principles of ALARA. The examination is degraded by large body habitus, and by streak artifact f rom the body wall abutting the CT gantry. There is also motion artifact. CT DOSE: 1125.33 mGy.cm FINDINGS: Thyroid: Imaged portions of the thyroid gland are normal in size and attenuation. Thoracic aorta: The thoracic aorta is normal in caliber and demonstrates standard 3-vessel arch anato my. No dissection is seen. Pulmonary vasculature: The pulmonary trunk is normal in caliber. There are no filling defects identif ied in main, lobar, or proximal segmental pulmonary branches to suggest pulmonary embolus. Evaluation of the peripheral branches is significantly degraded by motion artifact. Heart: The heart is enlarged and without pericardial effusion. The coronary arteries are densely calc ified. Lungs and pleural spaces: Evaluation of the lung parenchyma is degraded by motion artifact. Multifoca l airspace consolidation is seen throughout both lungs. No pleural effusion is identified. The trache a and central airways are clear. Mediastinum: Prominent mediastinal nodes measure up to 10 mm in short axis. Brigitte: Mildly enlarged hilar nodes measure up to 13 mm in short axis. Axillae: There is no axillary lymphadenopathy. Upper abdomen: There is a moderate hiatal hernia. The liver appears steatotic. Skeletal structures: The skeletal structures are osteopenic. Degenerative change is seen throughout t he thoracic spine. No lytic or blastic bony lesions are identified. IMPRESSION: 1. Streak and motion compromised examination. 2. There is no evidence of central pulmonary embolus in the main, lobar, or proximal segmental pulmon musa arteries. 3. Multifocal airspace consolidation is consistent with the reported history of a viral pneumonia. Ra diographic follow-up to resolution is recommended. 4. Cardiomegaly. 5. Mildly enlarged mediastinal and hilar nodes are likely reactive. 6. Hiatal hernia. 7. Additional findings as above. ACT 112: Negative or not required by law. Electronically signed by: Lauri Ramsey M.D. 12/25/2020 8:48 AM
[2020-12-25] MEDS ORDERED: INSULIN GLARGINE SOLOSTAR 100 UNITS/ML 3 ML PEN SC SCH (09:00)
[2020-12-25] MEDS: dexAMETHasone 6 MG in SYRINGE 0 ML IV SCH (09:10)
[2020-12-25] MEDS: FOLIC ACID 1 MG TAB PO SCH (09:10)
[2020-12-25] MEDS: METOPROLOL SUCC 25MG EXT REL TAB PO SCH (09:10)
[2020-12-25] MEDS: FERROUS SULFATE 325 MG TAB PO SCH (09:11)
[2020-12-25] MEDS: INSULIN ASPART 100 UNITS/ML 3 ML PEN SC SCH ×4 (09:22→20:53)
[2020-12-25 09:39] LABS: D Dimer 420 ug/L FEU (0-500)
[2020-12-25 10:02] LABS: BUN Creatinine Ratio 22.2 (10-20); Calcium 8.5 mg/dl (8.5-10.1); Creatinine Clr Calc Pharmacy 90.4 ml/min; Est GFR (African American) 76.8; Est GFR (Non-African American) 66.3; Potassium 4.2 mmol/L (3.5-5.1)
[2020-12-25] MEDS ORDERED: ACETAMINOPHEN 325 MG TAB PO ONE (10:19)
--- NOTE | 2020-12-25 10:20 | Hospitalist Progress Note ---
Date of Service December 25, 2020 Assessment & Plan (1) Acute respiratory failure with hypoxia: 2nd to mod-severe COVID-19 pneumonia. Proning encouraged but patient adamant that he cannot do such. He will try to lay on his side. Pulmonary toilet. HFNC, keep sats 90% or greater. (2) Pneumonia due to 2019 novel coronavirus: Mod-severe. Only 4-5 days into his illness and already requiring 10 L HFNC. Continue decadron x 10 days, 6mg/day. Continue remdesivir - dose #2 of 5 tonight. Discussed risks/benefits of convalescent plasma. Given that he is so early in his illness course and he is already quite hypoxic he is good candidate for plasma. Consent obtained, type/screen, Tx 1 unit plasma. May be candidate for tocilizumab as well. CXR in am. Check procal, dimer. (3) Hypertension: Continue metoprolol. (4) Diabetes mellitus: HbA1C 6.7%. Increase lantus to 10 units BID. Tighten novolog correction. (5) Hx of deep venous thrombosis: Noted. Continue xarelto 20mg daily. (6) Morbid obesity with BMI of 40.0-44.9, adult: BMI 39.9 (7) Gross hematuria: Pt's brother reported that he has been having gross hematuria intermittently. He apparently has had a ureteral stent in place since 2019 and has not had f/u for such?? Will need to get more info from patient. Check ua and urine cx to start. Check KUB to confirm whether stents are indeed present. (8) PAF (paroxysmal atrial fibrillation): NSR since admission. Cont metoprolol xl. Cont xarelto. (9) DVT prophylaxis: xarelto brother extensively updated by phone Admission and Anticipated Discharge Date Admission Date: December 25, 2020 Subjective patient confirms that he has been sick for 4-5 days earlier this week on Sunday he had nausea with vomiting but no respiratory symptoms no obvious fever/chills developed dyspnea yesterday while cutting his lawn with pushmower does NOT use CPAP or BIPAP for ESTRELLA he is uncertain if he snores brother was sick with COVID recently I updated the pt's brother this evening brother reported that he still has a ureteral stent in place from 2019? never had f/u for this?? pt's brother also reports that Sriram has intermittent gross hematuria Review of Systems Constitutional: + fatigue, + weakness and + anorexia; no fever and no chills Ear, Nose, Mouth, Throat: no loss of taste no loss of smell Respiratory: + cough, + dyspnea and + dyspnea on exertion; no sputum production Cardiovascular: no chest pain and no edema Gastrointestinal: no abdominal pain, no nausea and no vomiting Physical Exam Constitutional: + morbidly obese; no acute distress and no altered mental status ENMT: external ear and nose normal, oropharynx normal Respiratory: + tachypneic Auscultation: + diminished lung sounds (bases) and + crackles (bases); no wheezes Cardiovascular: Rate/Rhythm: regular rate and regular rhythm Heart Sounds: normal S1 and normal S2; no murmur Vessels: posterior tibial pulses present and dorsalis pedis pulses present; no JVD Extremities: no edema Gastrointestinal (Abdomen): normal bowel sounds, soft, nontender, no hepa tosplenomegaly Psychiatric: Orientation: alert and oriented x 3 Results & Data Results & Data ([facility]) Vital Signs (Past 12 Hours) Vital Signs Temp Pulse Pulse Resp BP BP Pulse Ox 12/25/20 07:58 36.6 C 75 19 118/70 88 L 12/25/20 07:23 71 20 91 12/25/20 03:44 82 20 92 12/25/20 03:30 37.1 C 82 24 123/75 92 12/25/20 03:00 22 93 12/25/20 02:09 36.9 C 100 H 22 153/94 H 89 L 12/25/20 01:31 83 26 H 145/102 H 94 12/25/20 00:30 87 24 132/75 91 12/25/20 00:00 87 27 H 116/65 91 12/24/20 23:30 84 26 H 143/87 H 93 12/24/20 22:30 88 22 132/87 96 Laboratory Results Laboratory Results - last 24 hr 12/24/20 12/24/20 12/24/20 21:55 21:55 21:55 WBC 6.84 RBC 5.07 Hgb 14.4 POC Hgb Hct 43.0 POC Hct MCV 84.8 MCH 28.4 MCHC 33.5 RDW Std Deviation 48.8 H RDW Coeff of Mayito 15.7 H Plt Count 247 MPV 8.9 Immature Gran % (Auto) 0.1 Neut % (Auto) 77.3 Lymph % (Auto) 13.0 [place] % (Auto) 9.5 Eos % (Auto) 0.0 Baso % (Auto) 0.1 Neut # (Auto) 5.28 Lymph # (Auto) 0.89 L [place] # (Auto) 0.65 H Eos # (Auto) 0.00 Baso # (Auto) 0.01 Immature Gran # (Auto) 0.01 D-Dimer ABG pH ABG pCO2 ABG pO2 ABG HCO3 ABG O2 Saturation ABG Base Excess Jose Test Barometric Pressure Oxygen Given POC Sodium Sodium 137 POC Potassium Potassium 4.2 POC Chloride Chloride 105 Carbon Dioxide 22 POC Total CO2 Anion Gap 10.0 POC Anion Gap POC BUN BUN 26 H Creatinine 1.50 H POC Creatinine Est Cr Clr Drug Dosing Not Reportable Est GFR ( Amer) 58.6 Est GFR (Non-Af Amer) 50.6 BUN/Creatinine Ratio 17.5 Glucose 96 POC Glucose POC Glucose (other) Estimat Average Glucose Hemoglobin A1c Calcium 9.1 POC Ioniz Calcium Nabeel Phosphorus 2.7 Magnesium 2.3 Total Bilirubin 0.4 AST 44 H ALT 34 Alkaline Phosphatase 84 Total Creatine Kinase 123 Troponin I < 0.015 C-Reactive Protein NT-Pro-B Natriuret Pep 32 Total Protein 9.2 H Albumin 3.5 Globulin 5.7 H Albumin/Globulin Ratio 0.6 L Lipase 99 Procalcitonin COVID-19 Eval Order CovFluRsv at [facility] SARS-CoV-2 (PCR) Hepatitis C Ab Screen Influenza Type A (PCR) Influenza Type B (PCR) RSV (RT-PCR) Blood Type Antibody Screen 12/24/20 12/24/20 12/24/20 21:55 22:04 22:16 WBC RBC Hgb POC Hgb 15.3 Hct POC Hct 45 MCV MCH MCHC RDW Std Deviation RDW Coeff of Mayito Plt Count MPV Immature Gran % (Auto) Neut % (Auto) Lymph % (Auto) [place] % (Auto) Eos % (Auto) Baso % (Auto) Neut # (Auto) Lymph # (Auto) [place] # (Auto) Eos # (Auto) Baso # (Auto) Immature Gran # (Auto) D-Dimer ABG pH 7.47 H ABG pCO2 26 L ABG pO2 63 L ABG HCO3 18 L ABG O2 Saturation 94.1 ABG Base Excess -3.5 Jose Test POS Barometric Pressure 732.7 Oxygen Given 3 L POC Sodium 138 Sodium POC Potassium 4.2 Potassium POC Chloride 103 Chloride Carbon Dioxide POC Total CO2 24 Anion Gap POC Anion Gap 16.0 POC BUN 27 H BUN Creatinine POC Creatinine 1.5 H Est Cr Clr Drug Dosing Est GFR ( Amer) Est GFR (Non-Af Amer) BUN/Creatinine Ratio Glucose POC Glucose POC Glucose (other) 101 H Estimat Average Glucose Hemoglobin A1c Calcium POC Ioniz Calcium Nabeel 1.04 L Phosphorus Magnesium Total Bilirubin AST ALT Alkaline Phosphatase Total Creatine Kinase Troponin I C-Reactive Protein NT-Pro-B Natriuret Pep Total Protein Albumin Globulin Albumin/Globulin Ratio Lipase Procalcitonin COVID-19 Eval Order SARS-CoV-2 (PCR) POSITIVE A* Hepatitis C Ab Screen Influenza Type A (PCR) Negative Influenza Type B (PCR) Negative RSV (RT-PCR) Negative Blood Type Antibody Screen 12/25/20 12/25/20 12/25/20 05:40 05:40 05:40 WBC RBC Hgb POC Hgb Hct POC Hct MCV MCH MCHC RDW Std Deviation RDW Coeff of May[place] Plt Count MPV Immature Gran % (Auto) Neut % (Auto) Lymph % (Auto) [place] % (Auto) Eos % (Auto) Baso % (Auto) Neut # (Auto) Lymph # (Auto) [place] # (Auto) Eos # (Auto) Baso # (Auto) Immature Gran # (Auto) D-Dimer ABG pH ABG pCO2 ABG pO2 ABG HCO3 ABG O2 Saturation ABG Base Excess Jose Test Barometric Pressure Oxygen Given POC Sodium Sodium POC Potassium Potassium POC Chloride Chloride Carbon Dioxide POC Total CO2 Anion Gap POC Anion Gap POC BUN BUN Creatinine POC Creatinine Est Cr Clr Drug Dosing Est GFR ( Amer) Est GFR (Non-Af Amer) BUN/Creatinine Ratio Glucose POC Glucose POC Glucose (other) Estimat Average Glucose 146 Hemoglobin A1c 6.7 H Calcium POC Ioniz Calcium Nabeel Phosphorus Magnesium Total Bilirubin AST ALT Alkaline Phosphatase Total Creatine Kinase Troponin I < 0.015 C-Reactive Protein NT-Pro-B Natriuret Pep Total Protein Albumin Globulin Albumin/Globulin Ratio Lipase Procalcitonin COVID-19 Eval Order SARS-CoV-2 (PCR) Hepatitis C Ab Screen Pending Influenza Type A (PCR) Influenza Type B (PCR) RSV (RT-PCR) Blood Type Antibody Screen 12/25/20 12/25/20 12/25/20 07:56 08:54 08:54 WBC RBC Hgb POC Hgb Hct POC Hct MCV MCH MCHC RDW Std Deviation RDW Coeff of Mayito Plt Count MPV Immature Gran % (Auto) Neut % (Auto) Lymph % (Auto) [place] % (Auto) Eos % (Auto) Baso % (Auto) Neut # (Auto) Lymph # (Auto) [place] # (Auto) Eos # (Auto) Baso # (Auto) Immature Gran # (Auto) D-Dimer 420 ABG pH ABG pCO2 ABG pO2 ABG HCO3 ABG O2 Saturation ABG Base Excess Jose Test Barometric Pressure Oxygen Given POC Sodium Sodium 137 POC Potassium Potassium 4.2 POC Chloride Chloride 106 Carbon Dioxide 22 POC Total CO2 Anion Gap 9.0 POC Anion Gap POC BUN BUN 27 H Creatinine 1.20 D POC Creatinine Est Cr Clr Drug Dosing 90.4 Est GFR ( Amer) 76.8 Est GFR (Non-Af Amer) 66.3 BUN/Creatinine Ratio 22.2 H Glucose 182 H POC Glucose 145 H POC Glucose (other) Estimat Average Glucose Hemoglobin A1c Calcium 8.5 POC Ioniz Calcium Nabeel Phosphorus Magnesium Total Bilirubin AST 37 ALT 31 Alkaline Phosphatase Total Creatine Kinase 121 Troponin I C-Reactive Protein 11.00 H NT-Pro-B Natriuret Pep Total Protein Albumin Globulin Albumin/Globulin Ratio Lipase Procalcitonin COVID-19 Eval Order SARS-CoV-2 (PCR) Hepatitis C Ab Screen Influenza Type A (PCR) Influenza Type B (PCR) RSV (RT-PCR) Blood Type Antibody Screen 12/25/20 12/25/20 12/25/20 08:54 08:54 11:32 WBC RBC Hgb POC Hgb Hct POC Hct MCV MCH MCHC RDW Std Deviation RDW Coeff of Mayito Plt Count MPV Immature Gran % (Auto) Neut % (Auto) Lymph % (Auto) [place] % (Auto) Eos % (Auto) Baso % (Auto) Neut # (Auto) Lymph # (Auto) [place] # (Auto) Eos # (Auto) Baso # (Auto) Immature Gran # (Auto) D-Dimer ABG pH ABG pCO2 ABG pO2 ABG HCO3 ABG O2 Saturation ABG Base Excess Jose Test Barometric Pressure Oxygen Given POC Sodium Sodium POC Potassium Potassium POC Chloride Chloride Carbon Dioxide POC Total CO2 Anion Gap POC Anion Gap POC BUN BUN Creatinine POC Creatinine Est Cr Clr Drug Dosing Est GFR ( Amer) Est GFR (Non-Af Amer) BUN/Creatinine Ratio Glucose POC Glucose 227 H POC Glucose (other) Estimat Average Glucose Hemoglobin A1c Calcium POC Ioniz Calcium Nabeel Phosphorus Magnesium Total Bilirubin AST ALT Alkaline Phosphatase Total Creatine Kinase Troponin I C-Reactive Protein NT-Pro-B Natriuret Pep Total Protein Albumin Globulin Albumin/Globulin Ratio Lipase Procalcitonin 0.06 COVID-19 Eval Order SARS-CoV-2 (PCR) Hepatitis C Ab Screen Influenza Type A (PCR) Influenza Type B (PCR) RSV (RT-PCR) Blood Type A Negative Antibody Screen NEGATIVE 12/25/20 16:24 WBC RBC Hgb POC Hgb Hct POC Hct MCV MCH MCHC RDW Std Deviation RDW Coeff of Mayito Plt Count MPV Immature Gran % (Auto) Neut % (Auto) Lymph % (Auto) [place] % (Auto) Eos % (Auto) Baso % (Auto) Neut # (Auto) Lymph # (Auto) [place] # (Auto) Eos # (Auto) Baso # (Auto) Immature Gran # (Auto) D-Dimer ABG pH ABG pCO2 ABG pO2 ABG HCO3 ABG O2 Saturation ABG Base Excess Jose Test Barometric Pressure Oxygen Given POC Sodium Sodium POC Potassium Potassium POC Chloride Chloride Carbon Dioxide POC Total CO2 Anion Gap POC Anion Gap POC BUN BUN Creatinine POC Creatinine Est Cr Clr Drug Dosing Est GFR ( Amer) Est GFR (Non-Af Amer) BUN/Creatinine Ratio Glucose POC Glucose 182 H POC Glucose (other) Estimat Average Glucose Hemoglobin A1c Calcium POC Ioniz Calcium Nabeel Phosphorus Magnesium Total Bilirubin AST ALT Alkaline Phosphatase Total Creatine Kinase Troponin I C-Reactive Protein NT-Pro-B Natriuret Pep Total Protein Albumin Globulin Albumin/Globulin Ratio Lipase Procalcitonin COVID-19 Eval Order SARS-CoV-2 (PCR) Hepatitis C Ab Screen Influenza Type A (PCR) Influenza Type B (PCR) RSV (RT-PCR) Blood Type Antibody Screen PG Care Time/CCT Total # of Minutes Spent Total Time Spent with Patient: Total time spent is greater than 50% in coordination of care (as documented) at patient's floor/unit and/or counseling patient: Coding Level of Care Code 98706 Subseq Hosp Care Lvl 3 Diagnoses Acute respiratory failure with hypoxia J96.01 Pneumonia due to 2019 novel coronavirus U07.1; J12.82 Hypertension I10 Hypertension type: essential hypertension Diabetes mellitus E11.9 Diabetes mellitus complication status: without complication Diabetes mellitus intermediate frame tender insulin use: without skilled nursing use Diabetes mellitus type: type 2 Hx of deep venous thrombosis Z86.718 Morbid obesity with BMI of 40.0-44.9, adult E66.01; Z68.41 Gross hematuria R31.0 PAF (paroxysmal atrial fibrillation) I48.0 DVT prophylaxis Z29.9 (1) Diabetes mellitus Diabetes mellitus complication status: without complication Diabetes mellitus skilled nursing insulin use: without intermediate frame tender use Diabetes mellitus type: type 2 Qualified Code(s): E11.9 - Type 2 diabetes mellitus without complications (2) Hypertension Hypertension type: essential hypertension Qualified Code(s): I10 - Essential (primary) hypertension
[2020-12-25] MEDS ORDERED: ALBUTEROL HFA 8 GM INHALER INH PRN (10:55)
[2020-12-25] MEDS: RIVAROXABAN 20 MG TAB PO SCH (17:00)
[2020-12-25] MEDS: REMDESIVIR 100 MG in SODIUM CHLORIDE 0.9% 230 ML IV SCH (20:29)
[2020-12-25] MEDS: INSULIN GLARGINE SOLOSTAR 100 UNITS/ML 3 ML PEN SC SCH (20:54)
[2020-12-26 00:01] LABS: Appearance Urine Cloudy (Clear); Bilirubin Urine Negative (Negative); Blood Urine 3+ (Negative); Epithelial Cell Urine Auto 0-5 /lpf (0-5); Glucose Urine UA Negative (Negative); Ketones Urine Negative (Negative); Leukocyte Esterase Urine 2+ (Negative); Nitrite Urine Negative (Negative); Protein Urine 3+ (Negative); Specific Gravity Urine 1.023 (1.000-1.030); Urobilinogen Urine Negative (Negative); WBC Urine Automated >30 /hpf (0-5)
[2020-12-26 00:23] LABS: Color Urine Brown
[2020-12-26 00:46] LABS: RBC Urine Automated >30 /hpf (0-4)
[2020-12-26 00:47] LABS: Cast Urine Automated 0 /lpf (0-5)
[2020-12-26 00:48] LABS: Bacteria Urine Automated 3+ (Negative)
[2020-12-26 07:02] LABS: Basophils # (auto) 0.01 K/uL (0-0.2); Basophils % (auto) 0.1 %; Hematocrit (blood only) 39.4 % (42-52); Hemoglobin 13.2 g/dL (14.0-18.0); Immature Granulocytes # (auto) 0.03 K/uL (0.00-0.02); Immature Granulocytes % (auto) 0.4 %; Lymphocytes # (auto) 0.72 K/uL (1.2-3.4); Lymphocytes % (auto) 8.7 %; Mean Corpuscular Hemoglobin 28.1 pg (25-34); Mean Corpuscular Hgb Conc 33.5 g/dL (32-36); Mean Platelet Volume 8.8 fL (7.4-10.4); Monocytes # (auto) 0.72 K/uL (0.11-0.59); Monocytes % (auto) 8.7 %; Neutrophils # (auto) 6.78 K/uL (1.4-6.5); Neutrophils % (auto) 82.1 %; Platelet Count 285 K/uL (130-400); RDW Coefficient of Variation 15.4 % (11.5-14.5); RDW Standard Deviation 47.4 fL (36.4-46.3); Red Blood Count 4.69 M/uL (4.7-6.1); White Blood Count 8.26 K/uL (4.8-10.8)
--- NOTE | 2020-12-26 07:03 | Electrocardiogram Report ---
Test Reason : Blood Pressure : / mmHG Vent. Rate : 089 BPM Atrial Rate : 089 BPM P-R Int : 144 ms QRS Dur : 072 ms QT Int : 338 ms P-R-T Axes : 035 029 014 degrees QTc Int : 411 ms Normal sinus rhythm Nonspecific T wave abnormality Abnormal ECG When compared with ECG of 25-JUL-2019 11:54, No significant change was found Confirmed by Alex Tabor ([id number]) on 12/26/2020 7:02:45 AM Referred By: REFERRED SELF Confirmed By:Alex Tabor
[2020-12-26 07:21] LABS: BUN Creatinine Ratio 29.1 (10-20); Creatinine Clr Calc Pharmacy 96.7 ml/min; Est GFR (African American) 84.4; Est GFR (Non-African American) 72.8; Potassium 4.1 mmol/L (3.5-5.1)
[2020-12-26 07:22] LABS: C Reactive Protein 6.32 mg/dl (0-0.29)
--- NOTE | 2020-12-26 08:50 | XRay Report ---
XR chest 1V portable CLINICAL HISTORY: COVID-19 pneumonia COMPARISON STUDY: Chest radiograph and chest CT December 24, 2020. FINDINGS: Cardiomediastinal is unchanged. There is no pneumothorax. There is a possible trace right p leural effusion. Multifocal bilateral airspace opacities are similar to prior chest CT of December 24 021. No evidence for pulmonary edema. IMPRESSION: 1. No significant change in bilateral airspace opacities consistent with multifocal pneumonia. 2. Cardiomegaly. ACT 112: Negative or not required by law. Electronically signed by: Kody Johnson M.D. 12/26/2020 8:48 AM
--- NOTE | 2020-12-26 08:58 | XRay Report ---
KUB CLINICAL HISTORY: ?chronic ureteral stents? COMPARISON STUDY: CT of the abdomen and pelvis May 14, 2019. KUB May 16, 2019. FINDINGS: Bilateral ureteral stents are in place. No definite ureteral calculi are identified althoug h sensitivity is diminished on this examination. Pelvic calcifications represent phleboliths. Bowel g as pattern is normal. IMPRESSION: 1. Bilateral stents in place. No ureteral calculi identified although sensitivity is diminished on th is examination. 2. No evidence for a bowel obstruction. ACT 112: Negative or not required by law. Electronically signed by: Kody Johnson M.D. 12/26/2020 8:57 AM
[2020-12-26] MEDS: dexAMETHasone 6 MG in SYRINGE 0 ML IV SCH (09:18)
[2020-12-26] MEDS: cefTRIAXone SODIUM 2,000 MG in DEXTROSE 5% 50 ML IV SCH (09:19)
[2020-12-26] MEDS: FERROUS SULFATE 325 MG TAB PO SCH (09:21)
[2020-12-26] MEDS: FOLIC ACID 1 MG TAB PO SCH (09:21)
[2020-12-26] MEDS: METOPROLOL SUCC 25MG EXT REL TAB PO SCH (09:21)
[2020-12-26] MEDS: INSULIN ASPART 100 UNITS/ML 3 ML PEN SC SCH ×4 (09:22→20:50)
[2020-12-26] MEDS: INSULIN GLARGINE SOLOSTAR 100 UNITS/ML 3 ML PEN SC SCH ×2 (09:23→20:51)
[2020-12-26] MEDS: RIVAROXABAN 20 MG TAB PO SCH (17:00)
[2020-12-26] MEDS: REMDESIVIR 100 MG in SODIUM CHLORIDE 0.9% 230 ML IV SCH (19:45)
[2020-12-26] MEDS ORDERED: INSULIN GLARGINE SOLOSTAR 100 UNITS/ML 3 ML PEN SC SCH (21:00)
[2020-12-26] MEDS: SODIUM CHLORIDE 0.9% 10ML FLUSH IV SCH (21:00)
--- NOTE | 2020-12-26 23:37 | Hospitalist Progress Note ---
Date of Service December 26, 2020 Assessment & Plan (1) Acute respiratory failure with hypoxia: 2nd to mod-severe COVID-19 pneumonia. Stable overnight. Subjectively improved, radiographically unchanged. O2 requirement 10 L via wall HFNC. Proning encouraged but patient adamant that he cannot do such; again he will try to lay on his side. Pulmonary toilet. HFNC, keep sats 90% or greater. (2) Pneumonia due to 2019 novel coronavirus: Mod-severe. He is only 5 to 6 days into his illness at this point. Hypoxia / o2-requirement unchanged overnight. Continue decadron x 10 days, 6mg/day. Day #3 today. Continue remdesivir - dose #3 of 5 tonight. s/p convalescent plasma 12/25 without incident. If he were to worsen overnight with his hypoxia he could be a candidate for tocilizumab - last day of eligibility would be tomorrow. Recheck crp in am. Procal 0.06 making bacterial pneumonia superinfection unlikely. CTA 12/24 neg for PE. Cont flutter / incentive aden. (3) Hypertension: Continue metoprolol. Controlled. (4) Diabetes mellitus: HbA1C 6.7%. Uncontrolled due to steroids and stress of illness. Increase lantus to 18 units BID. Tighten novolog correction and carb coverage. (5) Hx of deep venous thrombosis: Noted. 05/2019. Continue xarelto 20mg daily. (6) Morbid obesity with BMI of 40.0-44.9, adult: BMI 39.9 (7) PAF (paroxysmal atrial fibrillation): NSR since admission. Cont metoprolol xl. Cont xarelto. (8) Gross hematuria: Likely due to retained ureteral stents, both of which have been present since . UTI could also be contributing. H/H acceptable. Send urine for culture. Rocephin 2gm daily. I spoke with Dr Salgado, on-call urology, re: his retained stents -- see below. (9) Ureteral stent retained: Bilateral stents. Present since placement on ~05/03/2019 at [facility] (see HPI). Was scheduled to have them exchanged in 07/[address] Femi Rice but uncertain if this actually happened. Whether they are from 07/2019 or 04/2019 they have been in place for [address] Salgado reported that he will ultimately need CT abd/pelvis to look at ureters, determine if calcification is present, etc. This can be done as outpatient once patient has recovered from COVID. He will ultimately need stent retrieval and placement of new stents. This could be a very complicated procedure given the chronicity of these stents. Refer [place] [facility] once discharged. (10) Complicated UTI (urinary tract infection): Start rocephin 2gm daily. Follow culture. (11) DVT prophylaxis: xarelto brother extensively updated by phone yesterday and today PT, OT justice requested Admission and Anticipated Discharge Date Admission Date: December 25, 2020 Subjective patient sitting in chair during the visit he stated he "felt better today" still coughing and still with BOWMAN but no worse than yesterday eating is ok no change in smell or taste tele normal overnight minimal chest tightness only when he coughs no GI symptoms I told him we verified that indeed his ureteral stents are still in place b/l on KUB today these were placed at [facility] ~05/03/2019 due to b/l obstructing stones and profound acute renal failure requiring emergent dialysis there is urology office note from early July 2019 indicating that he was to have stent exchange and laser litho of b/l kidney stones it does not sound like he had this procedure when asked why he didn't f/u with urology he stated his road on which he lives has poor van access in the winter and the poor winter conditions over the last few years prevented follow-up ?? Review of Systems Constitutional: + fatigue; no fever, no chills, no body aches and no anorexia Ear, Nose, Mouth, Throat: no nasal congestion and no sore throat Respiratory: + cough and + dyspnea Cardiovascular: no chest pain, no orthopnea and no edema Gastrointestinal: no abdominal pain, no nausea, no vomiting and no diarrhea/loose stools Genitourinary: + hematuria (intermittent, long-standing ) Physical Exam Constitutional: + morbidly obese; no acute distress and no altered mental status Eyes: + conjunctival abnormality (right conjunctivitis improved today ) ENMT: external ear and nose normal, oropharynx normal Respiratory: Auscultation: + diminished lung sounds (bases) and + crackles (bases); no wheezes Cardiovascular: Rate/Rhythm: regular rate and regular rhythm Heart Sounds: normal S1 and normal S2; no murmur Vessels: posterior tibial pulses present and dorsalis pedis pulses present; no JVD Extremities: no edema Gastrointestinal (Abdomen): normal bowel sounds, soft, nontender, no hepatosplenomegaly Psychiatric: Orientation: alert and oriented x 3 Results & Data Results & Data ([facility]) Vital Signs (Past 12 Hours) Vital Signs Temp Pulse Pulse Resp BP Pulse Ox 12/26/20 19:42 36.5 C 64 26 H 112/67 90 12/26/20 15:12 36.6 C 62 24 119/72 92 12/26/20 15:00 62 12/26/20 12:23 36.9 C 56 L 19 117/75 95 Laboratory Results Laboratory Results - last 24 hr 12/25/20 12/26/20 12/26/20 23:40 06:23 06:23 WBC 8.26 RBC 4.69 L Hgb 13.2 L Hct 39.4 L MCV 84.0 MCH 28.1 MCHC 33.5 RDW Std Deviation 47.4 H RDW Coeff of Mayito 15.4 H Plt Count 285 MPV 8.8 Immature Gran % (Auto) 0.4 Neut % (Auto) 82.1 Lymph % (Auto) 8.7 Overton % (Auto) 8.7 Eos % (Auto) 0.0 Baso % (Auto) 0.1 Neut # (Auto) 6.78 H Lymph # (Auto) 0.72 L Overton # (Auto) 0.72 H Eos # (Auto) 0.00 Baso # (Auto) 0.01 Immature Gran # (Auto) 0.03 H Sodium 137 Potassium 4.1 Chloride 107 Carbon Dioxide 23 Anion Gap 8.0 BUN 32 H Creatinine 1.11 Est Cr Clr Drug Dosing 96.7 Est GFR ( Amer) 84.4 Est GFR (Non-Af Amer) 72.8 BUN/Creatinine Ratio 29.1 H Glucose 153 H POC Glucose Calcium 9.0 AST 30 ALT 31 C-Reactive Protein 6.32 H Urine Color Brown Urine Appearance Cloudy A Urine pH 5.0 Ur Specific Moro 1.023 Urine Protein 3+ H Urine Glucose (UA) Negative Urine Ketones Negative Urine Blood 3+ H Urine Nitrite Negative Urine Bilirubin Negative Urine Urobilinogen Negative Ur Leukocyte Esterase 2+ H Urine WBC (Auto) >30 H Urine RBC (Auto) >30 H U Hyaline Cast (Auto) 0 U Epithel Cells (Auto) 0-5 Urine Bacteria (Auto) 3+ H Urine Yeast Not Reportable 12/26/20 12/26/20 12/26/20 07:42 11:32 16:07 WBC RBC Hgb Hct MCV MCH MCHC RDW Std Deviation RDW Coeff of Mayito Plt Count MPV Immature Gran % (Auto) Neut % (Auto) Lymph % (Auto) Overton % (Auto) Eos % (Auto) Baso % (Auto) Neut # (Auto) Lymph # (Auto) Overton # (Auto) Eos # (Auto) Baso # (Auto) Immature Gran # (Auto) Sodium Potassium Chloride Carbon Dioxide Anion Gap BUN Creatinine Est Cr Clr Drug Dosing Est GFR ( Amer) Est GFR (Non-Af Amer) BUN/Creatinine Ratio Glucose POC Glucose 152 H 199 H 259 H Calcium AST ALT C-Reactive Protein Urine Color Urine Appearance Urine pH Ur Specific Moro Urine Protein Urine Glucose (UA) Urine Ketones Urine Blood Urine Nitrite Urine Bilirubin Urine Urobilinogen Ur Leukocyte Esterase Urine WBC (Auto) Urine RBC (Auto) U Hyaline Cast (Auto) U Epithel Cells (Auto) Urine Bacteria (Auto) Urine Yeast 12/26/20 20:14 WBC RBC Hgb Hct MCV MCH MCHC RDW Std Deviation RDW Coeff of Mayito Plt Count MPV Immature Gran % (Auto) Neut % (Auto) Lymph % (Auto) Overton % (Auto) Eos % (Auto) Baso % (Auto) Neut # (Auto) Lymph # (Auto) Overton # (Auto) Eos # (Auto) Baso # (Auto) Immature Gran # (Auto) Sodium Potassium Chloride Carbon Dioxide Anion Gap BUN Creatinine Est Cr Clr Drug Dosing Est GFR ( Amer) Est GFR (Non-Af Amer) BUN/Creatinine Ratio Glucose POC Glucose 289 H Calcium AST ALT C-Reactive Protein Urine Color Urine Appearance Urine pH Ur Specific Moro Urine Protein Urine Glucose (UA) Urine Ketones Urine Blood Urine Nitrite Urine Bilirubin Urine Urobilinogen Ur Leukocyte Esterase Urine WBC (Auto) Urine RBC (Auto) U Hyaline Cast (Auto) U Epithel Cells (Auto) Urine Bacteria (Auto) Urine Yeast Diagnostic Findings Chest X-Ray 12/26/20 07:38 XR chest 1V portable CLINICAL HISTORY: COVID-19 pneumonia COMPARISON STUDY: Chest radiograph and chest CT December 24, 2020. FINDINGS: Cardiomediastinal is unchanged. There is no pneumothorax. There is a possible trace right pleural effusion. Multifocal bilateral airspace opacities are similar to prior chest CT of December 24, 2020. No evidence for pulmonary edema. IMPRESSION: 1. No significant change in bilateral airspace opacities consistent with multifocal pneumonia. 2. Cardiomegaly. ACT 112: Negative or not required by law. Electronically signed by: Kody Johnson M.D. 12/26/2020 8:48 AM KUB X-Ray 12/26/20 07:49 KUB CLINICAL HISTORY: ?chronic ureteral stents? COMPARISON STUDY: CT of the abdomen and pelvis May 14, 2019. KUB May 16, 2019. FINDINGS: Bilateral ureteral stents are in place. No definite ureteral calculi are identified although sensitivity is diminished on this examination. Pelvic calcifications represent phleboliths. Bowel gas pattern is normal. IMPRESSION: 1. Bilateral stents in place. No ureteral calculi identified although sensitivity is diminished on this examination. 2. No evidence for a bowel obstruction. ACT 112: Negative or not required by law. Electronically signed by: Kody Johnson M.D. 12/26/2020 8:57 AM PG Care Time/CCT Total # of Minutes Spent Total Time Spent with Patient: Total time spent is greater than 50% in coordination of care (as documented) at patient's floor/unit and/or counseling patient: Coding Level of Care Code 43644 Subseq Hosp Care Lvl 3 Diagnoses Acute respiratory failure with hypoxia J96.01 Pneumonia due to 2019 novel coronavirus U07.1; J12.82 Hypertension I10 Hypertension type: essential hypertension Diabetes mellitus E11.9 Diabetes mellitus type: type 2 Diabetes mellitus group home insulin use: without desulfurizer hand use Diabetes mellitus complication status: without complication Hx of deep venous thrombosis Z86.718 Morbid obesity with BMI of 40.0-44.9, adult E66.01; Z68.41 PAF (paroxysmal atrial fibrillation) I48.0 Gross hematuria R31.0 Ureteral stent retained Z96.0 Complicated UTI (urinary tract infection) N39.0 DVT prophylaxis Z29.9 (1) Hypertension Hypertension type: essential hypertension Qualified Code(s): I10 - Essential (primary) hypertension (2) Diabetes mellitus Diabetes mellitus type: type 2 Diabetes mellitus group home insulin use: without desulfurizer hand use Diabetes mellitus complication status: without complication Qualified Code(s): E11.9 - Type 2 diabetes mellitus without complications
[2020-12-27 06:54] LABS: BUN Creatinine Ratio 33.7 (10-20); Calcium 9.2 mg/dl (8.5-10.1); Creatinine Clr Calc Pharmacy 96.3 ml/min; Est GFR (African American) 82.6; Est GFR (Non-African American) 71.3; Potassium 4.1 mmol/L (3.5-5.1)
[2020-12-27 06:57] LABS: C Reactive Protein 2.3 mg/dl (0-0.29)
[2020-12-27] MEDS: FERROUS SULFATE 325 MG TAB PO SCH (08:59)
[2020-12-27] MEDS: FOLIC ACID 1 MG TAB PO SCH (08:59)
[2020-12-27] MEDS: METOPROLOL SUCC 25MG EXT REL TAB PO SCH (08:59)
[2020-12-27] MEDS: INSULIN GLARGINE SOLOSTAR 100 UNITS/ML 3 ML PEN SC SCH ×2 (09:00→21:26)
[2020-12-27] MEDS: INSULIN ASPART 100 UNITS/ML 3 ML PEN SC SCH ×4 (09:00→21:26)
[2020-12-27] MEDS: cefTRIAXone SODIUM 2,000 MG in DEXTROSE 5% 50 ML IV SCH (09:00)
--- NOTE | 2020-12-27 09:07 | Hospitalist Progress Note ---
Date of Service December 27, 2020 Assessment & Plan (1) Acute respiratory failure with hypoxia: 2nd to mod-severe COVID-19 pneumonia. Subjectively improved, radiographically unchanged. remains on 10 L via wall HFNC but no increased work of breathing or distress pulling 1500mL on incentive spirometer, using IS and flutter valve often Proning encouraged but patient adamant that he cannot do such; again he will try to lay on his side. (2) Pneumonia due to 2019 novel coronavirus: Mod-severe. He is one week into his illness at this point, started with symptoms on 12/21 continues with hypoxemia Continue decadron x 10 days, 6mg/day. Day #4 today. Continue remdesivir - dose #4 of 5 tonight. s/p convalescent plasma 12/25 without incident. CRP trending down, was 11 on admission, down to 2 this morning, not a candidate for Tocilizumab Procal 0.06 making bacterial pneumonia superinfection unlikely. CTA 12/24 neg for PE. Cont flutter / incentive aden. encouraged him to stay strong, be patient, will likely be here the rest of the week (3) Hypertension: Continue metoprolol. Controlled. (4) Diabetes mellitus: HbA1C 6.7%. Uncontrolled due to steroids and stress of illness. Increased lantus to 18 units BID on 12/26 Tighten novolog correction and carb coverage. better control thus far today, no hypoglycemia (5) Hx of deep venous thrombosis: Noted. 05/2019. Continue xarelto 20mg daily. (6) Morbid obesity with BMI of 40.0-44.9, adult: BMI 39.9 (7) PAF (paroxysmal atrial fibrillation): NSR since admission. Cont metoprolol xl. Cont xarelto. (8) Gross hematuria: Likely due to retained ureteral stents, both of which have been present since . UTI could also be contributing. H/H acceptable. Send urine for culture. Rocephin 2gm daily. I spoke with Dr Salgado, on-call urology, re: his retained stents -- see below. (9) Ureteral stent retained: Bilateral stents. Present since placement on ~05/03/2019 at [facility] (see HPI). Was scheduled to have them exchanged in 07/[address] Femi Rice but uncertain if this actually happened. Whether they are from 07/2019 or 04/2019 they have been in place for [address] Salgado reported that he will ultimately need CT abd/pelvis to look at ureters, determine if calcification is present, etc. This can be done as outpatient once patient has recovered from COVID. He will ultimately need stent retrieval and placement of new stents. This could be a very complicated procedure given the chronicity of these stents. Refer to [facility] once discharged. (10) Complicated UTI (urinary tract infection): Start rocephin 2gm daily. has a history of ESBL so he may need Ertapenem, still no results on culture from urine (11) DVT prophylaxis: xarelto PT, OT evals requested anticipate he will be here the rest of the week Admission and Anticipated Discharge Date Admission Date: December 25, 2020 Subjective patient says he is doing well, feels better since he was admitted he is on 10L wall high flow, saturations 87-94% while sitting up he is very compliant with incentive spirometer and flutter valve discussed laying on his side whenever possible, he said he will be compliant, he cannot lay prone no fever, no chills, no vomiting, no diarrhea, no chest pain, no weakness his appetite is good, drinking fluids, making urine but it is dark (always dark) reviewed chart, reviewed labs, CRP is down to 2, trending down, no indication for Tocilizumab Review of Systems Review of Systems: All systems reviewed & are unremarkable except as noted in Subjective Constitutional: no fever, no chills, no sweats, no fatigue and no weakness Respiratory: + dyspnea and + dyspnea on exertion; no cough and no sputum production Cardiovascular: no chest pain Gastrointestinal: no abdominal pain, no nausea, no vomiting, no constipation and no diarrhea/loose stools Physical Exam Constitutional: well developed, + ill appearing and + obese; no acute distress Neck: trachea midline, no thyromegaly Respiratory: normal respiratory effort, lungs clear to auscultation Cardiovascular: RRR, no murmur, no edema Gastrointestinal (Abdomen): normal bowel sounds, soft, nontender, no hepa tosplenomegaly Musculoskeletal: no cyanosis or clubbing, extremities motor strength 5/5 Skin: no rashes, warm and dry Neurologic: patellar DTR's 2+ bilat, sensation intact and PERRL, EOMI, accommodation nl, no face palsy, no dysarthria Psychiatric: A+Ox3, euthymic affect Lymphatic: no cervical or axillary lymphadenopathy Results & Data Results & Data ([facility]) Vital Signs (Past 12 Hours) Vital Signs Temp Pulse Pulse Resp BP Pulse Ox 12/27/20 03:49 36.6 C 52 L 20 124/70 91 12/27/20 02:06 51 L 12/27/20 00:21 36.8 C 53 L 22 124/95 92 Laboratory Results Laboratory Results - last 24 hr 12/26/20 12/26/20 12/26/20 11:32 16:07 20:14 Sodium Potassium Chloride Carbon Dioxide Anion Gap BUN Creatinine Est Cr Clr Drug Dosing Est GFR ( Amer) Est GFR (Non-Af Amer) BUN/Creatinine Ratio Glucose POC Glucose 199 H 259 H 289 H Calcium AST ALT C-Reactive Protein 12/27/20 12/27/20 05:46 07:32 Sodium 140 Potassium 4.1 Chloride 110 H Carbon Dioxide 26 Anion Gap 4.0 BUN 38 H Creatinine 1.13 Est Cr Clr Drug Dosing 96.3 Est GFR ( Amer) 82.6 Est GFR (Non-Af Amer) 71.3 BUN/Creatinine Ratio 33.7 H Glucose 133 H POC Glucose 140 H Calcium 9.2 AST 36 ALT 47 C-Reactive Protein 2.30 H Medications Administered Current Inpatient Medications Acetaminophen (Acetaminophen 325 Mg Tab) 650 mg PO Q4H PRN PRN Reason: pain or fever Stop: 01/24/21 02:07 Albuterol (Albuterol Hfa 8 Gm Inhaler) 2 puffs INH Q4R PRN PRN Reason: Shortness Of Breath Or Wheezing Stop: 01/24/21 02:59 Benzonatate (Benzonatate 100 Mg Capsule) 100 mg PO TID PRN PRN Reason: Cough Stop: 01/24/21 02:07 Dextrose (Dextrose 50% 50 Ml Syringe) 25 - 50 ml IV UD PRN; Protocol PRN Reason: Hypoglycemia Protocol Stop: 01/24/21 02:07 Ferrous Sulfate (Ferrous Sulfate 325 Mg Tab) 325 mg PO DAILY YASIR Stop: 01/24/21 08:59 Last Admin: 12/27/20 08:59 Dose: 325 mg Documented by: Folic Acid (Folic Acid 1 Mg Tab) 1 mg PO DAILY YASIR Stop: 01/24/21 08:59 Last Admin: 12/27/20 08:59 Dose: 1 mg Documented by: Glucagon (Glucagon For Inj 1 Mg Vial) 1 mg SQ UD PRN; Protocol PRN Reason: Hypoglycemia Protocol Stop: 01/24/21 02:07 Glucose (Glucose 10 Tabs/Tube) 4 - 8 tabs PO UD PRN; Protocol PRN Reason: Hypoglycemia Protocol Stop: 01/24/21 02:07 Glucose (Glucose 40% Gel 15 Gm Tube) 15 - 30 gm PO UD PRN; Protocol PRN Reason: Hypoglycemia Protocol Stop: 01/24/21 02:07 Dexamethasone 6 mg/ Syringe 1.5 mls @ 1 mls/min IV Q24H YASIR Stop: 01/24/21 08:59 Last Admin: 12/26/20 09:18 Dose: 1 mls/min Documented by: Remdesivir 100 mg/ Sodium (Chloride) 250 mls @ 250 mls/hr IV Q24H YASIR; Protocol Stop: 12/28/20 20:59 Last Infusion: 12/26/20 21:01 Dose: Infused Documented by: Ceftriaxone Sodium 2,000 mg/ (Dextrose) 70 mls @ 100 mls/hr IV Q24H YASIR; Protocol Stop: 12/31/20 07:59 Last Infusion: 12/26/20 09:54 Dose: Infused Documented by: Insulin Aspart (Insulin Aspart 100 Units/Ml 3 Ml Pen) 0 units SC ACHS [facility] Stop: 01/24/21 07:29 Last Admin: 12/27/20 09:00 Dose: Not Given Documented by: Insulin Glargine (Insulin Glargine Solostar 100 Units/Ml 3 Ml Pen) 18 units SC BID [facility] Stop: 01/25/21 20:59 Last Admin: 12/27/20 09:00 Dose: 18 units Documented by: Metoprolol Succinate (Metoprolol Succ 25mg Ext Rel Tab) 12.5 mg PO QAM [facility] Stop: 01/24/21 08:59 Last Admin: 12/27/20 08:59 Dose: Not Given Documented by: Miscellaneous (Carbohydrates For Hypoglycemia ) 15 - 30 gm PO UD PRN PRN Reason: Hypoglycemia Protocol Stop: 01/24/21 02:07 Ondansetron HCl (Ondansetron Inj 2 Mg/Ml 2 Ml Vial) 4 mg IV Q6H PRN PRN Reason: Nausea Stop: 01/24/21 02:07 Rivaroxaban (Rivaroxaban 20 Mg Tab) 20 mg PO QDD [facility] Stop: 01/24/21 16:29 Last Admin: 12/26/20 17:00 Dose: 20 mg Documented by: Sodium Chloride (Sodium Chloride 0.9% 10ml Flush) 30 ml IV Q24H [facility] Stop: 12/29/20 04:31 Last Admin: 12/26/20 21:00 Dose: 30 ml Documented by: PG Care Time/CCT Total # of Minutes Spent Total Time Spent with Patient: Total time spent is greater than 50% in coordination of care (as documented) at patient's floor/unit and/or counseling patient: Coding Level of Care Code 99929 Subseq Hosp Care Lvl 3 Diagnoses Acute respiratory failure with hypoxia J96.01 Pneumonia due to 2019 novel coronavirus U07.1; J12.82 Hypertension I10 Hypertension type: essential hypertension Diabetes mellitus E11.9 Diabetes mellitus complication status: without complication Diabetes mellitus senior care insulin use: without fuel assembler use Diabetes mellitus type: type 2 Hx of deep venous thrombosis Z86.718 Morbid obesity with BMI of 40.0-44.9, adult E66.01; Z68.41 PAF (paroxysmal atrial fibrillation) I48.0 Gross hematuria R31.0 Ureteral stent retained Z96.0 Complicated UTI (urinary tract infection) N39.0 DVT prophylaxis Z29.9 (1) Diabetes mellitus Diabetes mellitus complication status: without complication Diabetes mellitus senior care insulin use: without senior care use Diabetes mellitus type: type 2 Qualified Code(s): E11.9 - Type 2 diabetes mellitus without complications (2) Hypertension Hypertension type: essential hypertension Qualified Code(s): I10 - Essential (primary) hypertension
[2020-12-27] MEDS: dexAMETHasone 6 MG in SYRINGE 0 ML IV SCH (09:15)
[2020-12-27] MEDS: RIVAROXABAN 20 MG TAB PO SCH (17:47)
[2020-12-27] MEDS: REMDESIVIR 100 MG in SODIUM CHLORIDE 0.9% 230 ML IV SCH (21:24)
[2020-12-27] MEDS: SODIUM CHLORIDE 0.9% 10ML FLUSH IV SCH (22:45)
--- NOTE | 2020-12-28 06:56 | Hospitalist Progress Note ---
Date of Service December 28, 2020 Assessment & Plan (1) Acute respiratory failure with hypoxia: 2nd to mod-severe COVID-19 pneumonia. Subjectively improved, radiographically unchanged. down to room air this morning, 89-90%, no distress will ambulate later today, told him he should wear oxygen pulling 1500mL on incentive spirometer, using IS and flutter valve often if he remains stable on room air for 24 hours will get two step tomorrow, plan to go home with oxygen on exertion (2) Pneumonia due to 2019 novel coronavirus: Mod-severe. He is one week into his illness at this point, started with symptoms on 12/21 continues with hypoxemia Continue decadron x 10 days, 6mg/day. Day #5 today. Continue remdesivir - dose #5 of 5 tonight. s/p convalescent plasma 12/25 without incident. CRP trending down, not a candidate for Tocilizumab Procal 0.06 making bacterial pneumonia superinfection unlikely. CTA 12/24 neg for PE. Cont flutter / incentive aden. likely for d/c home tomorrow (3) Hypertension: Continue metoprolol. Controlled. (4) Diabetes mellitus: HbA1C 6.7%. Uncontrolled due to steroids and stress of illness. Increased lantus to 18 units BID on 12/26 Tighten novolog correction and carb coverage. better control thus far today, no hypoglycemic episodes can give NPH on discharge, will be on decadron 4 more days on discharge (5) Hx of deep venous thrombosis: Noted. 05/2019. Continue xarelto 20mg daily. (6) Morbid obesity with BMI of 40.0-44.9, adult: BMI 39.9 (7) PAF (paroxysmal atrial fibrillation): NSR since admission. Cont metoprolol xl. Cont xarelto. (8) Gross hematuria: Likely due to retained ureteral stents, both of which have been present since . UTI could also be contributing. H/H acceptable. Send urine for culture - E coli and strep species Rocephin 2gm daily change to Augmentin BID tomorrow (9) Ureteral stent retained: Bilateral stents. Present since placement on ~05/03/2019 at [facility] (see HPI). Was scheduled to have them exchanged in 07/[address] Femi Rice but uncertain if this actually happened. Whether they are from 07/2019 or 04/2019 they have been in place for [address] Salgado reported that he will ultimately need CT abd/pelvis to look at ureters, determine if calcification is present, etc. This can be done as outpatient once patient has recovered from COVID. He will ultimately need stent retrieval and placement of new stents. This could be a very complicated procedure given the chronicity of these stents. Refer to [facility] once discharged. (10) Complicated UTI (urinary tract infection): UTI possibly due to ureteral stents treated with rocephin 2gm daily. has a history of ESBL - however, this urine culture only shows E coli and strep, change to Augmentin (11) DVT prophylaxis: xarelto PT, OT evals requested anticipate discharge tomorrow Admission and Anticipated Discharge Date Admission Date: December 25, 2020 Subjective patient feeling better, highly motivated to go home he is down to room air this morning, hovering at 89% he wants to walk in the hallway today, told him he will need some oxygen when walking he is eating well, had a BM this morning, making urine (it is dark) urine culture with strep species and E coli (not ESBL) no labs today, sugars are stable discussed that I want him on room air for 24 hours to know he is stable can get a two step tomorrow if he wants to go home Review of Systems Review of Systems: All systems reviewed & are unremarkable except as noted in Subjective Physical Exam Constitutional: well developed, + obese and + disheveled; no acute distress Neck: trachea midline, no thyromegaly Respiratory: normal respiratory effort, lungs clear to auscultation Cardiovascular: RRR, no murmur, no edema Gastrointestinal (Abdomen): normal bowel sounds, soft, nontender, no hepatosplenomegaly Musculoskeletal: no cyanosis or clubbing, extremities motor strength 5/5 Skin: no rashes, warm and dry Neurologic: patellar DTR's 2+ bilat, sensation intact and PERRL, EOMI, accommodation nl, no face palsy, no dysarthria Psychiatric: A+Ox3, euthymic affect Lymphatic: no cervical or axillary lymphadenopathy Results & Data Results & Data ([facility]) Vital Signs (Past 12 Hours) Vital Signs Temp Pulse Pulse Resp BP BP Pulse Ox 12/28/20 03:34 36.5 C 41 L 22 106/57 L 91 04/27/21 00:15 52 L 12/27/20 23:16 36.4 C L 74 20 150/81 H 92 12/27/20 19:15 36.3 C L 58 L 27 H 117/71 95 Laboratory Results Laboratory Results - last 24 hr 12/27/20 12/27/20 12/27/20 11:46 16:35 20:41 POC Glucose 220 H 204 H 189 H 12/28/20 07:26 POC Glucose 108 H Microbiology 12/25/20 23:40 Urine,Clean Catch Urine Culture - Final Escherichia coli Gamma strep not enterococcus Medications Administered Current Inpatient Medications Acetaminophen (Acetaminophen 325 Mg Tab) 650 mg PO Q4H PRN PRN Reason: pain or fever Stop: 01/24/21 02:07 Albuterol (Albuterol Hfa 8 Gm Inhaler) 2 puffs INH Q4R PRN PRN Reason: Shortness Of Breath Or Wheezing Stop: 01/24/21 02:59 Benzonatate (Benzonatate 100 Mg Capsule) 100 mg PO TID PRN PRN Reason: Cough Stop: 01/24/21 02:07 Dextrose (Dextrose 50% 50 Ml Syringe) 25 - 50 ml IV UD PRN; Protocol PRN Reason: Hypoglycemia Protocol Stop: 01/24/21 02:07 Ferrous Sulfate (Ferrous Sulfate 325 Mg Tab) 325 mg PO DAILY [facility] Stop: 01/24/21 08:59 Last Admin: 12/28/20 08:45 Dose: 325 mg Documented by: Folic Acid (Folic Acid 1 Mg Tab) 1 mg PO DAILY YASIR Stop: 01/24/21 08:59 Last Admin: 12/28/20 08:45 Dose: 1 mg Documented by: Glucagon (Glucagon For Inj 1 Mg Vial) 1 mg SQ UD PRN; Protocol PRN Reason: Hypoglycemia Protocol Stop: 01/24/21 02:07 Glucose (Glucose 10 Tabs/Tube) 4 - 8 tabs PO UD PRN; Protocol PRN Reason: Hypoglycemia Protocol Stop: 01/24/21 02:07 Glucose (Glucose 40% Gel 15 Gm Tube) 15 - 30 gm PO UD PRN; Protocol PRN Reason: Hypoglycemia Protocol Stop: 01/24/21 02:07 Dexamethasone 6 mg/ Syringe 1.5 mls @ 1 mls/min IV Q24H [facility] Stop: 01/24/21 08:59 Last Admin: 12/28/20 08:46 Dose: 1 mls/min Documented by: Remdesivir 100 mg/ Sodium (Chloride) 250 mls @ 250 mls/hr IV Q24H [facility]; Protocol Stop: 12/28/20 20:59 Last Infusion: 12/27/20 22:45 Dose: Infused Documented by: Ceftriaxone Sodium 2,000 mg/ (Dextrose) 70 mls @ 100 mls/hr IV Q24H [facility]; Protocol Stop: 12/31/20 07:59 Last Infusion: 12/28/20 09:30 Dose: Infused Documented by: Insulin Aspart (Insulin Aspart 100 Units/Ml 3 Ml Pen) 0 units SC ACHS [facility] Stop: 01/24/21 07:29 Last Admin: 12/28/20 08:46 Dose: 4 units Documented by: Insulin Glargine (Insulin Glargine Solostar 100 Units/Ml 3 Ml Pen) 18 units SC BID [facility] Stop: 01/25/21 20:59 Last Admin: 12/28/20 08:48 Dose: 18 units Documented by: Metoprolol Succinate (Metoprolol Succ 25mg Ext Rel Tab) 12.5 mg PO QAM [facility] Stop: 01/24/21 08:59 Last Admin: 12/28/20 08:45 Dose: 12.5 mg Documented by: Miscellaneous (Carbohydrates For Hypoglycemia ) 15 - 30 gm PO UD PRN PRN Reason: Hypoglycemia Protocol Stop: 01/24/21 02:07 Ondansetron HCl (Ondansetron Inj 2 Mg/Ml 2 Ml Vial) 4 mg IV Q6H PRN PRN Reason: Nausea Stop: 01/24/21 02:07 Rivaroxaban (Rivaroxaban 20 Mg Tab) 20 mg PO QDD [facility] Stop: 01/24/21 16:29 Last Admin: 12/27/20 17:47 Dose: 20 mg Documented by: Sodium Chloride (Sodium Chloride 0.9% 10ml Flush) 30 ml IV Q24H [facility] Stop: 12/29/20 04:31 Last Admin: 12/27/20 22:45 Dose: 30 ml Documented by: PG Care Time/CCT Total # of Minutes Spent Total Time Spent with Patient: Total time spent is greater than 50% in coordination of care (as documented) at patient's floor/unit and/or counseling patient: Coding Level of Care Code 78212 Subseq Hosp Care Lvl 3 Diagnoses Acute respiratory failure with hypoxia J96.01 Pneumonia due to 2019 novel coronavirus U07.1; J12.82 Hypertension I10 Hypertension type: essential hypertension Diabetes mellitus E11.9 Diabetes mellitus complication status: without complication Diabetes mellitus fci insulin use: without supervisor product inspection use Diabetes mellitus type: type 2 Hx of deep venous thrombosis Z86.718 Morbid obesity with BMI of 40.0-44.9, adult E66.01; Z68.41 PAF (paroxysmal atrial fibrillation) I48.0 Gross hematuria R31.0 Ureteral stent retained Z96.0 Complicated UTI (urinary tract infection) N39.0 DVT prophylaxis Z29.9 (1) Diabetes mellitus Diabetes mellitus complication status: without complication Diabetes mellitus fci insulin use: without fci use Diabetes mellitus type: type 2 Qualified Code(s): E11.9 - Type 2 diabetes mellitus without complications (2) Hypertension Hypertension type: essential hypertension Qualified Code(s): I10 - Essential (primary) hypertension
[2020-12-28] MEDS: cefTRIAXone SODIUM 2,000 MG in DEXTROSE 5% 50 ML IV SCH (08:45)
[2020-12-28] MEDS: METOPROLOL SUCC 25MG EXT REL TAB PO SCH (08:45)
[2020-12-28] MEDS: FOLIC ACID 1 MG TAB PO SCH (08:45)
[2020-12-28] MEDS: FERROUS SULFATE 325 MG TAB PO SCH (08:45)
[2020-12-28] MEDS: INSULIN ASPART 100 UNITS/ML 3 ML PEN SC SCH ×4 (08:46→22:06)
[2020-12-28] MEDS: dexAMETHasone 6 MG in SYRINGE 0 ML IV SCH (08:46)
[2020-12-28] MEDS: INSULIN GLARGINE SOLOSTAR 100 UNITS/ML 3 ML PEN SC SCH ×2 (08:48→22:06)
[2020-12-28] MEDS: RIVAROXABAN 20 MG TAB PO SCH (16:52)
[2020-12-28] MEDS: REMDESIVIR 100 MG in SODIUM CHLORIDE 0.9% 230 ML IV SCH (20:55)
[2020-12-28] MEDS: SODIUM CHLORIDE 0.9% 10ML FLUSH IV SCH (22:05)
[2020-12-29] MEDS: dexAMETHasone 6 MG in SYRINGE 0 ML IV SCH (08:29)
[2020-12-29] MEDS: METOPROLOL SUCC 25MG EXT REL TAB PO SCH (08:30)
[2020-12-29] MEDS: FOLIC ACID 1 MG TAB PO SCH (08:31)
[2020-12-29] MEDS: INSULIN ASPART 100 UNITS/ML 3 ML PEN SC SCH ×2 (08:31→12:36)
[2020-12-29] MEDS: FERROUS SULFATE 325 MG TAB PO SCH (08:31)
[2020-12-29] MEDS: INSULIN GLARGINE SOLOSTAR 100 UNITS/ML 3 ML PEN SC SCH (08:31)
[2020-12-29] MEDS ORDERED: AMOXICILLIN/CLAVULANATE 875 MG TAB PO SCH (09:00)
--- NOTE | 2020-12-29 11:19 | Hospitalist Progress Note ---
Date of Service December 29, 2020 Assessment & Plan (1) Acute respiratory failure with hypoxia: 2nd to mod-severe COVID-19 pneumonia. Subjectively improved, radiographically unchanged. down to room air this morning, 89-90%, no distress will ambulate later today, told him he should wear oxygen pulling 1500mL on incentive spirometer, using IS and flutter valve often if he remains stable on room air for 24 hours will get two step tomorrow, plan to go home with oxygen on exertion (2) Pneumonia due to 2019 novel coronavirus: Mod-severe. He is one week into his illness at this point, started with symptoms on 12/21 continues with hypoxemia Continue decadron x 10 days, 6mg/day. Day #5 today. Continue remdesivir - dose #5 of 5 tonight. s/p convalescent plasma 12/25 without incident. CRP trending down, not a candidate for Tocilizumab Procal 0.06 making bacterial pneumonia superinfection unlikely. CTA 12/24 neg for PE. Cont flutter / incentive aden. likely for d/c home tomorrow (3) Hypertension: Continue metoprolol. Controlled. (4) Diabetes mellitus: HbA1C 6.7%. Uncontrolled due to steroids and stress of illness. Increased lantus to 18 units BID on 12/26 Tighten novolog correction and carb coverage. better control thus far today, no hypoglycemic episodes can give NPH on discharge, will be on decadron 4 more days on discharge (5) Hx of deep venous thrombosis: Noted. 05/2019. Continue xarelto 20mg daily. (6) Morbid obesity with BMI of 40.0-44.9, adult: BMI 39.9 (7) PAF (paroxysmal atrial fibrillation): NSR since admission. Cont metoprolol xl. Cont xarelto. (8) Gross hematuria: Likely due to retained ureteral stents, both of which have been present since . UTI could also be contributing. H/H acceptable. Send urine for culture - E coli and strep species Rocephin 2gm daily change to Augmentin BID tomorrow (9) Ureteral stent retained: Bilateral stents. Present since placement on ~05/03/2019 at [facility] (see HPI). Was scheduled to have them exchanged in 07/[address] Femi Rice but uncertain if this actually happened. Whether they are from 07/2019 or 04/2019 they have been in place for [address] Salgado reported that he will ultimately need CT abd/pelvis to look at ureters, determine if calcification is present, etc. This can be done as outpatient once patient has recovered from COVID. He will ultimately need stent retrieval and placement of new stents. This could be a very complicated procedure given the chronicity of these stents. Refer to [facility] once discharged. (10) Complicated UTI (urinary tract infection): UTI possibly due to ureteral stents treated with rocephin 2gm daily. has a history of ESBL - however, this urine culture only shows E coli and strep, change to Augmentin (11) DVT prophylaxis: xarelto PT, OT evals requested anticipate discharge tomorrow Admission and Anticipated Discharge Date Admission Date: December 25, 2020 Physical Exam Constitutional: well developed, + obese and + disheveled; no acute distress Neck: trachea midline, no thyromegaly Respiratory: normal respiratory effort, lungs clear to auscultation Cardiovascular: RRR, no murmur, no edema Gastrointestinal (Abdomen): normal bowel sounds, soft, nontender, no hepatosplenomegaly Musculoskeletal: no cyanosis or clubbing, extremities motor strength 5/5 Skin: no rashes, warm and dry Neurologic: patellar DTR's 2+ bilat, sensation intact and PERRL, EOMI, accommodation nl, no face palsy, no dysarthria Psychiatric: A+Ox3, euthymic affect Lymphatic: no cervical or axillary lymphadenopathy Results & Data Results & Data ([facility]) Vital Signs (Past 12 Hours) Vital Signs Temp Pulse Pulse Resp BP BP Pulse Ox 12/29/20 11:11 36.5 C 63 18 121/65 93 12/29/20 08:00 59 L 12/29/20 07:33 36.4 C L 70 18 123/75 90 12/29/20 04:24 36.9 C 54 L 19 129/69 91 Laboratory Results Laboratory Results - last 24 hr 12/28/20 12/28/20 12/28/20 11:16 16:17 20:38 POC Glucose 184 H 203 H 161 H 12/29/20 07:30 POC Glucose 90 Medications Administered Current Inpatient Medications Acetaminophen (Acetaminophen 325 Mg Tab) 650 mg PO Q4H PRN PRN Reason: pain or fever Stop: 01/24/21 02:07 Albuterol (Albuterol Hfa 8 Gm Inhaler) 2 puffs INH Q4R PRN PRN Reason: Shortness Of Breath Or Wheezing Stop: 01/24/21 02:59 Amoxicillin/Clavulanate Potassium (Amoxicillin/Clavulanate 875 Mg Tab) 1 tab PO BIDM [facility] Stop: 01/08/21 08:59 Last Admin: 12/29/20 08:31 Dose: 1 tab Documented by: Benzonatate (Benzonatate 100 Mg Capsule) 100 mg PO TID PRN PRN Reason: Cough Stop: 01/24/21 02:07 Dextrose (Dextrose 50% 50 Ml Syringe) 25 - 50 ml IV UD PRN; Protocol PRN Reason: Hypoglycemia Protocol Stop: 01/24/21 02:07 Ferrous Sulfate (Ferrous Sulfate 325 Mg Tab) 325 mg PO DAILY [facility] Stop: 01/24/21 08:59 Last Admin: 12/29/20 08:31 Dose: 325 mg Documented by: Folic Acid (Folic Acid 1 Mg Tab) 1 mg PO DAILY [facility] Stop: 01/24/21 08:59 Last Admin: 12/29/20 08:31 Dose: 1 mg Documented by: Glucagon (Glucagon For Inj 1 Mg Vial) 1 mg SQ UD PRN; Protocol PRN Reason: Hypoglycemia Protocol Stop: 01/24/21 02:07 Glucose (Glucose 10 Tabs/Tube) 4 - 8 tabs PO UD PRN; Protocol PRN Reason: Hypoglycemia Protocol Stop: 01/24/21 02:07 Glucose (Glucose 40% Gel 15 Gm Tube) 15 - 30 gm PO UD PRN; Protocol PRN Reason: Hypoglycemia Protocol Stop: 01/24/21 02:07 Dexamethasone 6 mg/ Syringe 1.5 mls @ 1 mls/min IV Q24H [facility] Stop: 01/24/21 08:59 Last Admin: 12/29/20 08:29 Dose: 1 mls/min Documented by: Insulin Aspart (Insulin Aspart 100 Units/Ml 3 Ml Pen) 0 units SC ACHS [facility] Stop: 01/24/21 07:29 Last Admin: 12/29/20 08:31 Dose: 5 units Documented by: Insulin Glargine (Insulin Glargine Solostar 100 Units/Ml 3 Ml Pen) 18 units SC BID [facility] Stop: 01/25/21 20:59 Last Admin: 12/29/20 08:31 Dose: 18 units Documented by: Metoprolol Succinate (Metoprolol Succ 25mg Ext Rel Tab) 12.5 mg PO QAM [facility] Stop: 01/24/21 08:59 Last Admin: 12/29/20 08:30 Dose: 12.5 mg Documented by: Miscellaneous (Carbohydrates For Hypoglycemia ) 15 - 30 gm PO UD PRN PRN Reason: Hypoglycemia Protocol Stop: 01/24/21 02:07 Ondansetron HCl (Ondansetron Inj 2 Mg/Ml 2 Ml Vial) 4 mg IV Q6H PRN PRN Reason: Nausea Stop: 01/24/21 02:07 Rivaroxaban (Rivaroxaban 20 Mg Tab) 20 mg PO QDD [facility] Stop: 01/24/21 16:29 Last Admin: 12/28/20 16:52 Dose: 20 mg Documented by: PG Care Time/CCT Total # of Minutes Spent Total Time Spent with Patient: Total time spent is greater than 50% in coordination of care (as documented) at patient's floor/unit and/or counseling patient: Coding Diagnoses Acute respiratory failure with hypoxia J96.01 Pneumonia due to 2019 novel coronavirus U07.1; J12.82 Hypertension I10 Hypertension type: essential hypertension Diabetes mellitus E11.9 Diabetes mellitus type: type 2 Diabetes mellitus nursing home insulin use: without nursing home use Diabetes mellitus complication status: without complication Hx of deep venous thrombosis Z86.718 Morbid obesity with BMI of 40.0-44.9, adult E66.01; Z68.41 PAF (paroxysmal atrial fibrillation) I48.0 Gross hematuria R31.0 Ureteral stent retained Z96.0 Complicated UTI (urinary tract infection) N39.0 DVT prophylaxis Z29.9 (1) Hypertension Hypertension type: essential hypertension Qualified Code(s): I10 - Essential (primary) hypertension (2) Diabetes mellitus Diabetes mellitus type: type 2 Diabetes mellitus nursing home insulin use: without keno terminal operator use Diabetes mellitus complication status: without complication Qualified Code(s): E11.9 - Type 2 diabetes mellitus without co mplications
--- NOTE | 2020-12-29 14:51 | Discharge Summary ---
Date of Service December 29, 2020 Admission HPI Per Admitting Provider Sriram Dorsey is a pleasant 60yo C male with history of DM/HTN and AF on Xarelto anticoagulation. Patient has been feeling fairly well over the last several days. However, he was mowing his lawn this afternoon around 15:00 when he developed shortness of breath on exertion and cough. He had some mild left sided chest pressure as well. Patient had several episodes of vomiting on 12/23/19, otherwise he denies fever/c hills/palpitations/abdominal pain/diarrhea/loss of taste or smell. His brother just tested positive for Covid-19 as well. Patient has been spending time with him. He has not yet been vaccinated against Covid-19 In the ER patient afebrile, HD stable. Tachypneic with RR of 26, initially saturating 89% on room air which improved to 94% on 3L NC ER Course: Dexamethasone 6mg IV Principal Diagnosis COVID 19 pneumonia, acute hypoxic respiratory failure Discharge Exam Constitutional well developed, + obese and + disheveled; no acute distress Neck trachea midline, no thyromegaly Respiratory normal respiratory effort, lungs clear to auscultation Cardiovascular RRR, no murmur, no edema Gastrointestinal (Abdomen) normal bowel sounds, soft, nontender, no hepatosplenomegaly Musculoskeletal no cyanosis or clubbing, extremities motor strength 5/5 Skin no rashes, warm and dry Neurologic patellar DTR's 2+ bilat, sensation intact and PERRL, EOMI, accommodation nl, no face palsy, no dysarthria Psychiatric A+Ox3, euthymic affect Discharge Data Allergies Allergy/AdvReac Type Severity Reaction Status Date / Time No Known Allergies Allergy Verified 12/24/20 22:16 Consultations 12/24/20 23:51 ED Decision to Admit Stat Ordered Studies 12/24/20 22:21 CT angio chest PE protocol Urgent Hospital Course (1) Acute respiratory failure with hypoxia: 2nd to mod-severe COVID-19 pneumonia. Subjectively improved, a lot better the past 48 hours down to room air for over 24 hours, no distress at all two step today: no oxygen at rest, requires 3L on exertion arranged for home oxygen, discharge home pulling 1500mL on incentive spirometer, using IS and flutter valve often (2) Pneumonia due to 2019 novel coronavirus: He is one week into his illness at this point, started with symptoms on 12/21 treated with decadron 6mg/day. complete course at home completed course of Remdesivir s/p convalescent plasma 12/25 without incident. CRP trending down, not a candidate for Tocilizumab Procal 0.06 making bacterial pneumonia superinfection unlikely. CTA 12/24 neg for PE. Cont flutter / incentive aden. d/c to home, arranged for home oxygen on exertion stay well nourished, well hydrated, get rest (3) Hypertension: Continue metoprolol. Controlled. (4) Diabetes mellitus: HbA1C 6.7%. Uncontrolled due to steroids and stress of illness. treated with lantus 18 units BID on 12/26 Tighten novolog correction and carb coverage. instructed to resume Metformin told him to follow low carb diet, no sweets for five days, avoid breads/pastas/rice (5) Hx of deep venous thrombosis: Noted. 05/2019. Continue xarelto 20mg daily. (6) Morbid obesity with BMI of 40.0-44.9, adult: BMI 39.9 (7) PAF (paroxysmal atrial fibrillation): NSR since admission. Cont metoprolol xl. Cont xarelto. (8) Gross hematuria: Likely due to retained ureteral stents, both of which have been present since . UTI could also be contributing. H/H acceptable. Send urine for culture - E coli and strep species Rocephin 2gm daily change to Augmentin BID, complete 10 more days for 14 days total (9) Ureteral stent retained: Bilateral stents. Present since placement on ~05/03/2019 at [facility] (see HPI). Was scheduled to have them exchanged in 07/[address] Femi Rice but uncertain if this actually happened. Whether they are from 07/2019 or 04/2019 they have been in place for [address] Salgado reported that he will ultimately need CT abd/pelvis to look at ureters, determine if calcification is present, etc. This can be done as outpatient once patient has recovered from COVID. He will ultimately need stent retrieval and placement of new stents. This could be a very complicated procedure given the chronicity of these stents. Refer to [facility] once discharged. (10) Complicated UTI (urinary tract infection): UTI possibly due to ureteral stents treated with rocephin 2gm daily. has a history of ESBL - however, this urine culture only shows E coli and strep, change to Augmentin (11) DVT prophylaxis: xarelto he is ambulating independently in the hallway Total Time Total Time Spent Total Time Spent (In Minutes): 33 minutes Total Time Includes: Examination of the Patient, Discharge Planning and Medication Reconciliation Discharge Plan Discharge Items Patient Disposition: Home - Self-Care Reason For Visit: COVID-19, HYPOXIA Discharge Diagnosis: COVID 19 pneumonia, acute hypoxic respiratory failure Complicated UTI, retained ureteral stents Condition on Discharge: Good Goals: complete course of dexamethasone for COVID complete course of Augmentin for UTI follow up with urology to discuss removal of stents Activity: Resume your previous activity Weightbearing: Full weightbearing Non-emergency contact: Primary Care Provider Call non-emergency contact if: you have any medication questions and your symptoms worsen Follow-up/Referrals: Baldemar Salgado DO [Physician] - 01/18/21 11:20 am (2-3 weeks, discuss removal of ureteral stents) Irina Maldonado MD [Primary Care Provider] - (one week (APPT REQUESTED)) Diet: Carb Consistent or DM2 Addtl Attending Provider Instructions: Medications: - DEXAMETHASONE: 6mg daily for 5 more days, start tomorrow morning - AUGMENTIN: take twice a day for 10 more days, next dose is this evening COVID 19 pneumonia, hypoxemia improved quickly, down to room air at rest since yesterday morning performed two step to identify how much oxygen you need on exertion please take dexamethasone every morning for 5 more days stay well nourished, well hydrated, get rest can take Zinc 220mg daily for immune support, this is over the counter UTI, hematuria, retained ureteral stents urine culture grew out E coli, Streptococcus will treat with Augmentin (amoxicillin) take for 10 more days you need to follow up with urology in 2-3 weeks to discuss removing these stents, will be complex procedure Diabetes: please resume taking Metformin 500mg twice a day this evening please be sure to follow a strict low carb diet for the next 5 days while on dexamethasone no sweets, avoid excessive breads, pastas, rice etc the dexamethasone with give you hyperglycemia Pending Studies at Discharge: No Stand-Alone Forms: [employer] Hers, Smoking Cessation Medications and DC Order Prescriptions: New amoxicillin-pot clavulanate [Augmentin] 875-125 mg Tablet 1 tab PO BIDM 10 Days Qty: 21 RF: 0 dexamethasone 4 mg tablet 6 mg PO DAILY 5 Days Qty: 8 RF: 0 Continued folic acid 1 mg tablet 1 mg PO DAILY Qty: 30 RF: 11 metformin 500 mg tablet 500 mg PO BID Qty: 60 RF: 11 potassium chloride 20 mEq tablet,ER particles/crystals 20 meq PO DAILY Qty: 30 RF: 11 ferrous sulfate 325 mg (65 mg iron) tablet 325 mg PO DAILY Qty: 30 RF: 5 metoprolol succinate 25 mg tablet extended release 24 hr 12.5 mg PO QAM RF: 0 Xarelto 20 mg tablet 20 mg PO DAILY RF: 0 Discharge Orders: Discharge Order (Routine); Ordered 12/29/20 Ordered By: Gael Owens/Other Patient Handouts: High Blood Sugar (Hyperglycemia), Hypoglycemia (Low Blood Sugar), Managing Type 2 Diabetes, 5 Steps for Eating Healthier, Managing Diabetes: The A1C Test Admission Data Admit Date/Time: 12/25/20 00:31 Attending Provider: Gael Cohen Admit Provider: Nadia Reddy Primary Care Provider: Irina Maldonado Other Providers: Nadia Reddy Other Interventions: Discharge Summary Assessment (RN) Last Done: 12/29/20 13:44 Coding Level of Care Code D/C Day Management >30 mins Diagnoses Acute respiratory failure with hypoxia J96.01 Pneumonia due to 2019 novel coronavirus U07.1; J12.82 Hypertension I10 Hypertension type: essential hypertension Diabetes mellitus E11.9 Diabetes mellitus type: type 2 Diabetes mellitus usp insulin use: without usp use Diabetes mellitus complication status: without complication Hx of deep venous thrombosis Z86.718 Morbid obesity with BMI of 40.0-44.9, adult E66.01; Z68.41 PAF (paroxysmal atrial fibrillation) I48.0 Gross hematuria R31.0 Ureteral stent retained Z96.0 Complicated UTI (urinary tract infection) N39.0 DVT prophylaxis Z29.9
[2020-12-29] MEDS ORDERED: Nursing to Pharmacy Communication SCH (15:00)
[2020-12-29] MEDS ORDERED: AMOXICILLIN/CLAVULANATE 875MG HOME PACK PO STA (15:01)
[2020-12-29] MEDS: RIVAROXABAN 20 MG TAB PO SCH (16:04)
[2020-12-30] MEDS ORDERED: dexAMETHasone 4 MG TAB PO SCH
== END 2020-12-29 16:59 | disposition home or self-care (01) | DRG 177 ==
LOC: ED 19:48 → SUATTDRO 12-25 00:31 → 2E 12-25 00:31

== ENCOUNTER 2021-03-24 08:48 | Observation (INO) ==
--- NOTE | 2021-03-23 10:32 | Anesthesiology Consultation ---
Date of Service March 23, 2021 Assessment & Plan (1) Encounter for pre-operative examination: Chart Review Chart Review: Acceptable Risk for Surgery (pending DOS preop labs, CXR and Cepheid Covid test ) and Patient NOT seen in Pre Admission Testing Pt never went for preop testing- will order CBC with diff and PRP for stat AM of surgery. Will also need repeat CXR DOS. - Check BSG AM DOS Per nursing assessment 03/21/2021, patient admits to local travel only. Wears mask in public. Patient is not vaccinated for Covid. Patient did test Covid + 12/24/[address] [facility]. Had breathing issues during Covid infectionfor oxygen while admittedbreathing issues have improved back to baseline. Patient was scheduled for preop Covid testing 03/22/2021 = but never went for testing. Pt will be exactly 90 days from positive Covid test on DOS. Will order Cepheid test DOS and leave to anesthesiologist discretion if additional PPE and/or surgery time needed. Patient last seen by cardiology 02/17/2021 = seen for preoperative cardiac evaluation to undergo ESWL followed by removal of ureteral stents in the near future. Patient able to climb 2 flights of steps with only chronic stable dyspnea on exertion. Rides bike to grocery store 3-4 days/week ([address] Chronic stable DOEhas not changed recently. No recent angina or signs or symptoms of heart failure. No symptoms suggestive of dysrhythmia or recurrent A. fib. "*Based on the patient's stable exertional tolerance, nature of upcoming procedures, normal LV systolic function, and the fact that he was admitted for SARS CoV-2 Pneumonitis complicated by acute hypoxic respiratory failure without cardiac complications December 2020 (as evidenced by undetectable Trop I levels) -- patient is an acceptable surgical risk to proceed with ESWL and ureteral stent removal as scheduled, provided he take his usual dose Toprol XL 12.5 mg the morning of surgery with sips of water. Patient may hold Xarelto x 48 hours leading up to these procedures. There is no need for further isch emic workup at this time" History Surgery Operation Date: 03/24/21 12:00 Proposed Procedures p Cystoscopy, Retrograde Pyelogram, Bilateral Ureteral Stent Exchange, - Baldemar Salgado, DO s Right Extracorporeal Shock Wave Lithotripsy - Baldemar Salgado, DO Height/Weight Height: 5 ft 10.5 in Weight: 143.789 kg Allergies Allergy/AdvReac Type Severity Reaction Status Date / Time No Known Allergies Allergy Verified 03/21/21 13:28 Medications Home Medications Medication Instructions Recorded Confirmed Last Taken metformin 500 mg tablet 500 mg PO BID #60 tab 10/27/20 03/21/21 12/24/20 rivaroxaban 20 mg tablet (Xarelto) 20 mg PO QAM 12/24/20 03/21/21 12/24/20 metoprolol succinate 25 mg 12.5 mg PO QAM #15 tab 12/29/20 03/21/21 Unknown tablet,extended release 24 hr ferrous sulfate 325 mg (65 mg 325 mg PO QAM 03/17/21 03/21/21 Unknown iron) tablet folic acid 1 mg tablet 1 mg PO QAM 03/17/21 03/21/21 Unknown potassium chloride 20 mEq 20 meq PO QAM 03/17/21 03/21/21 Unknown tablet,extended release(part/cryst) Past Medical History Medical History (Updated 03/23/21 @ 13:29 by Xin Plaza PA-C) Atrial fibrillation Paroxysmal. Diagnosed 05/2019--follows with Dr. Maxwell Diabetes mellitus, type 2 Exertional dyspnea Has oxygen available for PRN but has never needed to use oxygen History of COVID-19 Diagnosed 12/24/[address] [facility]--admitted to [facility] d/t breathing issues--had hypoxia, never intubated-- no current issues History of DVT of lower extremity (~05/2019) reason for Xarelto History of dysuria post-op urinary retention requiring stent (ureteral) Hypertension Morbid obesity with BMI of 40.0-44.9, adult On anticoagulant therapy xarelto daily for hx of DVT Pulmonary hypertension RVSP is elevated at 40 to 50 mmHg on 2019 ECHO Past Family History Family History Mother FHx: diabetes mellitus Hypertension Other No family history of adverse response to anesthesia Denies family history of Ovarian cancer Prostate cancer Myocardial infarction Breast cancer Colorectal cancer Past Surgical History Surgical History History of urinary tract surgery STENT PLACEMENT (URETERAL) Social History Smoking Status: Former smoker tobacco type: smokeless tobacco Do You Dip or Chew Tobacco: Yes Smoking End Date: quit 30yrs ago Hx Alcohol Use: No Hx Substance Use: No substance use type: does not use Testing Laboratory Results 12/25/20= HGB A1C: 6.7 Electrocardiogram Date: 12/24/20 Findings: + NSR @ (89bpm) Nonspecific T wave abnormality. When compared to EKG from July 25, 2019no significant changes found per cardio. Chest X-Ray Date: 12/26/20 1 view CXR Cardiomediastinal is unchanged. There is no pneumothorax. There is a possible trace right pleural effusion. Multifocal bilateral airspace opacities are similar to prior chest CT of December 24, 2020. No evidence for pulmonary edema. (Pt had been diagnosed with Covid and admitted at time of CXR) Echocardiogram Date: 05/16/19 Valvular Disease: + no significant valvular disease EF: 50-55% Mild concentric LVH. Left ventricular systolic function is normal. Grade 1 diastolic dysfunction. There is septal dyskinesis. The right ventricle is borderline dilated. RVSP is elevated at 40 to 50 mmHg.
[~2021-03-24 08:48] MED LIST: CIPROFLOXACIN / D5W 400 MG/200 ML BAG IV SCH; LR 15ML/HR IV SCH
[2021-03-24 09:24] LABS: Basophils # (auto) 0.03 K/uL (0-0.2); Basophils % (auto) 0.3 %; Eosinophils # (auto) 0.27 K/uL (0-0.5); Eosinophils % (auto) 2.5 %; Hemoglobin 13.5 g/dL (14.0-18.0); Immature Granulocytes # (auto) 0.02 K/uL (0.00-0.02); Immature Granulocytes % (auto) 0.2 %; Lymphocytes % (auto) 23.8 %; Mean Corpuscular Hemoglobin 27.8 pg (25-34); Mean Corpuscular Volume 88.7 fL (80-100); Mean Platelet Volume 8.1 fL (7.4-10.4); Monocytes # (auto) 1.12 K/uL (0.11-0.59); Monocytes % (auto) 10.2 %; Platelet Count 258 K/uL (130-400); RDW Coefficient of Variation 16.2 % (11.5-14.5); RDW Standard Deviation 53.1 fL (36.4-46.3); Red Blood Count 4.85 M/uL (4.7-6.1); White Blood Count 10.94 K/uL (4.8-10.8)
[2021-03-24] MEDS ORDERED: ONDANSETRON INJ 2 MG/ML 2 ML VIAL ONE (09:29)
[2021-03-24] MEDS ORDERED: fentaNYL citrate 100 MCG/2 ML VIAL ONE (09:29)
[2021-03-24] MEDS ORDERED: PROPOFOL IV EMULSION 10 MG/ML 20 ML VIAL IV ONE (09:29)
[2021-03-24] MEDS ORDERED: LIDOCAINE 2% 2 ML VIAL/AMP(20MG/ML) INFIL ONE (09:29)
[2021-03-24 09:34] LABS: Mean Corpuscular Hgb Conc 31.4 g/dL (32-36)
[2021-03-24] MEDS ORDERED: ePHEDrine sulfate 50 MG/ML AMP IV PRN (09:37)
[2021-03-24] MEDS ORDERED: ATROPINE SULFATE 0.1 MG/ML 10ML SYR IV PRN (09:37)
[2021-03-24] MEDS ORDERED: ONDANSETRON INJ 2 MG/ML 2 ML VIAL IV PRN ×2 (09:37→13:21)
[2021-03-24] MEDS ORDERED: fentaNYL citrate 100 MCG/2 ML VIAL IV PRN (09:37)
[2021-03-24 09:44] LABS: Calcium 9.5 mg/dl (8.5-10.1); Creatinine Clr Calc Pharmacy 93.2 ml/min; Est GFR (African American) 72.4 ml/min; Est GFR (Non-African American) 62.5 ml/min
[2021-03-24] MEDS ORDERED: ROCURONIUM BROMIDE 10 MG/ML 5 ML VIAL IV ONE ×4 (09:59→11:33)
[2021-03-24] MEDS ORDERED: SUCCINYLCHOLINE CHLORIDE 20 MG/ML 10 ML VIAL IV ONE (09:59)
[2021-03-24] MEDS ORDERED: MIDAZOLAM HCL 1 MG/ML 2ML VIAL ONE (10:00)
--- NOTE | 2021-03-24 10:26 | History & Physical Report ---
Date of Service March 24, 2021 Assessment & Plan (1) Complicated UTI (urinary tract infection): Plan: Risks and benefits discussed at length for procedure. These include bleeding, infection, injury to surrounding tissues or organs, and risks associated with an esthesia. Patient states understanding and agrees to proceed. Will sign consent and proceed. Plan for cystoscopy with possible bilateral stent exchange and lithotripsy (ESWL) (2) Ureteral stent retained: (3) Gross hematuria: History of Present Illness Primary Care Provider: Irina Maldonado MD Patient here for procedure. No changes in medical issues. No major changes in urinary issues. Continued issues and concerns. No change in pain or discomfort. No severe fevers or chills. No chest pain or shortness of breath. Risks and benefits discussed at length for procedure. These include bleeding, infection, injury to surrounding tissues or organs, and risks associated with anesthesia. Patient and/or family states understanding and agrees to proceed. Consent and supporting information completed. Allergies Allergy/AdvReac Type Severity Reaction Status Date / Time No Known Allergies Allergy Verified 03/24/21 09:14 Home Medications Medication Instructions Recorded Confirmed Type metformin 500 mg tablet 500 mg PO BID #60 tab 10/27/20 03/24/21 Rx rivaroxaban 20 mg tablet (Xarelto) 20 mg PO QAM 12/24/20 03/24/21 History metoprolol succinate 25 mg 12.5 mg PO QAM #15 tab 12/29/20 03/24/21 Rx tablet,extended release 24 hr ferrous sulfate 325 mg (65 mg 325 mg PO QAM 03/17/21 03/24/21 History iron) tablet folic acid 1 mg tablet 1 mg PO QAM 03/17/21 03/24/21 History potassium chloride 20 mEq 20 meq PO QAM 03/17/21 03/24/21 History tablet,extended release(part/cryst) Past Med/Surg History Medical History Atrial fibrillation Paroxysmal. Diagnosed 05/2019--follows with Dr. Maxwell Diabetes mellitus, type 2 Exertional dyspnea Has oxygen available for PRN but has never needed to use oxygen History of COVID-19 Diagnosed 12/24/20 @ [facility]--admitted to [facility] d/t breathing issues--had hypoxia, never intubated-- no current issues History of DVT of lower extremity (~05/2019) reason for Xarelto History of dysuria post-op urinary retention requiring stent (ureteral) Hypertension Morbid obesity with BMI of 40.0-44.9, adult On anticoagulant therapy xarelto daily for hx of DVT Pulmonary hypertension RVSP is elevated at 40 to 50 mmHg on 2019 ECHO Surgical History History of urinary tract surgery STENT PLACEMENT (URETERAL) Family History Mother FHx: diabetes mellitus Hypertension Other No family history of adverse response to anesthesia Denies family history of Ovarian cancer Prostate cancer Myocardial infarction Breast cancer Colorectal cancer Social History Smoking Status: Former smoker Smoking End Date: quit 30yrs ago; Second Hand Exposure: No; Do You Dip or Chew Tobacco: Yes; Tobacco Cessation Education Requested by Patient: No Hx Alcohol Use: No Hx Substance Use: No Preferred Language: Polish Communication Ability: Effective Diesel Technician Required: No Beliefs That Will Affect Care: None marital status: Single Current Living Situation: Alone Current Living Situation Comment: Lives on a property with brother nearby current occupational status: unemployed Other Information That Helps Us Care for You: No Feels Safe at Home: Yes Safety Concerns: Feels Safe At This Time Assistive Devices Comment: oxygen prn, never used, unsure of how many liters Review of Systems All systems reviewed & are unremarkable except as noted in HPI & below Physical Exam Physical Exam: General: Alert/Arousable. No Acute illness. Chronic medical issues. Obesity. HEENT: Inspection normal. Normal inspection of face. Normal inspection of neck. Psychologic: Normal affect/No change in mentation. Respiratory: No use of accessory muscles. No respiratory changes or exacerbation or changes with tachypnea or dyspnea. Cardiovascular: No tachycardia Skin: [place] and Dry. No new rashes or visible lesions. Abdomen: Normal inspection. No guarding. Obesity Results & Data ([facility]) Vital Signs (Past 12 Hours) Vital Signs Temp Pulse Resp BP Pulse Ox 03/24/21 09:25 36.5 C 88 22 159/85 H 98 PG Care Time/CCT Total # of Minutes Spent Total Time Spent with Patient: Total time spent is greater than 50% in coordination of care (as documented) at patient's floor/unit and/or counseling patient: Coding Level of Care Code None Diagnoses Complicated UTI (urinary tract infection) N39.0 Ureteral stent retained Z96.0 Gross hematuria R31.0
[2021-03-24] MEDS ORDERED: GENTAMICIN SULFATE 40 MG/ML 2 ML VIAL ONE (11:02)
[2021-03-24] MEDS ORDERED: DIATRIZOATE MEGLUMINE 30% 100ML VIAL INSTIL ONE (11:40)
[2021-03-24] MEDS ORDERED: SUGAMMADEX SODIUM 200 MG/2 ML VIAL IV ONE (11:41)
--- NOTE | 2021-03-24 11:57 | Operative Report ---
PG Post Operative Report Pre & Post Diagnosis Operation Date: 03/24/21 12:00 Pre-Op Diagnosis: Nephrolithiasis, Retained stents Post: Same with severely purulent urine I identified the patient and participated in the time-out.: Yes Procedure Operation Date: 03/24/21 12:00 Actual Procedures p Cystoscopy with Bilateral Extraction of retained, calcified Ureteral Stent, bilateral aspiration, Bilateral retrograde pyelogram, and stent placement - Baldemar Salgado, Surgeon Baldemar Salgado, II, DO Glaze Carrier None Estimated Blood Loss 1 Findings Consistent with Post-Op Diagnosis Severely encrusted stent with significant purulent urine drained after removal. Severe Hydronephrosis Specimens Urine Aspiration Right Kidney Urine Aspiration Left Kidney Drains 7 Fr x 28 cm Bilateral 20 Indonesian coud Anesthesia Type General Complications none Disposition Disposition: Recovery Room Indications Patient with retained ureteral stents for greater than 2 years. These have been placed for bilateral ureteral obstruction by kidney stones. Recurrent UTIs with E. coli ESBL. Risks and benefits discussed at length. Description of Procedure Patient was consented and brought back to the operating room. Patient was placed under anesthesia in the supine position and moved to the dorsal lithotomy position. Patient was prepped and draped in the regular sterile fashion. A time out was completed. A 30degree Cystoscope was placed into the bladder and the entire bladder was examined. The UO's were identified. Both stents had considerable encrustation. These were manipulated. And a majority of the debris was able to be displaced and flushed out. Starting on the right the ureter was cannulated next to the stent with a 5 Indonesian open-ended catheter. A wire was then placed and a retrograde pyelogram was completed. The collecting system was found to be severely dilated down to the UO. No considerable obstruction was seen next to the stent. The stent was grasped and attempted to be manipulated. It did appear to be uncoiling all following under fluoroscopy. The stent was slowly removed. Considerable manipulation and readjusting and repositioning of grasper was required but the stent was able to be removed slowly while monitoring under fluoroscopy. No considerable bleeding was noted coming from the UO. The wire was then used to place a dual-lumen catheter. Immediate urine was noted to be draining from the side channel. This urine was aspirated. A approximately 80 cc was aspirated from the kidney. A significant purulent urine was noted. This was taken and collected and sent for analysis. The stent had been fully removed and no signs of stent remained in place on the right. A retrograde pyelogram was once again completed. The wire was remained in place and the 10 Indonesian open-ended dual- lumen catheter was removed. A 7 Indonesian by 28 cm double-J stent was then placed over the wire. It was positioned in good position. The fluoroscopy was used to monitor the entire time. The stent appeared to be in good position. The procedure was then repeated on the left. There was what appeared to be obstruction in the mid ureter likely the previously seen stones on the CT from 2019. These were able to be bypassed. Considerable more manipulation was required in order to remove the encrusted retained stent on the left side. With the manipulation, repositioning, and gentle traction this was able to be removed and uncoiled without issue or concern. Once again no major bleeding was noticed. Urine was once again aspirated using the dual-lumen catheter. Significant purulence was once again appreciated. Over 100 cc were aspirated from the kidney on the left with the first 60+ cc a clear yellow and a large amount of debris on the last 10 cc. The stents were both then assessed. They were in good position within the bladder. Patient had extreme prostate enlargement with considerable varicosities and inflammation within the prostate. A minor amount of bleeding was noted at the bladder neck from the large prostatic varicosities. The stents were then assessed and there positioning was confirmed with fluoroscopy. With the stent in place, the bladder was emptied. The scope was removed. A 20 Indonesian coud catheter was placed and drainage was noted. The balloon was elevated. The patient was cleaned, aroused from anesthesia, and transferred to the pacu in stable condition having tolerated the procedure well with no complications. I was present and participated in all aspects of the procedure. The patient will be monitored in the PACU until transferred. We will monitor in the PACU however if patient is having issues with his history of poor health with multiple chronic medical issues and previous severely resistant infections as well as the large amount of purulence within the kidney bilaterally we will likely monitor with observation overnight. Maintain cathete r. We will likely recheck CT during this admission to determine neck steps in management of stone disease. I attest to the content of the Intraoperative Record and any orders documented therein. Any exceptions are noted below.
--- NOTE | 2021-03-24 12:57 | Anesthesiology Progress Note ---
Date of Service March 24, 2021 Anesthesia Post Procedure Vital Signs Vital Signs: Temp Pulse Pulse Resp BP Pulse Ox 03/24/21 12:45 97.5 F L 81 13 117/84 94 03/24/21 12:35 83 19 126/83 94 03/24/21 12:25 81 20 128/98 96 03/24/21 12:15 83 19 123/84 99 03/24/21 12:09 97.0 F L 87 12 128/77 98 03/24/21 09:25 97.7 F 88 22 159/85 H 98 Transfer of Care Handoff Completed per policy Notes Mental Status: alert / awake / arousable and participated in evaluation Patient Amnestic to Procedure: Yes Nausea / Vomiting: adequately controlled Pain: adequately controlled Airway Patency, RR, SpO2: stable & adequate BP & HR: stable & adequate Hydration State: stable & adequate Anesthetic Complications: no major complications apparent and Pt Satisfied with anesthetic care
[2021-03-24 13:16] LABS: Basophils # (auto) 0.02 K/uL (0-0.2); Basophils % (auto) 0.2 %; Eosinophils # (auto) 0.19 K/uL (0-0.5); Eosinophils % (auto) 2.1 %; Hematocrit (blood only) 40.8 % (42-52); Hemoglobin 12.7 g/dL (14.0-18.0); Immature Granulocytes # (auto) 0.02 K/uL (0.00-0.02); Immature Granulocytes % (auto) 0.2 %; Lymphocytes # (auto) 1.82 K/uL (1.2-3.4); Mean Corpuscular Hemoglobin 27.4 pg (25-34); Mean Corpuscular Volume 88.1 fL (80-100); Mean Platelet Volume 8.2 fL (7.4-10.4); Monocytes % (auto) 9.9 %; Neutrophils # (auto) 6.16 K/uL (1.4-6.5); Neutrophils % (auto) 67.6 %; Platelet Count 228 K/uL (130-400); RDW Coefficient of Variation 16.2 % (11.5-14.5); RDW Standard Deviation 51.6 fL (36.4-46.3); Red Blood Count 4.63 M/uL (4.7-6.1); White Blood Count 9.11 K/uL (4.8-10.8)
[2021-03-24 13:21] LABS: Mean Corpuscular Hgb Conc 31.1 g/dL (32-36)
[2021-03-24] MEDS ORDERED: MoRPHine SULFATE 2 MG/ML CARP IV PRN ×2 (13:21)
[2021-03-24] MEDS ORDERED: oxyCODONE HCL IR 5 MG TAB (IMMEDIATE RELEASE) PO PRN ×2 (13:21)
[2021-03-24] MEDS ORDERED: ACETAMINOPHEN 325 MG TAB PO PRN (13:21)
[2021-03-24 13:40] LABS: Calcium 9.4 mg/dl (8.5-10.1); Creatinine Clr Calc Pharmacy 95.5 ml/min; Est GFR (African American) 74.5 ml/min; Est GFR (Non-African American) 64.3 ml/min; Potassium 4.1 mmol/L (3.5-5.1)
[2021-03-24] MEDS: LACTATED RINGER'S 1,000 ML IV SCH ×2 (14:04→17:50)
[2021-03-24] MEDS: ERTAPENEM SODIUM 1,000 MG in SODIUM CHLORIDE 0.9% 50 ML IV SCH (14:19)
--- NOTE | 2021-03-24 14:48 | Hospitalist Consultation ---
Date of Consultation March 24, 2021 Assessment & Plan (1) UTI (urinary tract infection): 60 y/o M Hx HTN, HLD, DM, obese, AF, DVT, chronic urinary retention, nephrolithiasis with BL ureteral stents. The pt has a UTI and hematuria. He was admitted by urology for BL stent exchange. We are asked to evaluate him post-op due to his comorbidities. The pt states he feels well and is not having significant post-op pain. He is ambulating and tolerating PO. 1) UTI - placed on Ertapenem - coverage is appropriate. 2) Hematuria - irrigate cath as needed 3) DM - placed on a sliding scale 4) AF - rate is controlled - cont metoprolol - should resume Xarelto when possible 5) HTN - cont metoprolol Total time for this consult including review of labs, meds, imaging, records - discussion with pt and review of urology notes 35 min (2) Hematuria: (3) Urinary retention: (4) Complicated UTI (urinary tract infection): History of Present Illness Reason for Consultation: Post-op Attending Physician: Baldemar Salgado, II, DO History of Present Illness 60 y/o M Hx HTN, HLD, DM, obese, AF, DVT, chronic urinary retention, nephrolithiasis with BL ureteral stents. The pt has a UTI and hematuria. He was admitted by urology for BL stent exchange. We are asked to evaluate him post-op due to his comorbidities. The pt states he feels well and is not having significant post-op pain. He is ambulating and tolerating PO. PMH: 1) HTN 2) HLD 3) DM II 4) Morbid obesity 5) Nephrolithiasis - BL ureteral stents 6) Recurrent UTIs and ESBL organisms 7) Chronic atrial fibrillation 8) COVID requiring hospitalization 9) RLE DVT 10) Diverticulitis Surgical: Limited to ureteral stents Social: Quit smoking . Does not drink alcohol. Family: Father's cause of not known Mother owing to complications of DM Allergies Allergy/AdvReac Type Severity Reaction Status Date / Time No Known Allergies Allergy Verified 03/24/21 09:14 Home Medications Medication Instructions Recorded Confirmed Type metformin 500 mg tablet 500 mg PO BID #60 tab 10/27/20 03/24/21 Rx rivaroxaban 20 mg tablet (Xarelto) 20 mg PO QAM 12/24/20 03/24/21 History metoprolol succinate 25 mg 12.5 mg PO QAM #15 tab 12/29/20 03/24/21 Rx tablet,extended release 24 hr ferrous sulfate 325 mg (65 mg 325 mg PO QAM 03/17/21 03/24/21 History iron) tablet folic acid 1 mg tablet 1 mg PO QAM 03/17/21 03/24/21 History potassium chloride 20 mEq 20 meq PO QAM 03/17/21 03/24/21 History tablet,extended release(part/cryst) phenazopyridine 200 mg tablet 200 mg PO Q8H PRN #10 tab 03/24/21 Rx (Pyridium) tamsulosin 0.4 mg capsule 0.4 mg PO HS #30 cap 03/24/21 Rx Patient History Medical History Atrial fibrillation Paroxysmal. Diagnosed 05/2019--follows with Dr. Maxwell Diabetes mellitus, type 2 Exertional dyspnea Has oxygen available for PRN but has never needed to use oxygen History of COVID-19 Diagnosed 12/24/20 @ [facility]--admitted to [facility] d/t breathing issues--had hypoxia, never intubated-- no current issues History of DVT of lower extremity (~05/2019) reason for Xarelto History of dysuria post-op urinary retention requiring stent (ureteral) Hypertension Morbid obesity with BMI of 40.0-44.9, adult On anticoagulant therapy xarelto daily for hx of DVT Pulmonary hypertension RVSP is elevated at 40 to 50 mmHg on 2019 ECHO Surgical History History of urinary tract surgery STENT PLACEMENT (URETERAL) Family History Mother FHx: diabetes mellitus Hypertension Other No family history of adverse response to anesthesia Denies family history of Ovarian cancer Prostate cancer Myocardial infarction Breast cancer Colorectal cancer Social History Smoking Status: Former smoker Smoking End Date: quit 30yrs ago; Second Hand Exposure: No; Do You Dip or Chew Tobacco: Yes; Tobacco Cessation Education Requested by Patient: No Hx Alcohol Use: No Hx Substance Use: No Preferred Language: [place] Communication Ability: Effective Intravenous Therapy Nurse Required: No Beliefs That Will Affect Care: None marital status: Single Current Living Situation: Family Current Living Situation Comment: Lives on a property with brother nearby current occupational status: unemployed Other Information That Helps Us Care for You: No Feels Safe at Home: Yes Safety Concerns: Feels Safe At This Time Assistive Devices Comment: oxygen prn, never used, unsure of how many liters Review of Systems Review of Systems: General: AAO x 3, no distress ENT: No erythema or exudates, no thrush Eyes: JOSELUIS, EOMI Head and neck: Normocephalic, atraumatic, No JVD, neck is supple. Chest/heart: Nontender, S1,2, RRR, no murmurs, no gallops Lungs: CTAB, no wheezing or crackles Abdomen: Nontender, nondistended, BS+ Neuro: AAO x 3, speech is clear, no unilateral weakness or loss of sensation, coordination intact Musculoskeletal: No joint inflammation, muscle tenderness, FROM Skin: No acute rashes or ulcers Extremities: No clubbing, cyanosis, edema UG: Discomfort due to catheter and hematuria persists Physical Exam Physical Exam: In-person exam deferred due to + COVID test. Pt was examined by an MD on same day. Results & Data Results & Data ([facility]) Vital Signs (Past 12 Hours) Vital Signs Temp Pulse Pulse Resp BP Pulse Ox 03/24/21 13:21 97.9 F 93 H 18 124/82 93 03/24/21 12:55 83 17 122/80 94 03/24/21 12:45 97.5 F L 81 13 117/84 94 03/24/21 12:35 83 19 126/83 94 03/24/21 12:25 81 20 128/98 96 03/24/21 12:15 83 19 123/84 99 03/24/21 12:09 97.0 F L 87 12 128/77 98 03/24/21 09:25 97.7 F 88 22 159/85 H 98 PG Care Time/CCT Total # of Minutes Spent Total Time Spent with Patient: Total time spent is greater than 50% in coordination of care (as documented) at patient's floor/unit and/or counseling patient: Coding Level of Care Code 03652 Inpt Consult Level 3 Diagnoses UTI (urinary tract infection) N39.0 Hematuria R31.9 Urinary retention R33.9 Complicated UTI (urinary tract infection) N39.0
[2021-03-24] MEDS ORDERED: GLUCAGON FOR INJ 1 MG VIAL SQ PRN (15:04)
[2021-03-24] MEDS ORDERED: DEXTROSE 50% 50 ML SYRINGE IV PRN (15:04)
[2021-03-24] MEDS ORDERED: GLUCOSE 10 TABS/TUBE PO PRN (15:04)
[2021-03-24] MEDS ORDERED: CARBOHYDRATES FOR HYPOGLYCEMIA PO PRN (15:04)
[2021-03-24] MEDS ORDERED: GLUCOSE 40% GEL 15 GM TUBE PO PRN (15:04)
--- NOTE | 2021-03-24 17:06 | CT Scan Report ---
CT SCAN OF THE ABDOMEN AND PELVIS WITHOUT IV CONTRAST CLINICAL HISTORY: Nephrolithiasis. COMPARISON STUDY: Abdominal CT dated 05/14/2019. TECHNIQUE: CT scan of the abdomen and pelvis is performed from the lung bases to the proximal femora. Images are reviewed in the axial, sagittal, and coronal planes. IV contrast was not administered for this examination. A dose lowering technique was utilized adhering to the principles of ALARA. CT DOSE: 1746.66 mGy.cm FINDINGS: Lung bases: The heart is normal in size and without pericardial effusion. There are coronary artery c alcifications. The lung bases are clear noting bibasilar atelectasis. There is a small hiatal hernia. Calcified material is suggested within the lower lobe pulmonary arteries bilaterally. Liver: The unenhanced liver is normal in size, contour, and attenuation. There is no intrahepatic seth iary ductal dilatation. Gallbladder: There calcified gallstones with no CT evidence of acute cholecystitis. Spleen: Normal in size and attenuation. Pancreas: The unenhanced pancreas is grossly unremarkable. Adrenal glands: Unremarkable. Kidneys: The unenhanced kidneys are normal in size. Bilateral ureteral stents are in appropriate posi tion. There is moderate to severe bilateral hydroureteronephrosis. A 9 mm calculus is seen in the dis carol ann right ureter along the course of the stent on image #345. There are at least 5 calculi identified in the distal left ureter along course of the stent. The largest stone or cluster of stones measures up to 14 mm as seen on image #338. There are least 2 nonobstructing calculi in the left renal pelvis measuring up to 6 mm. Additional smaller stones and stone fragments are present throughout the left renal collecting system. A 12 mm calculus is seen in the lower pole on the right. Urothelial thickeni ng with surrounding inflammation is seen involving the renal pelvis bilaterally and both ureters. Hyp erdense material fills the left renal collecting system. Bilateral renal cysts are suggested but not well assessed without IV contrast. Abdominal vasculature: The abdominal aorta is normal in course and caliber. Bowel: There is moderate diverticulosis of the left colon without CT evidence of acute diverticulitis . No bowel obstruction is seen. The appendix is well-visualized and normal. Peritoneum: There is no intraperitoneal free air or abdominal ascites. Lymphadenopathy: None. Pelvic viscera: The prostate gland is enlarged and heterogeneous. The bladder is decompressed and a F oley catheter. Foci of intraluminal gas are nonspecific and may be related to instrumentation. The bl adder contains the ends of bilateral ureteral stents. Skeletal structures: There is mild to moderate lumbosacral spondylosis. Degenerative change is noted in the hips. No lytic or blastic lesions are seen. IMPRESSION: 1. Bilateral ureteral stents are in appropriate position. There is moderate to severe bilateral hydro ureteronephrosis. 2. There are calculi identified in both ureters along the course of the stents as detailed above. 3. Additional nonobstructing stones/fragments are present within both kidneys as detailed above. 4. Hyperdense material fills the left renal pelvis. This could represent retained contrast versus blo od products. 5. Urothelial thickening is seen in the renal pelvis bilaterally and along both ureters with surround ing inflammation. This may be related to obstruction/the presence of indwelling catheters. Correlate with urinalysis for evidence of superimposed infection. 6. The bladder is decompressed around a Green catheter. 7. Colonic diverticulosis without CT evidence of acute diverticulitis. 8. Cholelithiasis. 9. Calcified material is suggested within the lower lobe pulmonary arteries bilaterally. This is nons pecific and could be related to chronic thrombus. 10. Additional findings as above. ACT 112: Negative or not required by law. Electronically signed by: Lauri Ramsey M.D. 03/24/2021 5:04 PM
[2021-03-24] MEDS: INSULIN ASPART 100 UNITS/ML 3 ML PEN SC SCH ×2 (17:45→20:42)
[2021-03-25] MEDS: LACTATED RINGER'S 1,000 ML IV SCH ×2 (04:00→13:05)
[2021-03-25 07:24] LABS: Basophils # (auto) 0.02 K/uL (0-0.2); Basophils % (auto) 0.2 %; Eosinophils # (auto) 0.16 K/uL (0-0.5); Eosinophils % (auto) 1.4 %; Hematocrit (blood only) 38.3 % (42-52); Hemoglobin 12.1 g/dL (14.0-18.0); Immature Granulocytes # (auto) 0.01 K/uL (0.00-0.02); Immature Granulocytes % (auto) 0.1 %; Lymphocytes # (auto) 1.37 K/uL (1.2-3.4); Lymphocytes % (auto) 12.2 %; Mean Corpuscular Hemoglobin 27.6 pg (25-34); Mean Corpuscular Hgb Conc 31.6 g/dL (32-36); Mean Corpuscular Volume 87.2 fL (80-100); Mean Platelet Volume 8.5 fL (7.4-10.4); Monocytes # (auto) 1.26 K/uL (0.11-0.59); Monocytes % (auto) 11.2 %; Neutrophils % (auto) 74.9 %; Platelet Count 238 K/uL (130-400); RDW Standard Deviation 51.4 fL (36.4-46.3); Red Blood Count 4.39 M/uL (4.7-6.1); White Blood Count 11.22 K/uL (4.8-10.8)
[2021-03-25 07:52] LABS: BUN Creatinine Ratio 19.7 (10-20); Creatinine Clr Calc Pharmacy 102.9 ml/min; Est GFR (African American) 82.6 ml/min; Est GFR (Non-African American) 71.3 ml/min; Potassium 4.1 mmol/L (3.5-5.1)
[2021-03-25] MEDS: METOPROLOL SUCC 25MG EXT REL TAB PO SCH (08:09)
--- NOTE | 2021-03-25 08:51 | Urology Progress Note ---
Date of Service March 25, 2021 Assessment & Plan (1) Complicated UTI (urinary tract infection): (2) S/P ureteral stent placement: Plan: 60yo M with multiple comorbidities admitted s/p urological procedure with complicated UTI - POD #1 s/p Cystoscopy with bilateral extraction of retained, calcified ureteral stent, bilateral aspiration, bilateral retrograde pyelogram, and stent placement with Dr. Salgado. - Patient feeling well following his procedure yesterday. - Tolerating Mireles catheter and b/l ureteral stents with minimal bother. - CTAP yesterday noted b/l ureteral stents in good position, b/l hydro, b/l stones along stents, urothelial thickening, hyperdense material left renal pelvis - He is afebrile, VSS. - Labs reviewed, Wbc 11.22 and creatinine stable. - UC&S from kidney/ureter both preliminary gram negative bacilli, continues on IV Ertapenem. - ID consulted - Will await recommendations given hx of multi-resistant E.coli ESBL cultures. - Maintain mireles catheter. - Continue supportive care and antibiotic therapy. - Discharge pending ID recommendations. Admission and Anticipated Discharge Date Admission Date: March 24, 2021 Subjective Pt examined at bedside this AM. Awake, sitting up in bed on arrival. Tolerating mireles catheter with minimal intermittent bladder discomfort and dysuria. Mireles intact/patent, draining cloudy yellow urine with a few small clots noted in tubing. No fevers or chills. Denies nausea/vomiting. Denies abdominal and flank pain. Tolerating PO diet. He is eager to go home. Offers no additional complaints this morning. Chart review: CTA 03/24- IMPRESSION: 1. Bilateral ureteral stents are in appropriate position. There is moderate to severe bilateral hydroureteronephrosis. 2. There are calculi identified in both ureters along the course of the stents as detailed above. 3. Additional nonobstructing stones/fragments are present within both kidneys as detailed above. 4. Hyperdense material fills the left renal pelvis. This could represent retained contrast versus blood products. 5. Urothelial thickening is seen in the renal pelvis bilaterally and along both ureters with surrounding inflammation. This may be related to obstruction/the presence of indwelling catheters. Correlate with urinalysis for evidence of superimposed infection. 6. The bladder is decompressed around a Mireles catheter. 7. Colonic diverticulosis without CT evidence of acute diverticulitis. 8. Cholelithiasis. 9. Calcified material is suggested within the lower lobe pulmonary arteries bilaterally. This is nonspecific and could be related to chronic thrombus. Review of Systems Constitutional: as per Subjective / HPI Gastrointestinal: as per Subjective / HPI Genitourinary: + as per Subjective / HPI Physical Exam Constitutional: well developed, well nourished and + obese; no acute distress Respiratory: normal respiratory effort; no labored breathing and no audible wheezes Gastrointestinal (Abdomen): Inspection/Auscultation: abdomen normal to inspection Skin: Warm and dry Neurologic: moves all extremities and awake Psychiatric: Orientation: alert, oriented x 3 and cooperative Genitourinary: Mireles catheter intact Results & Data ([facility]) Vital Signs (Past 12 Hours) Vital Signs Temp Pulse Pulse Pulse Resp BP BP 03/25/21 04:17 37 C 86 16 105/68 03/24/21 22:29 36.5 C 94 H 16 132/82 03/24/21 20:12 102 H 03/24/21 19:52 37.0 C 97 H 18 142/85 H Pulse Ox 03/25/21 04:17 93 03/24/21 22:29 94 03/24/21 20:12 03/24/21 19:52 94 PG Care Time/CCT Total # of Minutes Spent Total Time Spent with Patient: Total time spent is greater than 50% in coordination of care (as documented) at patient's floor/unit and/or counseling patient: Coding Level of Care Code 60863 Subseq Hosp Care Lvl 2 Diagnoses Complicated UTI (urinary tract infection) N39.0 S/P ureteral stent placement Z96.0
[2021-03-25] MEDS: INSULIN ASPART 100 UNITS/ML 3 ML PEN SC SCH ×4 (10:40→20:39)
[2021-03-25] MEDS: ERTAPENEM SODIUM 1,000 MG in SODIUM CHLORIDE 0.9% 50 ML IV SCH (14:05)
--- NOTE | 2021-03-25 14:09 | Hospitalist Progress Note ---
Date of Service March 25, 2021 Assessment & Plan (1) UTI (urinary tract infection): Plan: - patient admitted by urology for complicated UTI caused by obstructive uropathy secondary to calcified ureteral stents and nephrolithiasis. He is POD#1 s/p stent exchange - patient with h/o MDR/polymicrobial UTI (ESBL E.coli and Enterococcus). His preliminary culture data is showing growth of GNB. Patient on Invanz. Will broaden and change to Merrem for antipseudomonal coverage. - At this time, his prelim culture is not showing any gram positive organisms. Do not feel that ampicillin is necessary. Typically would see preliminary growth of a GP organism at this time. - Would tailor abx regimen based on final culture data. - given that this is a complicated UTI, would advise treatment for 10-14 days (14 is culture positive for pseudomonas) - if patient spike a fever -- would obtain blood cultures (2) Hematuria: Plan: - Indwelling mireles in place. No gross/karl hematuria at present. Likely secon emmy to UTI/cystoscopy (3) Urinary retention: Plan: - mireles catheter in place. - to be managed by Primary team (4) Complicated UTI (urinary tract infection): Plan: - see above (5) S/P ureteral stent placement: Plan: - mgmt by primary team (6) DVT of lower extremity (deep venous thrombosis): Plan: - agree with holding xarelto for now; however, given his h/o DVT in the past/his morbid obesity--> would advise Lovenox prophylactic dosing for now just for DVT prophylaxis. hematuria currently not present - would suggest resumption of xarelto 48 hours post-op is okay with primary team (7) Hypertension: Plan: -continue metoprolol as prior to hospitalization. BP controlled (8) Diabetes mellitus: Plan: -Resume Metformin as prior to hospitalization -monitor blood sugars and continue SS coverage. Plan: - plan of care D/W Zenia SMITH with primary team. Admission and Anticipated Discharge Date Admission Date: March 24, 2021 Subjective Mr. Dorsey is a 60 y/o WM witha PMHx of A.Fib, past h/o DVT, chronic ACT (Xarelto), HTN, Pulmonary HTN, and NIDDM. In addition, he was diagnosed with C ovid in 12/2020. Was hospitalized and requiring supplemental O2 but has completely recovered. He has had recurrent UTI's and Nephrolithiasis (h/o MDR/Polymicrobial UTI--> ESBL E.Coli and Enterococcus). He underwent a stent exchange yesterday. Currenty on Invaz based on prior culture data. Has not had any fever spikes or leukocytosis. Has remained HD stable. Has a mireles catheter in place. Urine culture showing prelminary growth of GNB. Also to note: Covid PCR was positive. He was positive with symptoms and hospitalized in December. Has not been vaccinated. Currently, asymptomatic. Denies F/C, sore throat, cough, change in taste/smell, SOB, abd pain, N/V, D. Infection control has reviewed this case and deemed no isolation precautions necessary. Review of Systems Review of Systems: All systems reviewed and are unremarkable except as noted in HPI and below Denies fevers, chills, headache, nasal congestion, sore throat, cough, chest pain, shortness of breath, abdominal pain, nausea, vomiting, dysuria, hematuria, frequency, skin lesions or rashes. Physical Exam Physical Exam: General: Resting comfortably in his hospital bed. Morbidly obese but in NAD. Neck: No JVD. Negative hepatojugular reflex Cardiac: Very distant heart sounds- likely d/t habitus Lungs: CTA without W/R/R Abdomen: Difficult to examine d/t habitus. Normoactive X4. Soft and nontender in all quadrants. Extremities: + adiposity without true pitting edema. No peripheral clubbing cyanosis or edema Neuro: A&O X4 cranial nerves II through XII are grossly intact no focal neuro deficits Skin: No obvious skin lesions or rashes Results & Data Results & Data ([facility]) Vital Signs (Past 12 Hours) Vital Signs Temp Pulse Resp BP Pulse Ox 03/25/21 10:52 36.5 C 82 18 123/83 90 03/25/21 08:00 36.5 C 71 18 131/84 98 03/25/21 04:17 37 C 86 16 105/68 93 Laboratory Results 03/25/21 06:31 03/25/21 06:31 Procedure Result Verified Site Urine Culture Preliminary 03/25/21-1337 Organism 1 Gram negative bacilli [place] Count >100,000 CFU/ml Sens Sensitivities to Follow PG Care Time/CCT Total # of Minutes Spent Total Time Spent with Patient: Total time spent is greater than 50% in coordination of care (as documented) at patient's floor/unit and/or counseling patient: C[place] [address] Inpt Consult Level 4 Patient Type Established History Expanded Problem Focused Exam Expanded Problem Focused Medical Decision Making Moderate Complexity Diagnoses UTI (urinary tract infection) N39.0 Hematuria R31.9 Urinary retention R33.9 Complicated UTI (urinary tract infection) N39.0 S/P ureteral stent placement Z96.0 DVT of lower extremity (deep venous thrombosis) I82.409 Hypertension I10 Hypertension type: essential hypertension Diabetes mellitus E11.9 Diabetes mellitus type: type 2 Diabetes mellitus assisted insulin use: without long term care social worker use Diabetes mellitus complication status: without complication (1) Hypertension Hypertension type: essential hypertension Qualified Code(s): I10 - Essential (primary) hypertension (2) Diabetes mellitus Diabetes mellitus type: type 2 Diabetes mellitus long term care social worker insulin use: without assisted use Diabetes mellitus complication status: without complication Qualified Code(s): E11.9 - Type 2 diabetes mellitus without complications
[2021-03-25] MEDS ORDERED: MEROPENEM CONSULT ACITVE PRN (14:41)
--- NOTE | 2021-03-25 16:03 | Discharge Summary ---
Date of Service March 25, 2021 Admission HPI Per Admitting Provider Patient here for procedure. No changes in medical issues. No major changes in urinary issues. Continued issues and concerns. No change in pain or discomfort. No severe fevers or chills. No chest pain or shortness of breath. Risks and benefits discussed at length for procedure. These include bleeding, infection, injury to surrounding tissues or organs, and risks associated with anesthesia. Patient and/or family states understanding and agrees to proceed. Consent and supporting information completed. Admission Exam Per Admitting Provider See H&P Principal Diagnosis Retained stent, recurrent UTI, bilateral ureteral stone Discharge Exam General: Alert in no acute distress. HEENT: Normocephalic Atraumatic. Inspection normal. Psychologic: Normal affect. Skin: [place] and Dry. No rashes or visible lesions. Abdomen: Soft Non-distended. No rebound or guarding. Discharge Data Allergies Allergy/AdvReac Type Severity Reaction Status Date / Time No Known Allergies Allergy Verified 03/24/21 09:14 Consultations 03/24/21 13:21 Consult Hospitalist Routine Consult Infectious Diseases Routine Procedures Performed Operation Date: 03/24/21 12:00 Actual Procedures p Cystoscopy, Retrograde Pyelogram, Bilateral Ureteral Stent Exchange(Bilateral) - Baldemar Salgado DO Ordered Studies 03/24/21 14:18 CT abd pelvis wo con Routine Hospital Course (1) Complicated UTI (urinary tract infection): (2) S/P ureteral stent placement: 60yo M with multiple comorbidities admitted s/p urological procedure with complicated UTI - POD #1 s/p Cystoscopy with bilateral extraction of retained, calcified ureteral stent, bilateral aspiration, bilateral retrograde pyelogram, and stent placement with Dr. Salgado. - Patient feeling well following his procedure yesterday. - Tolerating Mireles catheter and b/l ureteral stents with minimal bother. - CTAP yesterday noted b/l ureteral stents in good position, b/l hydro, b/l stones along stents, urothelial thickening, hyperdense material left renal pelvis - He is afebrile, VSS. - Labs reviewed, Wbc 11.22 and creatinine stable. - UC&S from kidney/ureter both preliminary gram negative bacilli, continues on IV Ertapenem. - ID consulted - Will await recommendations given hx of multi-resistant E.coli ESBL cultures. - Maintain mireles catheter. - Continue supportive care and antibiotic therapy. - Discharge pending ID recommendations. Total Time Total Time Spent Total Time Spent (In Minutes): 10 minutes Total Time Includes: Examination of the Patient, Discharge Planning, Medication Reconciliation and Communication With Other Providers Discharge Plan Discharge Items Patient Disposition: Home - Self-Care Reason For Visit: Nephrolithiasis Discharge Diagnosis: Nephrolithiasis Activity: Per Instructions section Lifting: No more than 50 pounds Bathing Comment: Ok to shower. No tub baths or soaks. Sexual Activity: Wait until after follow-up appointment Exercise/Sports: Wait until after follow-up appointment Driving/Machine Use: Do not drive if taking prescription pain medication. Non-emergency contact: Surgeon and Urologist Call non-emergency contact if: you have any medication questions, your symptoms worsen, your pain is not controlled, your pain is worsening, your pain is unusual for you, your pain is concerning for you, you have a fever and your temperature is above 101.5 Follow-up/Referrals: Irina Maldonado MD [Primary Care Provider] - Ambreen Sneed PA-C [Physician [employer] Machine [employer]] - 03/31/21 1:30 pm Diet: Carb Consistent or DM2 and Heart Healthy Addtl Attending Provider Instructions: Please take all medications as prescribed and keep all follow-ups as scheduled. Please call our office at [phone] with any questions, concerns or need to reschedule appointments for any reason. We are happy to assist you. While you have a ureteral stent in place: Some discomfort is normal. Certain movements may trigger pain or a feeling that you need to urinate. You may also feel mild soreness or pressure before or during urination. These symptoms should go away a few days after the stent is removed. Your urine may be slightly pink or red. This is due to bleeding caused by m inor irritation from the stent. This may happen on and off while you have the stent, it is not harmful and is to be expected. Medication to help minimize discomfort or bladder spasms, or to prevent infection may be prescribed. Take this as directed. Drink plenty of fluids to help flush out your urinary tract. If you go home with a catheter, wash with soapy water and a fresh washcloth twice daily. We recommend mild bar soap such as Dial or Dove. Mireles Catheter: Keep the catheter well secured with either a leg back or leg strap with large bag. Empty your bag when it's about half full. You may notice some blood in the bag. This is normal after surgery and while the catheter is in place. Use mild soap (such as Dove or Dial) and water to wash the catheter and the head of your penis daily, or more frequently if needed. You may shower as normal. Please avoid tub baths or soaking until catheter removed and incisions well healed. Wearing sweat pants while you have the catheter is recommended, they will be more comfortable. When to call [facility] at [phone]: Your urine contains heavy blood clots You are constantly leaking urine Fever of 101F or higher, chills, nausea, or vomiting Your pain is not relieved with medication The end of the stent comes out of your urethra Infectious disease was able to get patient approved for fosfomycin. Patient is to start this medication and take as prescribed. Can restart Xarelto. Patient home with catheter. Office will call to set up follow-up. Will need to discuss stone treatment Pending Studies at Discharge: No Stand-Alone Forms: My [facility] Medications and DC Order Prescriptions: New phenazopyridine [Pyridium] 200 mg tablet 200 mg PO Q8H PRN (Reason: pain) Qty: 10 RF: 0 tamsulosin 0.4 mg capsule 0.4 mg PO HS Qty: 30 RF: 0 Continued metformin 500 mg tablet 500 mg PO BID Qty: 60 RF: 11 metoprolol succinate 25 mg tablet extended release 24 hr 12.5 mg PO QAM Qty: 15 RF: 5 Xarelto 20 mg tablet 20 mg PO QAM RF: 0 potassium chloride 20 mEq tablet,ER particles/crystals 20 meq PO QAM RF: 0 ferrous sulfate 325 mg (65 mg iron) tablet 325 mg PO QAM RF: 0 folic acid 1 mg tablet 1 mg PO QAM RF: 0 Discharge Orders: Discharge Order (Routine); Ordered 03/25/21 Ordered By: Baldemar Salgado Admission Data Admit Date/Time: 03/24/21 12:27 Attending Provider: Baldemar Salgado Admit Provider: Baldemar Salgado Primary Care Provider: Irina Maldonado Other Providers: Max Banuelos ; Zenia Forte ; Eagle Chopra ; Antwan Fung ; Noel Mcbride ; Mariusz Moreno ; Gael Cohen ; Effie Rogel ; Crista Bolivar ; Gera Rosales ; Ambreen Min ; Nadia Reddy ; Colin Rice ; Fili Kramer ; Duong Allen ; Nirav Ca ; Magali Ortega ; Anthony Doss ; Eagle Tobin ; Ernie Steen ; Lucy Pepe ; Chencho Anderson ; Ambreen Easley ; Sarmad Saunders ; Errol King ; Silvino Hua ; Abdoul Reddy I. ; Nuno Dong II ; Magdalena Montoya ; Shane Donahue Coding Level of Care Code D/C DAY MANAGEMENT <30 MINS Diagnoses Complicated UTI (urinary tract infection) N39.0 S/P ureteral stent placement Z96.0
[2021-03-25] MEDS: MEROPENEM 500 MG in SYRINGE 0 ML IV SCH (20:38)
[2021-03-25] MEDS: metFORMIN HCL 500 MG TAB PO SCH (20:39)
[2021-03-26] MEDS: MEROPENEM 500 MG in SYRINGE 0 ML IV SCH ×2 (03:32→08:24)
[2021-03-26 07:46] LABS: Basophils # (auto) 0.02 K/uL (0-0.2); Basophils % (auto) 0.2 %; Hematocrit (blood only) 39.9 % (42-52); Hemoglobin 12.9 g/dL (14.0-18.0); Immature Granulocytes # (auto) 0.02 K/uL (0.00-0.02); Immature Granulocytes % (auto) 0.2 %; Lymphocytes # (auto) 1.96 K/uL (1.2-3.4); Lymphocytes % (auto) 19.3 %; Mean Corpuscular Hgb Conc 32.3 g/dL (32-36); Mean Corpuscular Volume 86.7 fL (80-100); Mean Platelet Volume 8.3 fL (7.4-10.4); Monocytes # (auto) 1.43 K/uL (0.11-0.59); Monocytes % (auto) 14.1 %; Neutrophils # (auto) 6.41 K/uL (1.4-6.5); Neutrophils % (auto) 63.2 %; Platelet Count 225 K/uL (130-400); RDW Coefficient of Variation 15.7 % (11.5-14.5); RDW Standard Deviation 50.6 fL (36.4-46.3); White Blood Count 10.14 K/uL (4.8-10.8)
[2021-03-26 08:04] LABS: BUN Creatinine Ratio 19.1 (10-20); Calcium 9.3 mg/dl (8.5-10.1); Creatinine Clr Calc Pharmacy 109.3 ml/min; Est GFR (African American) 90.3 ml/min; Est GFR (Non-African American) 77.9 ml/min; Potassium 3.9 mmol/L (3.5-5.1)
[2021-03-26] MEDS: INSULIN ASPART 100 UNITS/ML 3 ML PEN SC SCH (08:18)
[2021-03-26] MEDS: ENOXAPARIN INJ 40 MG/0.4 ML SYR SQ SCH ×2 (08:19→08:32)
[2021-03-26] MEDS: metFORMIN HCL 500 MG TAB PO SCH (08:21)
[2021-03-26] MEDS: METOPROLOL SUCC 25MG EXT REL TAB PO SCH (08:21)
[2021-03-26] MEDS ORDERED: FOLIC ACID 1 MG TAB PO SCH (09:00)
[2021-03-26] MEDS ORDERED: FERROUS SULFATE 325 MG TAB PO SCH (09:00)
== END 2021-03-26 10:06 | disposition home or self-care (01) ==
LOC: 2S 08:48 → ASU 08:48 → 2W 19:56